=== PATIENT | male | born 1970 | race Caucasian/White ===

== ENCOUNTER 2024-03-09 21:06 | Emergency (ER) | payer MEDICAID, SELFPAY ==
--- NOTE | ~2024-03-09 | US_ITS ---
EXAMINATION: US ABDOMEN LIMITED CLINICAL INFORMATION: Right upper quadrant pain. COMPARISON: None available. TECHNIQUE: Real-time imaging of the right upper quadrant abdominal viscera. FINDINGS: PANCREAS: Normal. LIVER: Normal. The liver is normal in size. The liver contour is normal. Parenchymal echogenicity is normal. No focal hepatic lesion. There is no intrahepatic biliary duct dilatation seen. GALLBLADDER: A single gallstone is noted dependently within the gallbladder lumen measuring 1.5 cm in width in the region of the gallbladder neck with posterior acoustic shadowing. Minimal gallbladder sludge is present elsewhere within the gallbladder lumen. The gallbladder wall measures 3 mm in width, within normal limits of size. No pericholecystic fluid collections noted. No report of obtaining a sonographic Farah sign indicated in the technologist worksheet. COMMON BILE DUCT: Normal in caliber measuring 0.4 cm in diameter. RIGHT KIDNEY: Normal. No hydronephrosis. No renal calculi or focal parenchymal lesions. The kidney measures 12.1 cm in maximum dimension. FREE FLUID: None. US/US abdomen limited IMPRESSION: *Cholelithiasis. Single 1.5 cm gallstone within the gallbladder. No gallbladder wall thickening or pericholecystic fluid collections. No biliary duct dilatation. Electronically signed by: Jose Regan MD 03/10/2024 06:18 AM EDT
[2024-03-09 21:12] VITALS: PULSE 90; O2SAT 99
--- NOTE | 2024-03-09 21:19 | ED_ITS ---
HPI - Abdominal Pain General Chief Complaint: Abdominal Pain Stated Complaint: AB pain-Ab Cancer, not able to sit still,Louise pt Time Seen by Provider: 03/09/24 21:15 Source: patient Mode of arrival: EMS Limitations: no limitations History of Present Illness ED Provider: jose manuel ARRIOLA narrative: Patient has chronic abdominal pain for more than 10 years been to call [facility] multiple times today he went there 3 times comes here for same pain patient is very dramatic and moving all around received 100 mcg of fentanyl and 5 of Versed by EMS Related Data Allergies Allergy/AdvReac Type Severity Reaction Status Date / Time No Known Allergies Allergy Verified 03/09/24 21:27 Review of Systems Review of Systems Yes all other systems are reviewed and are negative [facility] Past Medical History Medical History (Updated 03/10/24 @ 01:57 by Angelo Pinto MD) Chronic abdominal pain Neuroendocrine cancer Social History Social History Smoked in Last 30 Days: Yes Do you have a plan to hurt others: No Plan Physical Exam ED Vital Signs: Vital Signs - 24 hr 03/09/24 21:24 03/09/24 22:22 Pulse Rate 88 54 Respiratory Rate 28 H 18 Blood Pressure 146/96 H 151/90 H Pulse Oximetry 99 99 Oxygen Delivery Method Room Air Room Air BMI result Body Mass Index 33.2 Appearance: Alert. Oriented X3. Shouting in the ER very dramatic Eyes: No pallor or icterus ENT: Pharynx normal. Oral Mucosa moist Neck: Normal inspection. Neck supple. CVS: Normal heart rate and rhythm. Pulses normal. Respiratory: No respiratory distress. Equal air entry bilateral, no wheezing/rales/rhonchi Abdomen: Soft and epigastric tenderness. Bowel sounds are present, no mass palpable, no CVA tenderness Skin: Skin warm and dry. Normal skin color. Normal skin turgor. Extremities: No lower extremity edema. No calf tenderness Neuro: Oriented X 3. No motor deficit. No sensory deficit.No cerebellar signs , cranial nerves II-XII intact Medical Decision Making Medical Decision Making MDM Narrative: Patient's old records from [facility] reviewed had a CT scan of the abdomen in 02/13/2024 which showed partially calcified neuroendocrine mesenteric mass which was stable in size patient received medication for sedation as patient was very agitated on arrival sleeping at this time with stable vitals labs are stable will re-evaluate in the a.m. and plan to discharge once he is sober Lab Data MDM Lab Attestation statement: I reviewed the patient's lab results. 03/10/24 00:29 03/10/24 00:29 Labs: Lab Results 03/10/24 Range/Units 00:29 WBC 15.8 H (4.8-10.8) X10*3/uL RBC 4.98 (4.60-5.80) X10*6/uL Hgb 15.4 (14.0-18.0) g/dl Hct 44.5 (42.0-52.0) % MCV 89.4 (80.0-98.0) fL MCH 30.9 (27.0-33.0) pg MCHC 34.6 (31.0-36.0) g/dl RDW 12.6 (11.0-16.0) % Plt Count 244 (160-400) X10*3/uL MPV 11.2 (9.4-12.4) fL Immature Gran % (Auto) 0.8 H (0.0-0.4) % Neut % (Auto) 83.9 H (45-73) % Lymph % (Auto) 9.7 L (20-40) % [place] % (Auto) 5.1 (2-11) % Eos % (Auto) 0.1 (0-4) % Baso % (Auto) 0.4 (0-2) % Lymph # (Auto) 1.5 (1.2-4.9) X10*3/uL [place] # (Auto) 0.8 (0.1-1.2) X10*3/uL Eos # (Auto) 0.0 (0.0-0.4) X10*3/uL Baso # (Auto) 0.1 (0.0-0.2) X10*3/uL Abs Immat Gran (auto) 0.13 H (0.00-0.03) X10*3/uL Absolute Neuts (auto) 13.2 H (2.0-8.3) x10*3/uL Absolute Nucleated RBC 0.000 (0.0-0.012) X10*3/uL Nucleated RBC % (auto) 0.0 (0.0-0.2) /100WBC Sodium 141 (135-145) mmol/L Potassium 3.4 (3.3-5.1) mmol/L Chloride 104 (96-108) mmol/L Carbon Dioxide 27 (22-29) mmol/L Anion Gap 13 (12-20) BUN 10 (9-16) mg/dL Creatinine 0.95 (0.5-1.4) mg/dL Estim Creat Clear Calc 118.4 Estimated GFR > 60 Random Glucose 155 H (60-115) mg/dL Lactic Acid 1.2 (0.5-2.0) mmol/L Calcium 8.8 (8.4-10.2) mg/dL Magnesium 2.2 (1.6-2.6) mg/dL Total Bilirubin 0.6 (0.0-1.0) mg/dL AST 27 (5-37) U/L ALT 14 (0-40) U/L Alkaline Phosphatase 64 (39-117) U/L Total Protein 7.7 (6.5-8.0) g/dL Albumin 4.6 (3.5-5.0) g/dL Lipase 15 (8-78) U/L Ethyl Alcohol < 10 mg/dL External Record Review External record reviewed: Prior outpatient radiology Medications Administered Discontinued Medications Generic Name Dose Route Start Last Admin Trade Name Freq PRN Reason Stop Dose Admin Diphenhydramine HCl 50 mg 03/09/24 22:00 03/09/24 22:11 Diphenhydramine Hcl 50 Mg/Ml Vial IM 03/09/24 22:01 50 mg ONCE ONE Administration Haloperidol Lactate 5 mg 03/09/24 21:19 03/09/24 21:23 Haloperidol Lactate 5 Mg/Ml Vial IM 03/09/24 21:20 5 mg ONCE ONE Administration Sodium Chloride 1,000 mls @ 999 mls/hr 03/09/24 23:37 03/10/24 00:42 Ns IV 03/10/24 00:37 999 mls/hr .Q1H1M ONE Administration Lorazepam 2 mg 03/09/24 22:00 03/09/24 22:10 Lorazepam 2 Mg/Ml Vial IM 03/09/24 22:01 2 mg STAT STA Administration Olanzapine 10 mg 03/09/24 22:03 10/06/24 22:10 Olanzapine 10 Mg Vial IM 03/09/24 22:04 10 mg ONCE ONE Administration Discharge Plan Discharge Clinical Impression: Abdominal pain, chronic, generalized Patient Disposition: Still a Patient Instructions: Chronic Abdominal Pain (ED) Additional Instructions: Drink plenty of fluid 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
[2024-03-09] MEDS: Haloperidol Lactate 5 MG/ML VIAL IM (21:23)
[2024-03-09 21:24] VITALS: BP 146/96; PULSE 88; RESP 28; O2SAT 99; BMI 33.2
[2024-03-09] MEDS: OLANZapine 10 MG VIAL IM (22:10)
[2024-03-09] MEDS: LORazepam 2 MG/ML VIAL IM (22:10)
[2024-03-09] MEDS: diphenhydrAMINE HCL 50 MG/ML VIAL IM (22:11)
--- NOTE | 2024-03-09 22:12 | PC.NURSE ---
Pt agitated disruptive behavior that his pain is so bad, pacing around his bed and restless. Stating he will willingly take IM medication to relax himself.
--- NOTE | 2024-03-09 22:15 | PC.NURSE ---
Pt found to be sticking his finger in his throat to make himself throw up
[2024-03-09 22:22] VITALS: BP 151/90; PULSE 54; RESP 18; O2SAT 99
--- NOTE | 2024-03-09 22:25 | MHC.EDTECH ---
faxed [facility] for urgent records at [id number]
[2024-03-10] VITALS: BP 148/93; PULSE 66; RESP 20; O2SAT 99
[2024-03-10] MEDS: 0.9 % Sodium Chloride 1,000 ML 999 ML IV (00:42)
[2024-03-10 00:44] LABS: MANUAL DIFF FLAG NO
[2024-03-10 00:45] LABS: Basophils Absolute Auto 0.1 X10*3/uL (0.0-0.2); Basophils Percent Auto 0.4 % (0-2); Eosinophils Percent Auto 0.1 % (0-4); Hematocrit 44.5 % (42.0-52.0); Hemoglobin 15.4 g/dl (14.0-18.0); Imm Gran Abs Auto 0.13 X10*3/uL (0.00-0.03); Imm Gran Pct Auto 0.8 % (0.0-0.4); Lymphocytes Absolute Auto 1.5 X10*3/uL (1.2-4.9); Lymphocytes Percent Auto 9.7 % (20-40); Mean Corpuscular HGB Conc 34.6 g/dl (31.0-36.0); Mean Corpuscular Hemoglobin 30.9 pg (27.0-33.0); Mean Corpuscular Volume 89.4 fL (80.0-98.0); Mean Platelet Volume 11.2 fL (9.4-12.4); Monocytes Absolute Auto 0.8 X10*3/uL (0.1-1.2); Monocytes Percent Auto 5.1 % (2-11); Neutrophils Absolute Auto 13.2 x10*3/uL (2.0-8.3); Neutrophils Percent Auto 83.9 % (45-73); Platelet Count 244 X10*3/uL (160-400); Red Blood Count 4.98 X10*6/uL (4.60-5.80); Red Cell Distribution Width 12.6 % (11.0-16.0); White Blood Count 15.8 X10*3/uL (4.8-10.8)
[2024-03-10 00:57] LABS: Lactic Acid 1.2 mmol/L (0.5-2.0)
[2024-03-10 01:06] LABS: Alanine Aminotransferase 14 U/L (0-40); Albumin Level 4.6 g/dL (3.5-5.0); Alkaline Phosphatase 64 U/L (39-117); Anion Gap 13 (12-20); Aspartate Amino Transferase 27 U/L (5-37); Bilirubin Total 0.6 mg/dL (0.0-1.0); Blood Urea Nitrogen 10 mg/dL (9-16); Calcium 8.8 mg/dL (8.4-10.2); Carbon Dioxide 27 mmol/L (22-29); Chloride 104 mmol/L (96-108); Creatinine Clr Calc Pharmacy 118.4; Estimated Glomerular Filt Rate > 60; Ethanol < 10 mg/dL; Glucose Random 155 mg/dL (60-115); Lipase 15 U/L (8-78); Magnesium 2.2 mg/dL (1.6-2.6); Potassium 3.4 mmol/L (3.3-5.1); Sodium 141 mmol/L (135-145); Total Protein 7.7 g/dL (6.5-8.0)
[2024-03-10 02:00] VITALS: BP 142/88; PULSE 78; RESP 18; TEMP 36.8; O2SAT 100
[2024-03-10 05:42] VITALS: BP 102/65; PULSE 71; RESP 14; TEMP 36.6; O2SAT 96
[2024-03-10 09:34] VITALS: BP 117/80; PULSE 63; RESP 16; TEMP 36.7; O2SAT 97
[2024-03-10 09:35] VITALS: BP 117/80; PULSE 63; RESP 16; TEMP 36.7; O2SAT 97
== END 2024-03-10 09:38 | disposition home or self-care (01) ==
PROVIDERS: Internal Medicine; Emergency Provider Emergency Medicine Emergency Medical Services
DX: K80.20 Calculus of gallbladder without cholecystitis without obstruction (principal); G89.29 Other chronic pain; R10.84 Generalized abdominal pain; R45.1 Restlessness and agitation; R10.13 Epigastric pain; C7A.8 Other malignant neuroendocrine tumors
CPT/HCPCS: 36415; 76705; 80053; 80307; 83605; 83690; 83735; 85025; 96372; 99284; J1200; J1630; J2060; J2359

== ENCOUNTER 2024-03-12 17:08 | Emergency (ER) | payer MEDICAID, SELFPAY ==
--- NOTE | ~2024-03-12 | CT_ITS ---
EXAMINATION: CT ABDOMEN AND PELVIS WITH CONTRAST CLINICAL INFORMATION: Right upper quadrant pain, cholecystitis. COMPARISON: None available. TECHNIQUE: Multidetector volumetric images were obtained from the superior aspect of the liver through the pubic symphysis following administration 85 mL of Omnipaque 350 intravenous contrast. Sagittal and coronal reformatted images were obtained on the technologist's workstation. Oral contrast: No This CT examination was performed using dose optimization techniques as appropriate, variously including the following: *Automated exposure control *Adjustment of mA and/or kV according to patient size (this includes techniques or standardized protocols for targeted exams where dose is matched to indication/reason for exam; i.e. extremities or head) *Use of iterative reconstruction technique DLP: 578 mGy-cm FINDINGS: LUNG BASES: There is a small hiatal hernia. The lung bases are clear. LIVER, GALLBLADDER, AND BILIARY TREE: The liver is normal in size, shape, and attenuation. No focal hepatic lesion or biliary ductal dilatation is present. The gallbladder is unremarkable with no evidence of radiopaque gallstones, gallbladder wall thickening, or obvious pericholecystic inflammatory changes. There is some visualized gallstones not visualized and likely radiolucent or small. PANCREAS: Unremarkable. SPLEEN: Unremarkable. ADRENAL GLANDS: Unremarkable. KIDNEYS AND URETERS: The kidneys are normal in size, shape, and attenuation. No hydronephrosis, hydroureter, or calculi seen. No perinephric stranding. There is a 7 mm upper pole and 2.7 cm lower pole cyst left kidney. BLADDER: The bladder is nondistended with diffuse bladder wall thickening. GASTROINTESTINAL TRACT: Scattered stool and gas is seen throughout the colon without distention. Appendix is visualized and is of normal caliber with small appendicolith within. No inflammatory changes seen in the right lower quadrant. The large cyst mesenteric soft tissue mass measuring 7.8 cm wide, 4 cm in craniocaudad length and 4 cm in AP dimension with a small central calcification. There is mild mesenteric radiating fibers from this mass on coronal image 32/6 suspicious for a carcinoid or matted lymphadenopathy some of the small bowel loops appear matted together inferior to this larger mass. ABDOMINAL WALL: No significant hernia is appreciated. LYMPH NODES: In addition to large mesenteric mass there are several small mesenteric lymph nodes measuring centimeter and less. VASCULAR: Unremarkable. PELVIC VISCERA: There is mild mural thickening of the sigmoid colon but no pericolic fat stranding seen. No free fluid. No abnormal pelvic lymph nodes. The prostate gland is mildly enlarged with central gland calcification. OSSEOUS STRUCTURES: Mild degenerative disc changes with vacuum disc phenomena and spondylosis L4-[address]/CT abdomen pelvis w IV con IMPRESSION: Large mesenteric mass with radiating mesenteric stranding and clumping of small bowel loops inferior to this mass. A solitary calcification as well. Findings are suspicious for carcinoid. Normal appendix with appendicolith within. No inflammatory process in the right lower quadrant. Ultrasound visualized gallstone is not seen by CT. Likely radiolucent or small. Left renal cyst. Nonspecific mild urinary bladder wall thickening Small hiatal hernia. Mild constipation.. Nonspecific mild mural thickening of sigmoid colon likely from underdistention. Fleischner guidelines were followed. Electronically signed by: Tutu Gibbs MD 03/12/2024 08:40 PM EDT
[2024-03-12 17:12] VITALS: BP 156/86; PULSE 130; O2SAT 90
--- NOTE | 2024-03-12 17:29 | ED_ITS ---
HPI - Abdominal Pain General Chief Complaint: Abdominal Pain Stated Complaint: AB pain here on sunday, n/v x3 days Time Seen by Provider: 03/12/24 17:29 Source: patient Limitations: no limitations History of Present Illness ED Provider: Johanna Stephens PA-C HPI narrative: 53-year-old male presents with the abdominal pain x3 days. Pain over right upper quadrant, is severe, patient unable to describe the nature of his discomfort. Associated intractable nausea vomiting. Denies fever. Patient was seen in the ED 2 days ago with same symptoms, he was found to have gallstones. Related Data Allergies Allergy/AdvReac Type Severity Reaction Status Date / Time No Known Allergies Allergy Verified 03/12/24 17:28 Review of Systems Review of Systems Yes all other systems are reviewed and are negative Constitutional: Denies fever(s) Cardiovascular: Denies chest pain and Denies dyspnea Respiratory: Denies cough and Denies dyspnea Gastrointestinal: Reports abdominal pain, Denies diarrhea, Reports nausea and Reports vomiting PMFSH Past Medical History Attestation statement: The following information was validated with the patient. Medical History (Updated 03/12/24 @ 21:39 by JOSÉ MANUEL Coppola) Chronic abdominal pain Neuroendocrine cancer Social History Social History Smoked in Last 30 Days: No Use of substances other than those prescribed or required for medical reasons: No Advance Directives: No Advance Directives Information Provided: No Do you have a plan to hurt others: No Plan Physical Exam ED Vital Signs: Vital Signs - 24 hr 03/12/24 17:33 03/12/24 19:22 03/12/24 19:26 Temperature 99.2 F 98.0 F Pulse Rate 75 89 Respiratory Rate 24 H 14 Blood Pressure 154/85 H 131/82 Pulse Oximetry 100 97 Oxygen Delivery Method Room Air Room Air BMI result Body Mass Index 30.0 Const Other: Alert, appears uncomfortable is tearful and unable to sit still in the bed Orientation/consciousness: patient oriented x3 HENMT Other: Dry oral mucosa, dry cracked lips Resp Effort & Inspection: normal respiratory effort Cardio Other: Normal peripheral perfusion GI Other: Abdomen is soft, nondistended, moderate to severe tenderness right upper quadrant and epigastric region with moderate involuntary guarding Skin Other: Warm dry no rash Neuro General: patient oriented x3, no focal motor deficits and CN's II-XI intact bilaterally Psych Other: Cooperative Course Reevaluation(s) Reevaluation #1: Dr. Briseno, the surgeon on-call, happened to be in the ED at this time, he advises to obtain a CT scan we will discontinue the ultrasound Time: 17:51 Reevaluation #2: CT scan back, I am tiger text me Dr. Briseno he called me, the findings are old, he also has follow up Time: 21:03 Medical Decision Making Medical Decision Making MDM Narrative: 53-year-old male presents with the abdominal pain x3 days. Pain over right upper quadrant, is severe, patient unable to describe the nature of his discomfort. Associated intractable nausea vomiting. Denies fever. Patient was seen in the ED 2 days ago with same symptoms, he was found to have gallstones. Problem: Known gallstones History: Per patient I have considered the following differential diagnoses: Cholecystitis, biliary colic, choledocholithiasis, cholangitis, gastritis, pancreatitis Plan: Patient's exam was concerning, he appears extremely uncomfortable, he is actively vomiting. I am most concerned for cholecystitis. We will be screening basic labs, LFTs, lipase, direct bili, Mag and another ultrasound. We will be given droperidol , morphine and IV fluid. I have independently reviewed the following tests: Labs: CT abdomen and pelvis:Right upper quadrant pain, cholecystitis. COMPARISON: None available. TECHNIQUE: Multidetector volumetric images were obtained from the superior aspect of the liver through the pubic symphysis following administration 85 mL of Omnipaque 350 intravenous contrast. Sagittal and coronal reformatted images were obtained on the technologist's workstation. Oral contrast: No This CT examination was performed using dose optimization techniques as appropriate, variously including the following: *Automated exposure control *Adjustment of mA and/or kV according to patient size (this includes techniques or standardized protocols for targeted exams where dose is matched to indication/reason for exam; i.e. extremities or head) *Use of iterative reconstruction technique DLP: 578 mGy-cm FINDINGS: LUNG BASES: There is a small hiatal hernia. The lung bases are clear. LIVER, GALLBLADDER, AND BILIARY TREE: The liver is normal in size, shape, and attenuation. No focal hepatic lesion or biliary ductal dilatation is present. The gallbladder is unremarkable with no evidence of radiopaque gallstones, gallbladder wall thickening, or obvious pericholecystic inflammatory changes. There is some visualized gallstones not visualized and likely radiolucent or small. PANCREAS: Unremarkable. SPLEEN: Unremarkable. ADRENAL GLANDS: Unremarkable. KIDNEYS AND URETERS: The kidneys are normal in size, shape, and attenuation. No hydronephrosis, hydroureter, or calculi seen. No perinephric stranding. There is a 7 mm upper pole and 2.7 cm lower pole cyst left kidney. BLADDER: The bladder is nondistended with diffuse bladder wall thickening. GASTROINTESTINAL TRACT: Scattered stool and gas is seen throughout the colon without distention. Appendix is visualized and is of normal caliber with small appendicolith within. No inflammatory changes seen in the right lower quadrant. The large cyst mesenteric soft tissue mass measuring 7.8 cm wide, 4 cm in craniocaudad length and 4 cm in AP dimension with a small central calcification. There is mild mesenteric radiating fibers from this mass on coronal image 32/6 suspicious for a carcinoid or matted lymphadenopathy some of the small bowel loops appear matted together inferior to this larger mass. ABDOMINAL WALL: No significant hernia is appreciated. LYMPH NODES: In addition to large mesenteric mass there are several small mesenteric lymph nodes measuring centimeter and less. VASCULAR: Unremarkable. PELVIC VISCERA: There is mild mural thickening of the sigmoid colon but no pericolic fat stranding seen. No free fluid. No abnormal pelvic lymph nodes. The prostate gland is mildly enlarged with central gland calcification. OSSEOUS STRUCTURES: Mild degenerative disc changes with vacuum disc phenomena and spondylosis L4-[address]/CT abdomen pelvis w IV con IMPRESSION: Large mesenteric mass with radiating mesenteric stranding and clumping of small bowel loops inferior to this mass. A solitary calcification as well. Findings are suspicious for carcinoid. Normal appendix with appendicolith within. No inflammatory process in the right lower quadrant. Ultrasound visualized gallstone is not seen by CT. Likely radiolucent or small. Left renal cyst. Nonspecific mild urinary bladder wall thickening Small hiatal hernia. Mild constipation.. Nonspecific mild mural thickening of sigmoid colon likely from underdistention. Fleischner guidelines were followed. Lab Data 03/12/24 18:22 03/12/24 18:22 Labs: Lab Results 03/12/24 03/12/2424 Range/Units 18:12 18:21 18:22 WBC 13.6 H (4.8-10.8) X10*3/uL RBC 4.89 (4.60-5.80) X10*6/uL Hgb 15.1 (14.0-18.0) g/dl Hct 43.7 (42.0-52.0) % MCV 89.4 (80.0-98.0) fL MCH 30.9 (27.0-33.0) pg MCHC 34.6 (31.0-36.0) g/dl RDW 12.6 (11.0-16.0) % Plt Count 273 (160-400) X10*3/uL MPV 11.1 (9.4-12.4) fL Immature Gran % (Auto) 0.8 H (0.0-0.4) % Neut % (Auto) 71.0 (45-73) % Lymph % (Auto) 18.9 L (20-40) % [place] % (Auto) 7.3 (2-11) % Eos % (Auto) 1.3 (0-4) % Baso % (Auto) 0.7 (0-2) % Lymph # (Auto) 2.6 (1.2-4.9) X10*3/uL [place] # (Auto) 1.0 (0.1-1.2) X10*3/uL Eos # (Auto) 0.2 (0.0-0.4) X10*3/uL Baso # (Auto) 0.1 (0.0-0.2) X10*3/uL Abs Immat Gran (auto) 0.11 H (0.00-0.03) X10*3/uL Absolute Neuts (auto) 9.7 H (2.0-8.3) x10*3/uL Absolute Nucleated RBC 0.000 (0.0-0.012) X10*3/uL Nucleated RBC % (auto) 0.0 (0.0-0.2) /100WBC Sodium 143 (135-145) mmol/L Potassium 3.6 (3.3-5.1) mmol/L Chloride 106 (96-108) mmol/L Carbon Dioxide 24 (22-29) mmol/L Anion Gap 17 (12-20) BUN 14 (9-16) mg/dL Creatinine 0.94 (0.5-1.4) mg/dL Estim Creat Clear Calc 113.9 Estimated GFR > 60 Random Glucose 124 H (60-115) mg/dL Lactic Acid 2.8 H* (0.5-2.0) mmol/L Calcium 9.6 D (8.4-10.2) mg/dL Magnesium 2.1 (1.6-2.6) mg/dL Total Bilirubin 0.7 (0.0-1.0) mg/dL Direct Bilirubin 0.3 (0.0-0.5) mg/dL AST 26 (5-37) U/L ALT 17 (0-40) U/L Alkaline Phosphatase 62 (39-117) U/L Total Protein 7.6 (6.5-8.0) g/dL Albumin 4.5 (3.5-5.0) g/dL Lipase 21 (8-78) U/L 03/12/24 Range/Units 19:25 WBC (4.8-10.8) X10*3/uL RBC (4.60-5.80) X10*6/uL Hgb (14.0-18.0) g/dl Hct (42.0-52.0) % MCV (80.0-98.0) fL MCH (27.0-33.0) pg MCHC (31.0-36.0) g/dl RDW (11.0-16.0) % Plt Count (160-400) X10*3/uL MPV (9.4-12.4) fL Immature Gran % (Auto) (0.0-0.4) % Neut % (Auto) (45-73) % Lymph % (Auto) (20-40) % [place] % (Auto) (2-11) % Eos % (Auto) (0-4) % Baso % (Auto) (0-2) % Lymph # (Auto) (1.2-4.9) X10*3/uL [place] # (Auto) (0.1-1.2) X10*3/uL Eos # (Auto) (0.0-0.4) X10*3/uL Baso # (Auto) (0.0-0.2) X10*3/uL Abs Immat Gran (auto) (0.00-0.03) X10*3/uL Absolute Neuts (auto) (2.0-8.3) x10*3/uL Absolute Nucleated RBC (0.0-0.012) X10*3/uL Nucleated RBC % (auto) (0.0-0.2) /100WBC Sodium (135-145) mmol/L Potassium (3.3-5.1) mmol/L Chloride (96-108) mmol/L Carbon Dioxide (22-29) mmol/L Anion Gap (12-20) BUN (9-16) mg/dL Creatinine (0.5-1.4) mg/dL Estim Creat Clear Calc Estimated GFR Random Glucose (60-115) mg/dL Lactic Acid 0.8 (0.5-2.0) mmol/L Calcium (8.4-10.2) mg/dL Magnesium (1.6-2.6) mg/dL Total Bilirubin (0.0-1.0) mg/dL Direct Bilirubin (0.0-0.5) mg/dL AST (5-37) U/L ALT (0-40) U/L Alkaline Phosphatase (39-117) U/L Total Protein (6.5-8.0) g/dL Albumin (3.5-5.0) g/dL Lipase (8-78) U/L Medications Administered Discontinued Medications Generic Name Dose Route Start Last Admin Trade Name Freq PRN Reason Stop Dose Admin Droperidol 1.25 mg 03/12/24 17:35 03/12/24 17:43 Droperidol 5 Mg/2 Ml Vial IVPUSH 03/12/24 17:36 1.25 mg ONCE ONE Administration Sodium Chloride 500 mls @ 500 mls/hr 03/12/24 17:35 03/12/24 19:03 Ns IV 03/12/24 18:34 Infused .Q1H ONE Infusion Iohexol 100 ml 03/12/24 18:42 03/12/24 18:42 Iohexol 350 Mg/Ml 100 Ml Infus..Btl IV 03/12/24 18:43 85 ml ONCE ONE Administration Morphine Sulfate 8 mg 03/12/24 17:35 03/12/24 17:43 Morphine Sulfate 10 Mg/Ml Cartridge IVPUSH 03/12/24 17:36 8 mg ONCE ONE Administration Protocol Discharge Plan Discharge Clinical Impression: Abdominal pain, chronic, generalized Patient Disposition: Home, Self-Care Instructions: Chronic Abdominal Pain (ED) Additional Instructions: There were no acute findings today, all of your labs are normal, as you were told the other day when you were seen, you need to follow up with your hospital cleaning specialist and healthcare providers in regard to the mass that was found on the CT scan, in February of this year, at [facility]. We obtained old records to review. Print Language: Welsh
[2024-03-12 17:33] VITALS: BP 154/85; PULSE 75; RESP 24; TEMP 37.3; O2SAT 100
[2024-03-12] MEDS: 0.9 % Sodium Chloride 500 ML IV (17:42)
[2024-03-12] MEDS: droPERidol 5 MG/2 ML VIAL 1.25 MG IVPUSH (17:43)
[2024-03-12] MEDS: Morphine Sulfate 10 MG/ML CARTRIDGE 8 MG IVPUSH (17:43)
[2024-03-12 18:26] LABS: MANUAL DIFF FLAG NO
[2024-03-12 18:29] LABS: Basophils Absolute Auto 0.1 X10*3/uL (0.0-0.2); Basophils Percent Auto 0.7 % (0-2); Eosinophils Absolute Auto 0.2 X10*3/uL (0.0-0.4); Eosinophils Percent Auto 1.3 % (0-4); Hematocrit 43.7 % (42.0-52.0); Hemoglobin 15.1 g/dl (14.0-18.0); Imm Gran Abs Auto 0.11 X10*3/uL (0.00-0.03); Imm Gran Pct Auto 0.8 % (0.0-0.4); Lymphocytes Absolute Auto 2.6 X10*3/uL (1.2-4.9); Lymphocytes Percent Auto 18.9 % (20-40); Mean Corpuscular HGB Conc 34.6 g/dl (31.0-36.0); Mean Corpuscular Hemoglobin 30.9 pg (27.0-33.0); Mean Corpuscular Volume 89.4 fL (80.0-98.0); Mean Platelet Volume 11.1 fL (9.4-12.4); Monocytes Percent Auto 7.3 % (2-11); Neutrophils Absolute Auto 9.7 x10*3/uL (2.0-8.3); Platelet Count 273 X10*3/uL (160-400); Red Blood Count 4.89 X10*6/uL (4.60-5.80); Red Cell Distribution Width 12.6 % (11.0-16.0); White Blood Count 13.6 X10*3/uL (4.8-10.8)
[2024-03-12] MEDS: iohexoL 350 MG/ML 100 ML INFUS..BTL IV (18:42)
[2024-03-12 18:49] LABS: Alanine Aminotransferase 17 U/L (0-40); Albumin Level 4.5 g/dL (3.5-5.0); Alkaline Phosphatase 62 U/L (39-117); Anion Gap 17 (12-20); Aspartate Amino Transferase 26 U/L (5-37); Bilirubin Total 0.7 mg/dL (0.0-1.0); Blood Urea Nitrogen 14 mg/dL (9-16); Calcium 9.6 mg/dL (8.4-10.2); Carbon Dioxide 24 mmol/L (22-29); Chloride 106 mmol/L (96-108); Creatinine Clr Calc Pharmacy 113.9; Estimated Glomerular Filt Rate > 60; Glucose Random 124 mg/dL (60-115); Lipase 21 U/L (8-78); Magnesium 2.1 mg/dL (1.6-2.6); Potassium 3.6 mmol/L (3.3-5.1); Sodium 143 mmol/L (135-145); Total Protein 7.6 g/dL (6.5-8.0)
[2024-03-12 18:50] LABS: Bilirubin Direct 0.3 mg/dL (0.0-0.5)
[2024-03-12 18:53] LABS: Lactic Acid 2.8 mmol/L (0.5-2.0)
[2024-03-12 19:22] VITALS: BP 131/82; PULSE 89; RESP 14; O2SAT 97
[2024-03-12 19:26] VITALS: TEMP 36.7
[2024-03-12 19:45] LABS: Lactic Acid 0.8 mmol/L (0.5-2.0)
--- NOTE | 2024-03-12 19:59 | PC.NURSE ---
Patient resting comfortably on stretcher, stats pain is 3/10, holding off on additional pain meds, provider yoshi made aware.
[2024-03-12 20:21] LABS: Reflex Lactate? Lactic Acid Added
[2024-03-12 21:57] VITALS: BP 120/74; PULSE 69; RESP 16; TEMP 37.1; O2SAT 100
== END 2024-03-12 22:13 | disposition home or self-care (01) ==
PROVIDERS: Physician Assistant Medical; Emergency Provider Internal Medicine; PCP Physician Assistant
DX: R10.84 Generalized abdominal pain (principal); G89.29 Other chronic pain; C7A.8 Other malignant neuroendocrine tumors
CPT/HCPCS: 36415; 74177; 80053; 82248; 83605; 83690; 83735; 85025; 87040; 96361; 96374; 96375; 99284; J1790; J2270; Q9967

== ENCOUNTER 2024-05-12 03:30 | Emergency (ER) | payer MEDICAID, SELFPAY ==
[2024-05-12 03:30] VITALS: BMI 29.7
[2024-05-12 03:37] VITALS: BP 154/102; PULSE 88; RESP 22
--- NOTE | 2024-05-12 03:50 | ED.ABDPAIN ---
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 been having pain in abdomen off and on comes here for similar pain started 2 hours prior to arrival patient is very anxious associated with nausea no vomiting no diarrhea no abdominal distention Related Data Previous Rx's ?Medication ?Instructions ?Recorded oxycodone 5 mg tablet 5 mg PO Q6H PRN pain #20 tabs 05/12/24 Allergies Allergy/AdvReac Type Severity Reaction Status Date / Time No Known Allergies Allergy Verified 05/12/24 03:35 Review of Systems Review of Systems Yes all other systems are reviewed and are negative [facility] Past Medical History Medical History Chronic abdominal pain Neuroendocrine cancer Social History Social History Alcohol intake: never Smoked in Last 30 Days: Yes Use of substances other than those prescribed or required for medical reasons: Yes Substance Use Type: Marijuana Advance Directives: No Advance Directives Information Provided: Yes Do you have a plan to hurt others: No Plan Physical Exam ED Vital Signs: Vital Signs - 24 hr 05/12/24 03:37 05/12/24 05:08 Temperature 97.6 F Pulse Rate 88 58 Respiratory Rate 22 H 16 Blood Pressure 154/102 H 103/85 Pulse Oximetry 94 Oxygen Delivery Method Room Air BMI result Body Mass Index 29.7 Appearance: Alert. Oriented X3. Anxious in pain Eyes: PERRLA, No Nystagmus ENT: Pharynx normal. Oral Mucosa moist Neck: Normal inspection. Neck supple. CVS: Normal heart rate and rhythm. Pulses normal. Respiratory: No respiratory distress. Equal air entry bilateral, no wheezing/rales/rhonchi Abdomen: Soft and diffuse tenderness with abdomen Bowel sounds are present, no mass palpable, no CVA tenderness Skin: Skin warm and dry. Normal skin color. Normal skin turgor. Extremities: No lower extremity edema. No calf tenderness Neuro: Oriented X 3. No motor deficit. No sensory deficit.No cerebellar signs , cranial nerves II-XII intact Medical Decision Making Medical Decision Making [facility] Narrative: Patient with carcinoid tumor of the mesentery with chronic pain more than 10 years comes here with similar pain and anxiety after lorazepam at more Dilaudid patient has been feeling much better sleeping at this time labs are stable Lab Data [facility] Lab Attestation statement: I reviewed the patient's lab results. 05/12/24 03:50 05/12/24 03:50 Labs: Lab Results 05/12/24 Range/Units 03:50 WBC 13.1 H (4.8-10.8) X10*3/uL RBC 4.55 L (4.60-5.80) X10*6/uL Hgb 13.9 L (14.0-18.0) g/dl Hct 40.2 L (42.0-52.0) % MCV 88.4 (80.0-98.0) fL MCH 30.5 (27.0-33.0) pg MCHC 34.6 (31.0-36.0) g/dl RDW 12.5 (11.0-16.0) % Plt Count 274 (160-400) X10*3/uL MPV 10.5 (9.4-12.4) fL Immature Gran % (Auto) 0.2 (0.0-0.4) % Neut % (Auto) 41.4 L (45-73) % Lymph % (Auto) 41.5 H (20-40) % [place] % (Auto) 14.3 H (2-11) % Eos % (Auto) 2.1 (0-4) % Baso % (Auto) 0.5 (0-2) % Lymph # (Auto) 5.4 H (1.2-4.9) X10*3/uL [place] # (Auto) 1.9 H (0.1-1.2) X10*3/uL Eos # (Auto) 0.3 (0.0-0.4) X10*3/uL Baso # (Auto) 0.1 (0.0-0.2) X10*3/uL Abs Immat Gran (auto) 0.03 (0.00-0.03) X10*3/uL Absolute Neuts (auto) 5.4 (2.0-8.3) x10*3/uL Absolute Nucleated RBC 0.000 (0.0-0.012) X10*3/uL Nucleated RBC % (auto) 0.0 (0.0-0.2) /100WBC Smear Tech's Comments VERIFIED Sodium 141 (135-145) mmol/L Potassium 3.7 (3.3-5.1) mmol/L Chloride 105 (96-108) mmol/L Carbon Dioxide 23 (22-29) mmol/L Anion Gap 17 (12-20) BUN 17 H (9-16) mg/dL Creatinine 0.88 (0.5-1.4) mg/dL Estim Creat Clear Calc 130.3 Estimated GFR > 60 Random Glucose 106 (60-115) mg/dL Calcium 9.8 (8.4-10.2) mg/dL Total Bilirubin 0.5 (0.0-1.0) mg/dL AST 20 (5-37) U/L ALT 16 (0-40) U/L Alkaline Phosphatase 62 (39-117) U/L Troponin I High Sens < 2.7 (<3.5-35.0) ng/L Total Protein 7.4 (6.5-8.0) g/dL Albumin 4.4 (3.5-5.0) g/dL Medications Administered Discontinued Medications Generic Name Dose Route Start Last Admin Trade Name Freq PRN Reason Stop Dose Admin Hydromorphone HCl 2 mg 05/12/24 03:54 05/12/24 04:01 Hydromorphone Hcl 2 Mg/Ml Vial IVPUSH 05/12/24 03:55 2 mg ONCE ONE Administration Protocol Lorazepam 2 mg 05/12/24 03:54 05/12/24 04:01 Lorazepam 2 Mg/Ml Vial IVPUSH 05/12/24 03:55 2 mg ONCE ONE Administration Ondansetron HCl 4 mg 05/12/24 03:54 05/12/24 04:01 Ondansetron Hcl 4 Mg/2 Ml Vial IVPUSH 05/12/24 03:55 4 mg ONCE ONE Administration Discharge Plan Discharge Clinical Impression: Abdominal pain Patient Disposition: Home, Self-Care Instructions: Abdominal Pain (ED) Additional Instructions: Follow up with your PCP for further management pain medication as prescribed Prescriptions: New oxycodone 5 mg tablet 5 mg PO Q6H PRN (Reason: pain) Qty: 20 0RF Rx Instructions: Partial Fill upon patient request. Print Language: German
[2024-05-12 03:56] LABS: Basophils Absolute Auto 0.1 X10*3/uL (0.0-0.2); Basophils Percent Auto 0.5 % (0-2); Eosinophils Absolute Auto 0.3 X10*3/uL (0.0-0.4); Eosinophils Percent Auto 2.1 % (0-4); Hematocrit 40.2 % (42.0-52.0); Hemoglobin 13.9 g/dl (14.0-18.0); Imm Gran Abs Auto 0.03 X10*3/uL (0.00-0.03); Imm Gran Pct Auto 0.2 % (0.0-0.4); Lymphocytes Absolute Auto 5.4 X10*3/uL (1.2-4.9); Lymphocytes Percent Auto 41.5 % (20-40); MANUAL DIFF FLAG SCAN; Mean Corpuscular HGB Conc 34.6 g/dl (31.0-36.0); Mean Corpuscular Hemoglobin 30.5 pg (27.0-33.0); Mean Corpuscular Volume 88.4 fL (80.0-98.0); Mean Platelet Volume 10.5 fL (9.4-12.4); Monocytes Absolute Auto 1.9 X10*3/uL (0.1-1.2); Monocytes Percent Auto 14.3 % (2-11); Neutrophils Absolute Auto 5.4 x10*3/uL (2.0-8.3); Neutrophils Percent Auto 41.4 % (45-73); Platelet Count 274 X10*3/uL (160-400); Red Blood Count 4.55 X10*6/uL (4.60-5.80); Red Cell Distribution Width 12.5 % (11.0-16.0); SCAN SMEAR FLAG 1; White Blood Count 13.1 X10*3/uL (4.8-10.8)
--- NOTE | 2024-05-12 03:59 | MHC.EDTECH ---
EKG unable to be obtained at this time due to not being able to sit still and diaphoretic. EKG will be obtained once PT has calmed down and can sit still
[2024-05-12] MEDS: HYDROmorphone HCl 2 MG/ML VIAL IVPUSH (04:01)
[2024-05-12] MEDS: LORazepam 2 MG/ML VIAL IVPUSH (04:01)
[2024-05-12] MEDS: ondansetron HCL 4 MG/2 ML VIAL IVPUSH (04:01)
[2024-05-12 04:09] LABS: Alanine Aminotransferase 16 U/L (0-40); Albumin Level 4.4 g/dL (3.5-5.0); Alkaline Phosphatase 62 U/L (39-117); Anion Gap 17 (12-20); Aspartate Amino Transferase 20 U/L (5-37); Bilirubin Total 0.5 mg/dL (0.0-1.0); Blood Urea Nitrogen 17 mg/dL (9-16); Calcium 9.8 mg/dL (8.4-10.2); Carbon Dioxide 23 mmol/L (22-29); Chloride 105 mmol/L (96-108); Creatinine Clr Calc Pharmacy 130.3; Estimated Glomerular Filt Rate > 60; Glucose Random 106 mg/dL (60-115); Potassium 3.7 mmol/L (3.3-5.1); Sodium 141 mmol/L (135-145); Total Protein 7.4 g/dL (6.5-8.0)
[2024-05-12 04:18] LABS: SLIDE REVIEW VERIFIED
[2024-05-12 04:20] LABS: Troponin-I High Sensitivity < 2.7 ng/L (<3.5-35.0)
[2024-05-12 05:08] VITALS: BP 103/85; PULSE 58; RESP 16; TEMP 36.4; O2SAT 94
--- NOTE | 2024-05-12 07:35 | PC.NURSE ---
Resumed care of patient at 0700, pt DC was in place. Pt brought DC paperwork and escorted off unit to personal car
[2024-05-12 07:36] VITALS: BP 0/0; PULSE 0; RESP 0; TEMP -17.7; TEMP 0; O2SAT 0
== END 2024-05-12 07:37 | disposition home or self-care (01) ==
PROVIDERS: Emergency Provider Internal Medicine; PCP Physician Assistant
DX: R10.2 Pelvic and perineal pain (principal); F41.9 Anxiety disorder, unspecified; R11.0 Nausea; Z79.899 Other long term (current) drug therapy
CPT/HCPCS: 36415; 80053; 84484; 85025; 96374; 96375; 99284; J1171; J2060; J2405

== ENCOUNTER 2024-05-14 12:40 | Emergency (ER) | payer MEDICAID, SELFPAY | END 2024-05-14 13:30 | disposition left against medical advice (07) | PROVIDERS: Emergency Provider Emergency Medicine; PCP Physician Assistant | DX: R10.9 Unspecified abdominal pain (principal); Z53.21 Procedure and treatment not carried out due to patient leaving prior to being seen by health care provider ==

== ENCOUNTER 2025-03-31 23:08 | Emergency (ER) | payer MEDICAID, SELFPAY ==
--- NOTE | ~2025-03-31 | XR_ITS ---
CLINICAL HISTORY: shortness of breath 1 view chest x-ray Comparison: None provided Findings: Low lung volumes with mild bibasilar atelectasis/pneumonitis, left worse than right. No pneumothorax or pleural effusion in the portable study with mild elevation of the left hemidiaphragm. Cardiac silhouette upper limits of normal for AP technique. Mild tortuosity thoracic aorta accentuated by rightward curvature of the partially imaged spine. Degenerative changes include imaged AC joints. IMPRESSION: Mild bibasilar atelectasis/pneumonitis This document has been electronically signed by: Emile Parr MD on 04/01/2025 01:28:15
[2025-03-31 23:11] VITALS: BP 124/77; PULSE 80; RESP 30; O2SAT 100; BMI 29.7
--- NOTE | 2025-03-31 23:25 | ED.GENADULT ---
HPI - General Adult General Chief complaint: ETOH/Substance Use Stated complaint: Gen Med Time Seen by Provider: 03/31/25 23:16 History of Present Illness ED Provider: Brea ARRIOLA narrative: The patient is a 55-year-old male who has a history of a known neuroendocrine tumor in his abdomen. He presents to the emergency room after developing what seems to be fairly abrupt onset abdominal pain. He was with a friend at the time of the onset of the pain. The friend says ?he was fine an hour ago. ? When I asked the patient how long he has been feeling unwell he responded ?my whole fucking life. When I told him that his repack room worker had just said that he was fine an hour ago he responded ?I drank too much. ? The patient is a poor historian. He arrived hysterical and histrionic complaining of abdominal pain and that he can not breathe. When I spoke to him he perseverated about drinking too much. He was unable to tell me if he has had episodes like this before. He apparently vomited a lot for arriving in the emergency room. His friend also thinks that he took morphine pills before coming to the hospital. A review of the state website indicates that the patient last filled a prescription for morphine sulfate immediate release tablets, 15 mg each on March 03, 28 days ago. The prescription was supposed to be for a 7 day supply. According to his repack room worker the patient lives in [place] with a roommate. 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 Apparently the patient's sees a palliative care doctor for chronic pain attributed to his neuroendocrine tumor. The palliative care doctor's the prescriber of his morphine. Related Data Home Medications ?Medication ?Instructions ?Recorded ?Confirmed amlodipine 10 mg tablet 10 mg PO DAILY 04/01/25 04/01/25 bupropion HCl 300 mg 24 hr tablet, 300 mg PO DAILY 04/01/25 04/01/25 extended release dextroamphetamine-amphetamine 10 1 tab PO BID 04/01/25 04/01/25 mg tablet escitalopram oxalate 5 mg tablet 5 mg PO DAILY 04/01/25 04/01/25 lisinopril 40 mg tablet 40 mg PO DAILY 04/01/25 04/01/25 Allergies Allergy/AdvReac Type Severity Reaction Status Date / Time No Known Allergies Allergy Verified 04/01/25 07:22 Review of Systems Review of Systems: Yes Unobtainable due to mental status [facility] Past Medical History Medical History Chronic abdominal pain Neuroendocrine cancer Social History Social History Alcohol intake: current Alcohol intake frequency: 3 or more drinks per day Smoked in Last 30 Days: Yes Use of substances other than those prescribed or required for medical reasons: Refusing to respond Substance Use Type: Marijuana Advance Directives: No Advance Directives Information Provided: Yes Physical Exam ED Vital Signs: Vital Signs - 24 hr 03/31/25 23:11 Pulse Rate 80 Respiratory Rate 30 H Blood Pressure 124/77 Pulse Oximetry 100 Oxygen Delivery Method Room Air BMI result Body Mass Index 29.7 Const Other: The patient was awake but was holding his eyes closed and was talking in a histrionic manner. HENMT Other: There was no facial asymmetry. Mucous membranes were moist. The airway was clear. 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 Skin Other: Skin was pale and dry Neuro Other: The patient was awake and yelling that he had abdominal pain and that he could not breathe. He seemed excited and hysterical. Who was extremely loud. Pupils were round equal, extraocular movements seemed intact, face seems symmetrical, speech was not frankly slurred, he seemed to have symmetrical tone of his extremities. Overall his demeanor suggested possible intoxication but otherwise he did not seem to have any focal neurological deficit Extrem Other: There is no calf swelling or tenderness. No asymmetry. No peripheral edema. Medications Administered Discontinued Medications Generic Name Dose Route Start Last Admin Trade Name Freq PRN Reason Stop Dose Admin Diazepam 10 mg 03/31/25 23:20 03/31/25 23:41 Diazepam 10 Mg/2 Ml Cartridge IM 03/31/25 23:21 10 mg STAT STA Administration Sodium Chloride 1,000 mls @ 999 mls/hr 03/31/25 23:30 04/01/25 02:33 Ns IV 04/01/25 00:30 Infused .Q1H1M [place] Infusion Medical Decision Making Medical Decision Making [facility] Narrative: The patient is a 55-year-old male who was brought to the hospital by a friend. Apparently the friend had planned at meeting the patient had a use a club. The friend says that when she 1st arrived at the club to meet him he seemed well but that he seemed to have an abrupt change in his demeanor not long after they met. He had told the friend that he had had alcohol and had also taken some of his morphine pills. The friend thought that the patient was hyperventilating as he was complaining that he was having abdominal pain and that he could not breathe. She drove him directly to the emergency room. On arrival here the patient was quite histrionic and hysterical, extremely loud. My overall impression was that this might be some kind of panic attack. The patient has not been to this emergency room before. I reviewed records from [facility]. According to these records of the the patient had a cholecystectomy on 05/16/2024. Additionally the patient was seen in the emergency room on August 19 for abdominal pain. At that time he had a CT of the abdomen and pelvis that showed a mesenteric mass in the left upper abdomen suspicious for a carcinoid tumor. The patient had another emergency room visit for abdominal pain on August 31. He had a CT scan at that time that showed a similar mass without other acute findings. The patient tells me that he has been aware of his neuroendocrine tumor for about 5 years. He has a an oncologist. Currently his oncologist is Dr. Lin Simmons at [facility]. He says that he gets regular injections to help manage this tumor. He says it is nonoperable. The patient arrived extremely agitated and hysterical. He was given 10 mg of IV diazepam. This was very effective in calming him. He was given IV fluids. He has a an unremarkable EKG. Chest x-ray shows what I think is atelectasis rather than a more concerning process. He has a normal white blood count of 10.8. He has no left shift with his neutrophils. Slight lymphocytosis. Metabolic panel is unremarkable. C-reactive protein is normal. His alcohol level was 147. His lipase is normal. A D-dimer is undetectable. The patient has a normal initial troponin. I will send a 2nd troponin. Assuming this 2nd troponin is normal I think he can be discharged to follow up with his PCP. The 2nd troponin was negative and I felt he was safe for discharge. Lab Data 03/31/25 23:35 03/31/25 23:35 Labs: Lab Results 03/31/25 03/31/25 04/01/25 Range/Units 23:35 23:41 00:41 WBC 10.8 (4.8-10.8) X10*3/uL RBC 4.64 (4.60-5.80) X10*6/uL Hgb 14.0 (14.0-18.0) g/dl Hct 40.9 L (42.0-52.0) % MCV 88.1 (80.0-98.0) fL MCH 30.2 (27.0-33.0) pg MCHC 34.2 (31.0-36.0) g/dl RDW 12.8 (11.0-16.0) % Plt Count 283 (160-400) X10*3/uL MPV 10.6 (9.4-12.4) fL Immature Gran % (Auto) 0.7 H (0.0-0.4) % Neut % (Auto) 45.0 (45-73) % Lymph % (Auto) 44.9 H (20-40) % [place] % (Auto) 7.0 (2-11) % Eos % (Auto) 1.5 (0-4) % Baso % (Auto) 0.9 (0-2) % Lymph # (Auto) 4.8 (1.2-4.9) X10*3/uL [place] # (Auto) 0.8 (0.1-1.2) X10*3/uL Eos # (Auto) 0.2 (0.0-0.4) X10*3/uL Baso # (Auto) 0.1 (0.0-0.2) X10*3/uL Abs Immat Gran (auto) 0.08 H (0.00-0.03) X10*3/uL Absolute Neuts (auto) 4.9 (2.0-8.3) x10*3/uL Absolute Nucleated RBC 0.000 (0.0-0.012) X10*3/uL Nucleated RBC % (auto) 0.0 (0.0-0.2) /100WBC PT 10.9 (10.9-12.4) SEC INR 1.0 (0.9-1.1) D-Dimer High Sensitivty < 150 NG/ML VBG pH 7.53 H (7.32-7.43) VBG pCO2 24 mmHg VBG pO2 44 mmHg VBG HCO3 21 L (22-26) mmol/L VBG O2 Saturation 75.0 % VBG Base Excess 0.5 mmol/L Sodium 140 (135-145) mmol/L Potassium 3.7 (3.3-5.1) mmol/L Chloride 107 (96-108) mmol/L Carbon Dioxide 20 L (22-29) mmol/L Anion Gap 17 (12-20) BUN 13 (9-16) mg/dL Creatinine 1.14 (0.5-1.4) mg/dL Estim Creat Clear Calc 91.5 Estimated GFR > 60 Random Glucose 100 (60-115) mg/dL Calcium 9.4 (8.4-10.2) mg/dL Magnesium 2.2 (1.6-2.6) mg/dL Total Bilirubin 0.2 (0.0-1.0) mg/dL Direct Bilirubin < 0.2 (0.0-0.5) mg/dL AST 21 (5-37) U/L ALT 15 (0-40) U/L Alkaline Phosphatase 67 (39-117) U/L Troponin I High Sens < 2.7 (<3.5-35.0) ng/L C-Reactive Protein 0.23 (< or = 0.50) mg/dL Total Protein 7.4 (6.5-8.0) g/dL Albumin 4.7 (3.5-5.0) g/dL Lipase 20 (8-78) U/L Urine Color Yellow Urine Appearance Clear Urine pH 6.5 (5.0-9.0) Ur Specific [place] <= 1.005 (1.005-1.025) Urine Protein Negative (Neg-Trace) mg/dL Urine Glucose (UA) Negative (Negative) mg/dL Urine Ketones Negative (Negative) mg/dL Urine Blood Negative (Negative) Urine Nitrite Negative (Negative) Ur Leukocyte Esterase Negative (Negative) Urine Opiates Screen POSITIVE H (Not Detect) Ur Buprenorphine Scrn Not Detected (Not Detect) ng/mL Ur Oxycodone Screen Not Detected (Not Detect) ng/mL Urine Methadone Screen Not Detected (Not Detect) ng/mL Urine Fentanyl Screen Not Detected (Not Detect) Ur Barbiturates Screen Not Detected (Not Detect) Ur Phencyclidine Scrn Not Detected (Not Detect) Ur Amphetamines Screen Not Detected (Not Detect) U Benzodiazepines Scrn Not Detected (Not Detect) Urine Cocaine Screen Not Detected (Not Detect) U Marijuana (THC) Screen POSITIVE H (Not Detect) Ethyl Alcohol 147 mg/dL 04/01/25 Range/Units 01:45 WBC (4.8-10.8) X10*3/uL RBC (4.60-5.80) X10*6/uL Hgb (14.0-18.0) g/dl Hct (42.0-52.0) % MCV (80.0-98.0) fL MCH (27.0-33.0) pg MCHC (31.0-36.0) g/dl RDW (11.0-16.0) % Plt Count (160-400) X10*3/uL MPV (9.4-12.4) fL Immature Gran % (Auto) (0.0-0.4) % Neut % (Auto) (45-73) % Lymph % (Auto) (20-40) % [place] % (Auto) (2-11) % Eos % (Auto) (0-4) % Baso % (Auto) (0-2) % Lymph # (Auto) (1.2-4.9) X10*3/uL [place] # (Auto) (0.1-1.2) X10*3/uL Eos # (Auto) (0.0-0.4) X10*3/uL Baso # (Auto) (0.0-0.2) X10*3/uL Abs Immat Gran (auto) (0.00-0.03) X10*3/uL Absolute Neuts (auto) (2.0-8.3) x10*3/uL Absolute Nucleated RBC (0.0-0.012) X10*3/uL Nucleated RBC % (auto) (0.0-0.2) /100WBC PT (10.9-12.4) SEC INR (0.9-1.1) D-Dimer High Sensitivty NG/ML VBG pH (7.32-7.43) VBG pCO2 mmHg VBG pO2 mmHg VBG HCO3 (22-26) mmol/L VBG O2 Saturation % VBG Base Excess mmol/L Sodium (135-145) mmol/L Potassium (3.3-5.1) mmol/L Chloride (96-108) mmol/L Carbon Dioxide (22-29) mmol/L Anion Gap (12-20) BUN (9-16) mg/dL Creatinine (0.5-1.4) mg/dL Estim Creat Clear Calc Estimated GFR Random Glucose (60-115) mg/dL Calcium (8.4-10.2) mg/dL Magnesium (1.6-2.6) mg/dL Total Bilirubin (0.0-1.0) mg/dL Direct Bilirubin (0.0-0.5) mg/dL AST (5-37) U/L ALT (0-40) U/L Alkaline Phosphatase (39-117) U/L Troponin I High Sens < 2.7 (<3.5-35.0) ng/L C-Reactive Protein (< or = 0.50) mg/dL Total Protein (6.5-8.0) g/dL Albumin (3.5-5.0) g/dL Lipase (8-78) U/L Urine Color Urine Appearance Urine pH (5.0-9.0) Ur Specific [place] (1.005-1.025) Urine Protein (Neg-Trace) mg/dL Urine Glucose (UA) (Negative) mg/dL Urine Ketones (Negative) mg/dL Urine Blood (Negative) Urine Nitrite (Negative) Ur Leukocyte Esterase (Negative) Urine Opiates Screen (Not Detect) Ur Buprenorphine Scrn (Not Detect) ng/mL Ur Oxycodone Screen (Not Detect) ng/mL Urine Methadone Screen (Not Detect) ng/mL Urine Fentanyl Screen (Not Detect) Ur Barbiturates Screen (Not Detect) Ur Phencyclidine Scrn (Not Detect) Ur Amphetamines Screen (Not Detect) U Benzodiazepines Scrn (Not Detect) Urine Cocaine Screen (Not Detect) U Marijuana (THC) Screen (Not Detect) Ethyl Alcohol mg/dL Independent Interpretation I performed an independent interpretation of an: EKG Interpretation: EKG at 00:30 shows normal sinus rhythm at 67 beats per minute. It is a normal EKG. No old EKGs. Discharge Plan Discharge Clinical Impression: Shortness of breath, Vomiting Patient Disposition: Home, Self-Care Additional Instructions: Your testing in the emergency room today seems very reassuring. It is not entirely clear why you had the episode you had this evening. It may have been related to alcohol. Please continue all of your regular medications. Please follow up soon with your regular doctor to discuss this episode further. Return to the emergency department if significantly worse. Prescriptions: No Action dextroamphetamine-amphetamine 10 mg tablet 1 tab PO BID amlodipine 10 mg tablet 10 mg PO DAILY lisinopril 40 mg tablet 40 mg PO DAILY bupropion HCl 300 mg tablet extended release 24 hr 300 mg PO DAILY escitalopram oxalate 5 mg tablet 5 mg PO DAILY Referrals: [facility] [Provider Group, Family Practice] Interventions: ED Discharge Assessment Last Done: 04/01/25 03:18 Discharge Date/Time: 04/01/25 06:39 Print Language: German
[2025-03-31 23:40] LABS: MANUAL DIFF FLAG NO
[2025-03-31 23:41] LABS: Hematocrit 40.9 % (42.0-52.0); Hemoglobin 14.0 g/dl (14.0-18.0); Imm Gran Abs Auto 0.08 X10*3/uL (0.00-0.03); Imm Gran Pct Auto 0.7 % (0.0-0.4); Lymphocytes Absolute Auto 4.8 X10*3/uL (1.2-4.9); Mean Corpuscular HGB Conc 34.2 g/dl (31.0-36.0); Mean Corpuscular Hemoglobin 30.2 pg (27.0-33.0); Mean Corpuscular Volume 88.1 fL (80.0-98.0); NRBC Abs Auto 0.000 X10*3/uL (0.0-0.012); NRBC Pct Auto 0.0 /100WBC (0.0-0.2); Platelet Count 283 X10*3/uL (160-400); Red Blood Count 4.64 X10*6/uL (4.60-5.80); White Blood Count 10.8 X10*3/uL (4.8-10.8)
[2025-03-31] MEDS: diazePAM 10 MG/2 ML CARTRIDGE IM (23:41)
[2025-03-31 23:45] LABS: Venous Blood Gas Refer to POC result
[2025-03-31 23:46] LABS: VBG HCO3 21 mmol/L (22-26); VBG O2 % Saturation 75.0 %
[2025-03-31 23:47] LABS: INTERNATIONAL NORM RATIO 1.0 (0.9-1.1); Prothrombin Time 10.9 SEC (10.9-12.4)
[2025-04-01 00:10] LABS: Troponin-I High Sensitivity < 2.7 ng/L (<3.5-35.0)
[2025-04-01 00:11] LABS: Alanine Aminotransferase 15 U/L (0-40); Albumin Level 4.7 g/dL (3.5-5.0); Alkaline Phosphatase 67 U/L (39-117); Anion Gap 17 (12-20); Aspartate Amino Transferase 21 U/L (5-37); Blood Urea Nitrogen 13 mg/dL (9-16); Calcium 9.4 mg/dL (8.4-10.2); Carbon Dioxide 20 mmol/L (22-29); Chloride 107 mmol/L (96-108); Creatinine Clr Calc Pharmacy 91.5; Estimated Glomerular Filt Rate > 60; Lipase 20 U/L (8-78); Magnesium 2.2 mg/dL (1.6-2.6); Potassium 3.7 mmol/L (3.3-5.1); Sodium 140 mmol/L (135-145); Total Protein 7.4 g/dL (6.5-8.0)
--- NOTE | 2025-04-01 00:15 | ECG_ITS ---
Test Reason : SOB Blood Pressure : */* mmHG Vent. Rate : 67 BPM Atrial Rate : 67 BPM P-R Int : 166 ms QRS Dur : 100 ms QT Int : 416 ms P-R-T Axes : 69 43 35 degrees QTcB Int : 439 ms Normal sinus rhythm Normal ECG No previous ECGs available Referred By: Ian Guidry Electronically Signed By: SHANEKA HORTON
[2025-04-01 00:47] LABS: Appearance Urine Clear; Glucose Urine UA Negative (Negative); PH 6.5 (5.0-9.0); Specific Gravity - Urine <= 1.005 (1.005-1.025)
[2025-04-01 00:57] LABS: Cannabinoid Screen Urine POSITIVE (Not Detect)
[2025-04-01 01:33] LABS: D Dimer High Sensitivity < 150 NG/ML
--- OUTSIDE RECORDS SUMMARY | 2025-04-01 01:38 | XMS_ITS | Clinical Summary ---
Author Organization [facility] it Address [address] [place] [address] Care Team Providers Care Medical Office Coordinator Name Role Phone Unavailable Primary Care Provider Unavailabl e Medical History Medical History Date Comments Cancer (CMS/HCC V24, CMS/HCC V28) DX:Cancer (HCC) Hypertension DX:Hypertension Social History Tobacco Use Types Packs/Day Years Used Date Smoking Tobacco: Every Day Smokeless Tobacco: Never Alcohol Use Standard Drinks/Week Comments Yes 0 (1 standard drink = 0.6 oz pur e alcohol) Sex and Gender Information Value Date Recorded Sex Assigned at Not on file Legal Sex Male 11:07 PM EST Gender Identity Not on file Sexual Orientation Not on file Obstetrics History Plan of Treatment Health Maintenance Due Date Last Done Comments DTaP,Tdap,and Td Vaccines (1 - Tdap) 1991 Hepatitis B Vaccines (1 of 3 - 19+ 3-dose series) 1991 Pneumococcal Vaccine: 50+ Ye ars (1 of 1 - PCV) 2022 Zoster Vaccines (1 of 2) 2022 Depression Screening 06/04/2024 COVID-19 Vaccine (1 - 2023-2 5 season) 2025 Influenza Vaccine (#1) 2025 RSV Immunization Adult Patie nts (1 - 1-dose 75+ series) 2047 HIB Vaccines Aged Out No longer eligi ble based on patient's age to complete this topic HPV Vaccines Aged Out No longer eligi ble based on patient's age to complete this topic Hepatitis A Vaccines Aged Out No long er eligible based on patient's age to complete this topic IPV Vaccines Aged Out No longer eligi ble based on patient's age to complete this topic MMR Vaccines Aged Out No longer eligi ble based on patient's age to complete this topic Meningococcal ACWY Vaccine Aged Out N o longer eligible based on patient's age to complete this topic Meningococcal B Vaccine Aged Out No l onger eligible based on patient's age to complete this topic RSV Immunization Patients Un robert 20 months Aged Out No longer eligible b ased on patient's age to complete this topic Varicella Vaccines Aged Out No longer eligible based on patient's age to complete this topic
--- OUTSIDE RECORDS SUMMARY | 2025-04-01 01:38 | XMS_ITS ---
Author Organization [facility] Address [address] [place] [id number] Phone Care Team Providers Care Rigger Helper Name Role Phone Lana Simmons MD Unavailable [phone] Stormy Valdovinos Primary Care Provider Active Problems Patient Care Coordination No te Formatting of this note migh t be different from the original. Height 182.3cm no shoes 09/2023 Problem Noted Date Diagnosed Date HTN (hypertension) 11/08/2024 Assessment & Plan (11/08/2024 4:58 PM EDT): - Blood pressure is currently controlled, continue Norvasc and lisinopril Functional diarrhea 04/22/2018 Neuroendocrine carcinoma 03/28/2018 Assessment & Plan (11/08/2024 4:58 PM EDT): - Patient follows with Dr. Simmons at the cancer center and is on monthly octreotide Assessment & Plan (12/25/2019 3:11 PM EDT): Patient continues to tolerate treatment well; he is cleared today for treatment. He will be due for rescanning in Feb 2020. We will see him thereafter. Mesenteric mass 03/19/2018 Assessment & Plan (03/20/2018 6:42 AM EDT): I had a lengthy discussion with the patient regarding his mesenteric mass. We went over his CT images. I explained where the mesentery is and possibilities for the nature of the mass. He will be sent to Interventional Radiology for a CT guided needle biopsy. This has already been discussed with IR. Current Treatment and Therapy Plans OCTREOTIDE (SANDOSTATIN LAR )* Plan Start Date:05/03/2018 Plan Provider:Lana Simmons MD Linked Problems Neuroendocrine carcinoma Treatment Medications No medications scheduled. Past Treatment and Therapy Plans No past plan information found. Resolved Problems Problem Noted Date Diagnosed Date Resolved Date Generalized abdominal pain 11/08/2024 0 11/09/2024 Assessment & Plan (11/08/2024 4:58 PM EDT): -Patient has had recurrent episodes of nausea, vomiting, abdominal pain and has been seen in multiple ED's for this over the years -Labs today show no electrolyte abnormalities but do show leukocytosis of 15.07 -CRP only 3.9 -Follow-up CT abdomen/pelvis -Continue symptomatic care -Clear liquid diet for now -IVF -If symptoms are not improving consider GI consult Periumbilical abdominal pain 04/22/2018 04/04/2021
--- OUTSIDE RECORDS SUMMARY | 2025-04-01 01:38 | XMS_ITS | Encounter Summary ---
Author Organization [facility] Address [address] [facility] [address] [place] [address] Phone Care Team Providers Care Dairy Clerk Name Role Phone Everett Carter Primary Care Provider [phone] Everton Nation MD Unavailable + Sarah Reagan MD Unavailable Royce Gr MD Unavailable Stormy Valdovinos Primary Care Provider [phone] Elver Gomez MD Unavailable [phone] Royce Gr MD Unavailable Lana Simmons MD Unavailable Sarah Reagan MD Unavailable Elver Gomez MD Unavailable [phone] Cordelia Hernandez FINANCIAL ACCOUNTING MANAGER Unavailable Lana Simmons MD Unavailable Royce Gr MD Primary Care Provider [phone] Pamela Gaviria RN Unavailable Stormy Valdovinos Primary Care Provider [phone] Encounter Details Date Type Department Care Team (Late st Contact Info) Description 04/15/2020 Procedure Pass [facility], Ct Scan - [address] [address] Social History Tobacco Use Types Packs/Day Years Used Date Smoking Tobacco: Every Day Cigarettes 0.5 30 Smokeless Tobacco: Never Alcohol Use Standard Drinks/Week Comments Not Currently 6 (1 standard drink = 0.6 oz pur e alcohol) per week Sex and Gender Information Value Date Recorded Sex Assigned at Male 03/23/2018 3:07 PM EDT Legal Sex Male 9:32 PM EDT Gender Identity Male 03/23/2018 3:07 PM EDT Sexual Orientation Straight 09/08/2018 9: 13 AM EDT documented as of this encounter Plan of Treatment Upcoming Encounters Date Type Department Care Team (Late st Contact Info) Description 04/22/2025 2:50 PM EST Appointment [facility] [address] [place] [address] Lana Simmons MD [address] [place] [address] 04/22/2025 4:00 PM EST Infusion [facility] 30 [place] [address] Lana Simmons MD [address] [place] [address] [email or web address] documented as of this encounter Visit Diagnoses Not on filedocumented in this encounter Care Teams Dairy Clerk Relationship Specialty Start Date End Date Everett Carter PA [address] [place] [address] [email or web address] PCP - General Unknown Provider Specialty 04/09/18 11/29/20 Stormy Valdovinos PA [address] [place] [address] PCP - General 11/30/20 05/08/23 Royce Gr MD [address] [place] [address] [email or web address] PCP - General Family Medicine 05/09/23 03/20/24 Stormy Valdovinos PA [address] [place] [address] PCP - General Physician Physical Education Department Chair 03/21/24 Everton Nation MD [address] [place] [address] [email or web address] Insurance Assigned Provider 09/07/18 05/09/20 Sarah Reagan MD [address] [place] [address] [email or web address] Primary Oncologist Hematology and Oncology 03/31/20 06/26/21 Royce Gr MD [address] [place] [address] [email or web address] Insurance Assigned Provider 05/09/20 02/12/21 Elver Gomez MD [address] [place] [address] [email or web address] Insurance Assigned Provider 02/12/21 07/10/21 Royce Gr MD [address] [place] [address] [email or web address] Insurance Assigned Provider 07/10/21 02/11/22 Lana Simmons MD [address] [place] [address] Primary Oncologist Medical Oncology 07/22/21 02/13/22 Sarah Reagan MD [address] [place] [address] [email or web address] Historical LMR Provider Hematology and Oncology 07/22/21 05/14/22 Elver Gomez MD [address] [place] [address] Insurance Assigned Provider 02/11/22 07/08/22 Cordelia Hernandez NP [address] [place] [address] Nurse Practitioner Medical Oncology 02/14/22 08/12/24 Lana Simmons MD 30 [place] [address] Primary Oncologist Medical Oncology 02/14/22 Pamela Gaviria RN [address] [place] [address] PHCM Electrical Logger 06/19/23 06/28/23 documented as of this encounter Additional Source Comments The information contained in this document represents components of the legal health record. It is not the complete legal health record.[facility]
--- OUTSIDE RECORDS SUMMARY | 2025-04-01 01:38 | XMS_ITS | Encounter Summary ---
Author Organization [facility] Address [address] [place] [address] Phone Care Team Providers Care Housing And Residence Life Director Name Role Phone Pcp, Not Required Primary Care Provider Unavaila Everett Pham Primary Care Provider Everton Nation MD Unavailable + Sarah Reagan MD Unavailable Royce Gr MD Unavailable [phone] Stormy Valdovinos Primary Care Provider [phone] Elver Gomez MD Unavailable [phone] Royce Gr MD Unavailable [phone] Lana Simmons MD Unavailable Sarah Reagan MD Unavailable Elver Gomez MD Unavailable [phone] Cordelia Hernandez NP Unavailable [phone] Lana Simmons MD Unavailable Royce Gr MD Primary Care Provider [phone] Pamela Gaviria RN Unavailable Stormy Valdovinos Primary Care Provider [phone] Encounter Details Date Type Department Care Team (Late st Contact Info) Description 04/08/2018 Procedure Pass [facility] Admitting Dept Virtual Department 30 [place] [address] Social History Tobacco Use Types Packs/Day Years Used Date Smoking Tobacco: Every Day Cigarettes 1 30 Smokeless Tobacco: Never Alcohol Use Standard Drinks/Week Comments Yes 6 (1 standard drink = 0.6 oz [...] 04/22/2025 2:50 PM EST Appointment [facility] [address] [place] [address] Lana Simmons MD [address] [place] [address] [email or web address] 04/22/2025 4:00 PM EST Infusion [facility] 30 [place] [address] Lana Simmons MD [address] [place] [address] [email or web address] documented as of this encounter Visit Diagnoses Not on filedocumented in this encounter Care Teams Housing And Residence Life Director Relationship Specialty Start Date End Date Pcp, Not Required [address] [place] [address] PCP - General 03/23/18 04/08/18 Everett Carter PA [address] [place] [address] [email or web address] PCP - General Unknown Provider Specialty 04/09/18 11/29/20 Stormy Valdovinos PA [address] [place] [address] PCP - General 11/30/20 05/08/23 Royce Gr MD [address] [place] [address] [email or web address] PCP - General Family Medicine 05/09/23 03/20/24 Stormy Valdovinos PA [address] [place] [address] PCP - General Physician Civil Lawyer 03/21/24 Everton Nation MD [address] [place] [address] [email or web address] Insurance Assigned Provider 09/07/18 05/09/20 Sarah Reagan MD [address] [place] [address] [email or web address] Primary Oncologist Hematology and Oncology 03/31/20 06/26/21 Royce Gr MD [address] [place] [address] [email or web address] Insurance Assigned Provider 05/09/20 02/12/21 Elver Gomez MD [address] [place] [address] [email or web address] Insurance Assigned Provider 02/12/21 07/10/21 Royce Gr MD [address] [place] [address] [email or web address] Insurance Assigned Provider 07/10/21 02/11/22 Lana Simmons MD 30 [place] [address] Primary Oncologist Medical Oncology 07/22/21 02/13/22 Sarah Reagan MD [address] [place] [address] [email or web address] Historical LMR Provider Hematology and Oncology 07/22/21 05/14/22 Elver Gomez MD [address] [place] [address] Insurance Assigned Provider 02/11/22 07/08/22 Cordelia Hernandez NP [address] [place] [address] Nurse Practitioner Medical Oncology 02/14/22 08/12/24 Lana Simmons MD 30 [place] [address] [email or web address] Primary Oncologist Medical Oncology 02/14/22 Pamela Gaviria, VIJAY 10 [place] [address] PHCM Microchip Specialist 06/19/23 06/28/23 documented as of this encounter Additional Source Comments The information contained in this document represents components of the legal health record. It is not the complete legal health record.[facility]
--- OUTSIDE RECORDS SUMMARY | 2025-04-01 01:38 | XMS_ITS | Encounter Summary ---
Author Organization [facility] Address [address] [facility] [address] [place] [address] Phone Care Team Providers Care Electrical Systems Designer Name Role Phone Cordelia Hernandez WETLANDS TECHNICIAN Unavailable [phone] Lana Simmons MD Unavailable [phone] Royce Gr MD Primary Care Provider [phone] Stormy Valdovinos Primary Care Provider Encounter Details Date Type Department Care Team (Late st Contact Info) Description 08/11/2023 Procedure Pass [facility], Ct Scan - [address] [address] Social History Tobacco Use Types Packs/Day Years Used Date Smoking Tobacco: Every Day Cigarettes 0.5 30 Smokeless Tobacco: Never Alcohol Use Standard Drinks/Week Comments Yes 6 (1 standard drink = 0.6 oz pur e alcohol) Education Answer Date Recorded Are you interested in more education? Not on eliazar e 09/29/2022 Are you concerned about learning? Not on file 09/29/2022 No 09/29/2022 No 09/29/2022 Digital Access Answer Date Recorded No 10/24/2022 No 10/24/2022 Reliable internet access at home? Not on file 10/24/2022 Device with a working camera? Not on file Sex and Gender Information Value Date Recorded Sex Assigned at Male 03/23/2018 3:07 PM EDT Legal Sex Male 9:32 PM EDT Gender Identity Male 03/23/2018 3:07 PM EDT Sexual Orientation Straight 09/08/2018 9: 13 AM EDT documented as of this encounter Functional Status * Calculated C-SSRS Risk Score (Lifetime/Recent) Answer Date of Assessment Author No Risk Indicated 08/11/2023 10:18 AM Jenn Ayala RN * [place] Suicide Severity Rating Scale (Screener/Recent Self-Report) Question Answer Date of Assessment Author 1. Wish to be (Past 1 Month) No 024 10:18 AM Jenn De La Cruz RN 2. Non-Specific Active Suici jazmin Thoughts (Past 1 Month) No 08/11/2023 10:18 AM Abdoulaye De La Cruz RN 6. Suicidal Behavior (Lifetime) No 10:18 AM Jenn De La Cruz RN documented as of this encounter Plan of Treatment Upcoming Encounters Date Type Department Care Team (Late st Contact Info) Description 04/22/2025 2:50 PM EST Appointment [facility] [address] [place] [address] Lana Simmons MD [address] [place] [address] 04/22/2025 4:00 PM EST Infusion [facility] 30 [place] [address] Lana Simmons MD [address] [place] [address] documented as of this encounter Visit Diagnoses Not on filedocumented in this encounter Care Teams Electrical Systems Designer Relationship Specialty Start Date End Date Royce Gr MD [address] [place] [address] PCP - General Family Medicine 05/09/23 03/20/24 Stormy Valdovinos PA [address] [place] [address] PCP - General Physician Financial Quantitative Analyst 03/21/24 Cordelia Hernandez NP [address] [place] [address] [email or web address] Nurse Practitioner Medical Oncology 02/14/22 08/12/24 Lana Simmons MD [address] [place] [address] [email or web address] Primary Oncologist Medical Oncology 02/14/22 documented as of this encounter Additional Source Comments The information contained in this document represents components of the legal health record. It is not the complete legal health record.[facility]
--- OUTSIDE RECORDS SUMMARY | 2025-04-01 01:38 | XMS_ITS | Encounter Summary ---
Author Organization [facility] Address [address] [facility] [address] [place] [address] Phone Care Team Providers Care Bankruptcy Legal Assistant Name Role Phone Cordelia Hernandez WATER FABRICATOR OPERATOR Unavailable [phone] Lana Simmons MD Unavailable [phone] Royce Gr MD Primary Care Provider [phone] Stormy Valdovinos Primary Care Provider Encounter Details Date Type Department Care Team (Late st Contact Info) Description 08/11/2023 Procedure Pass [facility], Ct Scan - [address] [address] Social History Tobacco Use Types Packs/Day Years [...] 08/11/2023 10:18 AM Jenn Ayala RN * [place] Suicide Severity Rating Scale (Screener/Recent Self-Report) Question [...] 04/22/2025 2:50 PM EST Appointment [facility] [address] [place] [address] Lana Simmons MD [address] [place] [address] 04/22/2025 4:00 PM EST Infusion [facility] 30 [place] [address] Lana Simmons MD [address] [place] [address] documented as of this encounter Visit Diagnoses Not on filedocumented in this encounter Care Teams Bankruptcy Legal Assistant Relationship Specialty Start Date End Date Royce Gr MD [address] [place] [address] PCP - General Family Medicine 05/09/23 03/20/24 Stormy Valdovinos PA [address] [place] [address] PCP - General Physician Chemical Project Engineer 03/21/24 Cordelia Hernandez NP [address] [place] [address] [email or web address] Nurse Practitioner Medical Oncology 02/14/22 08/12/24 Lana Simmons MD [address] [place] [address] [email or web address] Primary Oncologist Medical Oncology 02/14/22 documented as of this encounter Additional Source Comments The information contained in this document represents components of the legal health record. It is not the complete legal health record.[facility]
--- OUTSIDE RECORDS SUMMARY | 2025-04-01 01:38 | XMS_ITS | Encounter Summary ---
Author Organization [facility] Address [address] [address] Phone Care Team Providers Care Data Processing Specialist Name Role Phone Sarah Reagan MD Unavailable Stormy Valdovinos Primary Care Provider [phone] Elver Gomez MD Unavailable [phone] Royce Gr MD Unavailable [phone] Lana Simmons MD Unavailable [phone] Sarah Reagan MD Unavailable Elver Gomez MD Unavailable [phone] Cordelia Hernandez NP Unavailable [phone] Lana Simmons MD Unavailable [phone] Royce Gr MD Primary Care Provider [phone] Pamela Gaviria RN Unavailable Stormy Valdovinos Primary Care Provider [phone] Encounter Details Date Type Department Care Team (Late st Contact Info) Description 06/24/2021 Procedure Pass [facility], Ct Scan - [address] [address] Social History Tobacco Use Types Packs/Day Years Used Date Smoking Tobacco: Every Day Cigarettes 0.5 30 Smokeless Tobacco: Never Alcohol Use Standard Drinks/Week Comments Yes 6 (1 standard drink = 0.6 oz pur e alcohol) social Sex and Gender Information Value Date Recorded Sex Assigned at Male 03/23/2018 3:07 PM EDT Legal Sex Male 9:32 PM EDT Gender Identity Male 03/23/2018 3:07 PM EDT Sexual Orientation Straight 09/08/2018 9: 13 AM EDT documented as of this encounter Functional Status * Calculated C-SSRS Risk Score (Lifetime/Recent) Answer Date of Assessment Author No Risk Indicated 06/24/2021 12:40 PM EST Postem Kayley ayala RN * Tiger Suicide Severity Rating Scale (Screener/Recent Self-Report) Question Answer Date of Assessment Author 1. Wish to be (Past 1 Month) No 06/24/2021 12:40 PM EST Kayley Malik RN 2. Non-Specific Active Suicidal Thoughts (Past 1 Month) No 06/24/2021 12:40 PM EST Kayley Malik RN 6. Suicidal Behavior (Lifetime) No 06/24/2021 12:40 PM EST Kayley Malik RN documented as of this encounter Plan of Treatment Upcoming Encounters Date Type Department Care Team (Late st Contact Info) Description 04/22/2025 2:50 PM EST Appointment [facility] [address] [place] [address] Lana Simmons MD [address] [place] [address] 04/22/2025 4:00 PM EST Infusion [facility] 30 [place] [address] Lana Simmons MD [address] [place] [address] documented as of this encounter Visit Diagnoses Not on filedocumented in this encounter Care Teams Data Processing Specialist Relationship Specialty Start Date End Date Stormy Valdovinos PA [address] [place] [address] PCP - General 11/30/20 05/08/23 Royce Gr MD [address] [place] [address] [email or web address] PCP - General Family Medicine 05/09/23 03/20/24 Stormy Valdovinos PA [address] [place] [address] PCP - General Physician Perpetual Inventory Clerk 03/21/24 Sarah Reagan MD [address] [place] [address] [email or web address] Primary Oncologist Hematology and Oncology 03/31/20 06/26/21 Elver Gomez MD [address] [place] [address] [email or web address] Insurance Assigned Provider 02/12/21 07/10/21 Royce Gr MD [address] [place] [address] [email or web address] Insurance Assigned Provider 07/10/21 02/11/22 Lana Simmons MD [address] [place] [address] [email or web address] Primary Oncologist Medical Oncology 07/22/21 02/13/22 Sarah Reagan MD [address] [place] [address] [email or web address] Historical LMR Provider Hematology and Oncology 07/22/21 05/14/22 Elver Gomez MD [address] [place] [address] [email or web address] Insurance Assigned Provider 02/11/22 07/08/22 Cordelia Hernandez NP [address] [place] [address] [email or web address] Nurse Practitioner Medical Oncology 02/14/22 08/12/24 Lana Simmons MD 30 [place] [address] [email or web address] Primary Oncologist Medical Oncology 02/14/22 Pamela Gaviria, VIJAY 10 [place] [address] PHCM [place] 06/19/23 06/28/23 documented as of this encounter Additional Source Comments The information contained in this document represents components of the legal health record. It is not the complete legal health record.[facility]
--- OUTSIDE RECORDS SUMMARY | 2025-04-01 01:38 | XMS_ITS | Encounter Summary ---
Author Organization [facility] Address [address] [place] [address] [place] [address] Phone Care Team Providers Care Aircraft Communicator Name Role Phone Everett Carter Primary Care Provider [phone] Everton Nation MD Unavailable + Sarah Reagan MD Unavailable Royce Gr MD Unavailable [phone] Stormy Valdovinos Primary Care Provider [phone] Elver Gomez MD Unavailable [phone] Royce Gr MD Unavailable [phone] Lana Simmons MD Unavailable [phone] Sarah Reagan MD Unavailable Elver Gomez MD Unavailable [phone] Cordelia Hernandez ELECTRICAL ENGINEERING TEACHER Unavailable [phone] Lana Simmons MD Unavailable [phone] Royce Gr MD Primary Care Provider [phone] Pamela Gaviria RN Unavailable Stormy Valdovinos Primary Care Provider [phone] Encounter Details Date Type Department Care Team (Latest Contact Info) Description 11/01/2018 Transcribe Orders [facility] Laboratory [address] [place] [address] Ange Naqvi DO 30 [place] [address] [email or web address] Screening for unspecified condition (Primary Dx) Social History Tobacco Use Types Packs/Day Years Used Date Smoking Tobacco: Former Cigarettes 1 30 Smokeless Tobacco: Never Comments:Started Patches Alcohol Use Standard Drinks/Week Comments Yes 6 [...] 04/22/2025 2:50 PM EST Appointment [facility] [address] [place] [address] Lana Simmons MD [address] [place] [address] [email or web address] 04/22/2025 4:00 PM EST Infusion [facility] at [address] [address] Lana Simmons MD [address] [place] [address] [email or web address] documented as of this encounter Visit Diagnoses Diagnosis Screening for unspecified condition- Primary documented in this encounter Care Teams Aircraft Communicator Relationship Specialty Start Date End Date Everett Carter PA [address] [place] [address] [email or web address] PCP - General Unknown Provider Specialty 04/09/18 11/29/20 Stormy Valdovinos PA [address] [place] [address] PCP - General 11/30/20 05/08/23 Royce Gr MD [address] [place] [address] [email or web address] PCP - General Family Medicine 05/09/23 03/20/24 Stormy Valdovinos PA [address] [place] [address] PCP - General Physician Hygiene Teacher 03/21/24 Everton Nation MD [address] [place] [address] [email or web address] Insurance Assigned Provider 09/07/18 05/09/20 Sarah Reagan MD [address] [place] [address] [email or web address] Primary Oncologist Hematology and Oncology 03/31/20 06/26/21 Royce Gr MD [address] [place] [address] [email or web address] Insurance Assigned Provider 05/09/20 02/12/21 Elver Gomez MD [address] [place] [address] [email or web address] Insurance Assigned Provider 02/12/21 07/10/21 Royce Gr MD [address] [place] [address] Insurance Assigned Provider 07/10/21 02/11/22 Lana Simmons MD 30 [place] [address] Primary Oncologist Medical Oncology 07/22/21 02/13/22 Sarah Reagan MD [address] [place] [address] [email or web address] Historical LMR Provider Hematology and Oncology 07/22/21 05/14/22 Elver Gomez MD [address] [place] [address] Insurance Assigned Provider 02/11/22 07/08/22 Cordelia Hernandez NP [address] [place] [address] Nurse Practitioner Medical Oncology 02/14/22 08/12/24 Lana Simmons MD 30 [place] [address] Primary Oncologist Medical Oncology 02/14/22 Pamela Gaviria, VIJAY [address] [place] [address] PHCM Bottle Tester 06/19/23 06/28/23 documented as of this encounter Additional Source Comments The information contained in this document represents components of the legal health record. It is not the complete legal health record.[facility]
--- OUTSIDE RECORDS SUMMARY | 2025-04-01 01:38 | XMS_ITS | Encounter Summary ---
Author Organization [facility] Address [address] [address] Phone Care Team Providers Care Inspector Aide Name Role Phone Unknown, Unknown Primary Care Provider Cheli wheeler Pcp, Not Required Primary Care Provider Unavaila Everett Pham Primary Care Provider [phone] Everton Nation MD Unavailable + Sarah Reagan MD Unavailable Royce Gr MD Unavailable [phone] Stormy Valdovinos Primary Care Provider +- Elver Gomez MD Unavailable [phone] Royce Gr MD Unavailable [phone] Lana Simmons MD Unavailable [phone] Sarah Reagan MD Unavailable Elver Gomez MD Unavailable [phone] Cordelia Hernandez NP Unavailable [phone] Lana Simmons MD Unavailable [phone] Royce Gr MD Primary Care Provider [phone] Pamela Gaviria RN Unavailable Stormy Valdovinos Primary Care Provider [phone] Encounter Details Date Type Department Care Team (Late st Contact Info) Description 03/15/2018 Procedure Pass [facility], Ct Scan - [address] [address] Social History Tobacco Use Types Packs/Day Years Used Date Smoking Tobacco: Every Day Alcohol Use Standard Drinks/Week Comments Yes 0 [...] 04/22/2025 2:50 PM EST Appointment [facility] [address] [place] [address] Lana Simmons MD [address] [place] [address] [email or web address] 04/22/2025 4:00 PM EST Infusion [facility] at [address] [address] Lana Simmons MD [address] [place] [address] [email or web address] documented as of this encounter Visit Diagnoses Not on filedocumented in this encounter Care Teams Inspector Aide Relationship Specialty Start Date End Date Unknown, Unknown, PCP - General 03/15/18 03/22/18 Pcp, Not Required [address] [place] [phone] PCP - General 03/23/18 04/08/18 Everett Carter PA [address] [place] [phone] [email or web address] PCP - General Unknown Provider Specialty 04/09/18 11/29/20 Stormy Valdovinos PA [address] [place] [address] PCP - General 11/30/20 05/08/23 Royce Gr MD [address] [place] [address] [email or web address] PCP - General Family Medicine 05/09/23 03/20/24 Stormy Valdovinos PA [address] [place] [phone] PCP - General Physician Machine Design Engineer 03/21/24 Everton Nation MD [address] [place] [address] [email or web address] Insurance Assigned Provider 09/07/18 05/09/20 Sarah Reagan MD [address] [place] [address] [email or web address] Primary Oncologist Hematology and Oncology 03/31/20 06/26/21 Royce Gr MD [address] [place] [address] [email or web address] Insurance Assigned Provider 05/09/20 02/12/21 Elver Gomez MD [address] [place] [address] [email or web address] Insurance Assigned Provider 02/12/21 07/10/21 Royce Gr MD [address] [place] [phone] Insurance Assigned Provider 07/10/21 02/11/22 Lana Simmons MD [address] [place] [address] Primary Oncologist Medical Oncology 07/22/21 02/13/22 Sarah Reagan MD [address] [place] [address] [email or web address] Historical LMR Provider Hematology and Oncology 07/22/21 05/14/22 Elver Gomez MD [address] [place] [phone] Insurance Assigned Provider 02/11/22 07/08/22 Cordelia Hernandez NP [address] [place] [address] Nurse Practitioner Medical Oncology 02/14/22 08/12/24 Lana Simmons MD [address] [place] [address] Primary Oncologist Medical Oncology 02/14/22 Pamela Gaviria, RN [address] [place] [address] PHCM Housing Case Manager 06/19/23 06/28/23 documented as of this encounter Additional Source Comments The information contained in this document represents components of the legal health record. It is not the complete legal health record.[facility]
--- OUTSIDE RECORDS SUMMARY | 2025-04-01 01:38 | XMS_ITS | Clinical Summary ---
Author Organization [facility] Address [address] [facility] [address] [place] [address] Phone Care Team Providers Care Time Lock Expert Name Role Phone Lana Simmons MD Unavailable [phone] Stormy Valdovinos Primary Care Provider [phone] Allergies Active Allergy Reactions Criticality Noted Date Comments Ketamine Other (See Comments),Hallucinations High 11/08/2024 disorientation Medications octreotide (SANDOSTATIN) 200 mcg/mL Soln every 30 (thirty) days. Active amLODIPine (NORVASC) 10 MG tablet Take 10 mg by mouth daily. 1 Active buPROPion (WELLBUTRIN XL) 300 MG ER 24 hr tablet Take 300 mg by mouth daily. 2 Active escitalopram oxalate (LEXAPRO) 5 MG tablet Take 5 mg by mouth daily. 2 Active lisinopril (PRINIVIL,ZESTRIL) 40 MG tablet Take 40 mg by mouth daily. 2 Active dextroamphetamine-a mphetamine (ADDERALL) 10 mg Tab tablet Take 1 tablet by mouth 2 (two) times a day. 3 Active ondansetron (ZOFRAN-ODT) 8 MG disintegrating tablet Take 1 tablet (8 mg total) by mouth every 8 (eight) hours as needed for nausea. 21 tablet 1 5 Active morphine (MSIR) 15 MG tablet Take 1 tab po q 4-6 hours prn pain flare-up, nte 3 tabs/day. PalliativeC are-partial fill ok 21 tablet 5 Active Active Problems Patient Care Coordination No te [...] This has already been discussed with IR. Resolved Problems Problem Noted Date Diagnosed Date [...] GI consult Periumbilical abdominal pain 04/22/2018 04/04/2021 Encounters Date Type Department Care Team Description 03/25/2025 3:20 PM EDT Infusion [facility] at [address] [address] Lana Simmons MD Brumbaugh, Benjamin, RN Neuroendocrine carcinoma (Primary Dx) 03/25/2025 2:30 PM EDT Office Visit [facility] at [address] [address] Lana Simmons MD Neuroendocrine carcinoma (Primary Dx); Mesenteric mass 03/25/2025 1:20 PM EDT - 03/25/2025 11:59 PM EDT Hospital Encounter [facility] [address] [place] [place] [address] Lana Simmons MD Discharge Disposition: Home or Self Care 03/02/2025 [facility] GENERATED External System Generated Encounter [address] [place] [address] Unknown, Unknown, MD 02/26/2025 3:20 PM EDT Infusion [facility] at [address] [address] Lana Simmons MD Romero Losada, Martha Katherine, VIJAY Neuroendocrine carcinoma (Primary Dx) 02/25/2025 Refill [facility] [place] at [address] [address] Susi Christy, licensed investment sales assistant Refill 02/25/2025 Telephone [facility] at [address] [address] Lana Simmons MD Appt R/s 02/09/2025 2:30 PM EDT Office Visit [facility] [address] [place] [place] [address] Aguilar Hu MD Palliative care encounter (Primary Dx); Cancer related pain; Use of opiates for therapeutic purposes; Neuroendocrine carcinoma 01/29/2025 Orders Only [facility] [address] [place] [place] [address] Aguilar Hu MD 01/29/2025 Telephone [facility] [place] at [address] [address] Susi Crhisty, licensed investment sales assistant Refill 01/28/2025 2:40 PM EDT Infusion [facility] at [facility] [address] [place] [address] Lana Simmons MD Robertson, Carolyn Ann, VIJAY Neuroendocrine carcinoma (Primary Dx) 01/28/2025 1:28 PM EDT - 01/28/2025 11:59 PM EDT Hospital Encounter [facility] [address] [place] [address] Lana Simmons MD Discharge Disposition: Home or Self Care 12/31/2024 3:20 PM EDT Infusion [facility] at [facility] [address] [place] [address] Lana Simmons MD Gleason, Aileen Marie, VIJAY Neuroendocrine carcinoma (Primary Dx) from Last 3 Months Immunizations Immunization Administration Dates Next Due COVID-19 (Pre-03/26) Pfizer Vaccine, mRNA, PF ,08/21/2020 Tdap 10/01/2023 Social History Tobacco Use Types Packs/Day Years Used Date Smoking Tobacco: Former Cigarettes 0.5 30 Smokeless Tobacco: Never Tobacco Cessation:Counseling Given: Not Answered Alcohol Use Standard Drinks/Week Comments Not Currently 6 (1 standard drink = 0.6 oz pur e alcohol) Education Answer Date Recorded Are you interested in more education? Not on eliazar e 09/29/2022 Are you concerned about learning? Not on file 09/29/2022 No 09/29/2022 No 09/29/2022 Food Answer Date Recorded Within the past 6 months we worried whether our food would run out before we got money to buy more. Never True 11/08/2024 Within the past 6 months the food we bought just didn't last and we didn't have enough money to get more. Never True Residential Stability Answer Date Recor ded What is your housing situation today? I have lyudmila sing 11/08/2024 How many times have you move d in the past 12 months? Zero (I did not move) 11/08/2024 Paying for Meds Answer Date Recorded Do you have trouble paying for medicines? No 11/08/2024 Paying Utility Bills Answer Date Record ed Do you have trouble paying your heating or elect ricity bill? No 11/08/2024 Transportation Answer Date Recorded Has the lack of transportati on kept you from medical appointments or from getting medications? No 11/08/2024 Digital Access Answer Date Recorded No 11/08/2024 Yes 11/08/2024 Do you have reliable internet access at home? Ye s 11/08/2024 Do you have a device (e.g., phone, tablet, computer) with a working camera? Yes 11/08/2024 Intimate Partner Violence Answer Date R ecorded Are you denied basic needs s uch as food, clothing, or medical care? No 11/08/2024 In the past 12 months have y ou been in a relationship with a person who hurts, threatens, or tries to control you? No 11/08/2024 Are you denied basic needs s uch as food, clothing, or medical care? No 11/08/2024 In the past 12 months have y ou been in a relationship with a person who hurts, threatens, or tries to control you? No 11/08/2024 Sex and Gender Information Value Date Recorded Sex Assigned at Male 03/23/2018 3:07 PM EDT Legal Sex Male 9:32 PM EDT Gender Identity Male 03/23/2018 3:07 PM EDT Sexual Orientation Straight 09/08/2018 9: 13 AM EDT Last Filed Vital Signs Vital Sign Reading Time Taken Comments Blood Pressure 121/80 03/25/2025 1:24 PM EDT Pulse 64 03/25/2025 1:24 PM EDT Temperature 36.5 C (97.7 F) 03/25/2025 1:24 PM EDT Respiratory Rate 18 11/09/2024 3:32 PM EDT Oxygen Saturation 99% 03/25/2025 1:24 PM EDT Inhaled Oxygen Concentration - - Weight 104.4 kg (230 lb 3.2 oz) 03/25/2025 1:24 PM EDT Height 182.9 cm (6' 0.01 ) 03/25/2025 1:24 PM ED T Body Mass Index 31.21 03/25/2025 1:24 PM EDT Plan of Treatment Upcoming Encounters Date Type Department Care Team (Late st Contact Info) Description 04/22/2025 2:50 PM EST Appointment [facility] [address] [place] [address] Lana Simmons MD [address] [place] [address] [email or web address] 04/22/2025 4:00 PM EST Infusion [facility] at [facility] [address] [place] [address] Lana Simmons MD [address] [place] [address] Health Maintenance Due Date Last Done Comments DEPRESSION SCREENING 1984 SMOKING Hx and SMOKELESS TOBACCO SCREENING 1985 HIV ONE-TIME SCREENING (18-65 YEARS) 1990 PNEUMOCOCCAL VACCINES (50+ years) (1 of 2 - PCV) 1991 ZOSTER VACCINES (1 of 2) 1991 COLOGUARD 2017 FIT TEST 2017 FOBT 2017 SIGMOIDOSCOPY 2017 VIRTUAL COLONOSCOPY 2017 INFLUENZA VACCINE (#1) 2025 COVID-19 VACCINE (3 - 2024- season) 2025 09/15/2020, 08/21/2020 BLOOD PRESSURE 09/23/2025 03/25/2025 CREATININE LEVEL 03/25/2026 03/25/2025, , 11/09/2024, Additional history exists POTASSIUM LEVEL 03/25/2026 03/25/2025, 0812/2024, 11/09/2024, Additional history exists SCREENING FOR DIABETES 11/10/2027 11/09/2024 LIPID PANEL 10/07/2029 10/07/2024, 01/13/2022 COLONOSCOPY 04/27/2030 04/27/2020, 04/08/2018 COLORECTAL CANCER SCREENING 04/27/2030 Adult Td,Tdap Booster 09/30/2033 10/01/2023 RSV VACCINE (1 - 1-dose 75+ series) 2047 HEPATITIS C SCREENING Completed 01/13/2022 HEPATITIS A VACCINES Aged Out No long er eligible based on patient's age to complete this topic HIB VACCINES Aged Out No longer eligi ble based on patient's age to complete this topic MENINGOCOCCAL VACCINES (ACWY) Aged Out No longer eligible based on patient's age to complete this topic MENINGOCOCCAL VACCINES (B) Aged Out N o longer eligible based on patient's age to complete this topic Medical Devices Not on file Procedures Procedure Name Priority Date/Time Associated Diagnosis Comments CHROMOGRANIN A Routine 03/25/2025 1:20 PM EDT Neuroendocrine carcinoma COMPREHENSIVE METABOLIC PANEL STAT 03/25/2025 1:20 PM EDT Neuroendocrine carcinoma CBC AND DIFFERENTIAL STAT 03/25/2025 1:20 PM EDT Neuroendocrine carcinoma CHROMOGRANIN A Routine 01/28/2025 1:28 PM EDT Neuroendocrine carcinoma COMPREHENSIVE METABOLIC PANEL STAT 01/28/2025 1:28 PM EDT Neuroendocrine carcinoma CBC AND DIFFERENTIAL STAT 01/28/2025 1:28 PM EDT Neuroendocrine carcinoma ENDOSCOPY, COLON 04/27/2020 9:30 AM EST from Last 3 Months or Most Recently Relevant to Health Maintenance Results * (ABNORMAL) Comprehensive metabolic panel (03/25/2025 1:20 PM EDT) Only the most recent of2 resultswithin the time period is included. SODIUM 141 133 - 146 mmol/L [facility] POTASSIUM 4.9 3.3 - 5.1 mmol/L [facility] CHLORIDE 104 96 - 108 mmol/L [facility] CO2 28 21 - 35 mmol/L [facility] BUN 15 6 - 19 mg/dL [facility] CREATININE 0.90 0.5 - 1.5 mg/dL [facility] GLUCOSE 126(H) 70 - 99 mg/dL [facility] ALBUMIN 4.3 3.9 - 4.8 g/dL [facility] TOTAL PROTEIN 7.4 6.5 - 8.0 g/dL [facility] CALCIUM 9.5 8.4 - 10.3 mg/dL [facility] ALKALINE PHOSPHATASE 72 39 - 117 U/L [facility] TOTAL BILIRUBIN <0.2 0.0 - 1.2 mg/dL [facility] AST 12 0 - 37 U/L [facility] ALT 11 0 - 40 U/L [facility] GLOBULIN 3.1 1 - 4.8 g/dL [facility] EGFR 102 >59 mL/min/1.7 3m2 [facility] Comment:Estimated glomerular filtration rate calculated using the CKD-EPI refit equation. ANION GAP 14 10 - 20 mmol/L [facility] Blood 03/25/2025 1:20 PM EDT 03/25/2025 1:49 PM EDT us Lana Simmons MD LAB BLOOD ORDERABLES Final Re sult [address] [address] * Chromogranin A (03/25/2025 1:20 PM EDT) Only the most recent of2 resultswithin the time period is included. CHROMOGRANIN A 47 <93 ng/mL [facility] Comment: (NOTE) ADDITIONAL INFORMATION The testing method is a homogeneous time-resolved immunofluorescent assay manufactured by [employer] and performed on the eBrevia Kryptor Compact Plus. Values obtained with different assay methods or kits may be different and cannot be used interchangeably. Test results cannot be interpreted as absolute evidence for the presence or absence of malignant disease. In some immunoassays, the presence of unusually high concentrations of analyte may result in a high-dose hook effect. This may result in a lower or even normal measured analyte concentration. If the reported result is inconsistent with the clinical presentation, the laboratory should be alerted for troubleshooting. For diagnostic purposes, these immunoassay results should always be assessed in conjunction with the patients medical history, clinical examination and other findings. Blood 03/25/2025 1:20 PM EDT 03/25/2025 1:44 PM EDT us Lana Simmons MD LAB BLOOD ORDERABLES Final Re sult [facility] [address] [place] [address] * (ABNORMAL) CBC and differential (03/25/2025 1:20 PM EDT) Only the most recent of2 resultswithin the time period is included. WBC 9.78 4.00 - 11.00 K/uL [facility] RBC 4.65 4.50 - 5.90 M/uL [facility] HGB 14.1 13.5 - 17.5 g/dL [facility] HCT 43.1 41.0 - 53.0 % [facility] PLT 256 150 - 450 K/uL [facility] MCV 92.7 80.0 - 100.0 fL [facility] MCH 30.3 27.0 - 31.0 pg [facility] MCHC 32.7 32.0 - 36.0 g/dL [facility] RDW 13.0 11.5 - 14.5 % [facility] MPV 10.5 8.4 - 12.0 fL [facility] NRBC 0.00 0.00 /100 WBCs [facility] ABSOLUTE NRBC 0.00 0.00 K/uL [facility] DIFF METHOD Auto [facility] NEUTS 50.1 48.0 - 76.0 % [facility] LYMPHS 37.2 18.0 - 41.0 % [facility] MONOS 7.3 4.0 - 11.0 % [facility] EOS 3.5 0.0 - 5.0 % [facility] BASOS 0.9 0.0 - 1.5 % [facility] Granulocytes, immature (%) 1.0(H) 0.0 - 0.9 % [facility] ABSOLUTE NEUTS 4.90 1.92 - 7.60 K/uL [facility] ABSOLUTE LYMPHS 3.64 0.72 - 4.10 K/uL [facility] ABSOLUTE MONOS 0.71 0.16 - 1.10 K/uL [facility] ABSOLUTE EOS 0.34 0.00 - 0.50 K/uL [facility] ABSOLUTE BASOS 0.09 0.00 - 0.15 K/uL [facility] Granulocytes, immature 0.10(H) 0.00 - 0.09 K/uL [facility] Blood 03/25/2025 1:20 PM EDT 03/25/2025 1:49 PM EDT us Lana Simmons MD LAB BLOOD ORDERABLES Final Re sult [facility] [address] [place] [address] * ENDOSCOPY, COLON (04/27/2020 9:30 AM EST) Narrative Transcriptions Shalonda Cook MD - 04/27/2020 9:30 AM EST Patient Name: Michele Shen Attending MD:: SHALONDA COOK MD Procedure Date: 04/27/2020 9:30 AM Date of : 1970 Age: 50 Admit Type: Outpatient Gender: Male Room: [facility] 04 Referring MD: Sarah Ramsey Exam Type: Colonoscopy Indications: Last colonoscopy: April 2018, Personal history of malignant neoplasm, carcinoid. Elevated CEA Medications: Propofol per Anesthesia Procedure: Informed consent was obtained from the patient after discussion of the indications, limitations, alternatives, benefits, and risks of the procedure. Risks specifically discussed include but are not limited to medication reactions, missed lesions, bleeding, perforation, or the need for emergentsurgery. Throughout the procedure, the patient's bloodpressure, pulse, end-tidal CO2, and oxygen saturations were monitored continuously. The Olympus adult variable colonoscope [id number] #3was introduced through the anus and advanced to 15 cminto the ileum. The terminal ileum, ileocecal valve, appendiceal orifice, and rectum were photographed.The colonoscopy was performed without difficulty. The patient tolerated the procedure well. The quality of the bowel preparation was good. The bowelpreparation used was GoLYTELY via split dose instruction. Complications: No immediate complications. Estimated blood loss:None. Findings: The digital rectal exam was normal. Pertinentnegatives include normal prostate (size, shape, andconsistency). External hemorrhoids were found during perianalexam. The hemorrhoids were small. The retroflexed view of the distal rectum and anal verge was normal and showed no anal or rectal abnormalities. A few small-mouthed diverticula were found in the sigmoid colon. The exam was otherwise without abnormality. The terminal ileum appeared normal. Scope easily advanced about 15cm. Retroflexion in the right colon was performed. Impression: - External hemorrhoids. - The distal rectum and anal verge are normal on retroflexion view. - Diverticulosis in the sigmoid colon. - The examination was otherwise normal. - The examined portion of the ileum was normal. - No specimens collected. Recommendation: - Repeat colonoscopy in 10 years for screeningpurposes. SHALONDA COOK MD 04/27/2020 10:04:39 AM This report has been signed electronically. Number of Addenda: 0 Note Initiated On: 04/27/2020 9:30 AM Procedure Code(s): --- Professional --- 36040, Colonoscopy, flexible; diagnostic, including collection of specimen(s) by brushing or washing, when performed (separateprocedure) --- Technical --- 94466, Colonoscopy, flexible; diagnostic, including collection of specimen(s) by brushing or washing, when performed (separateprocedure) Diagnosis Code(s): --- Professional --- K64.4, Residual hemorrhoidal skin tags Z85.9, Personal history of malignant neoplasm, unspecified K57.30, Diverticulosis of large intestine without perforation or abscess without bleeding --- Technical --- K64.4, Residual hemorrhoidal skin tags Z85.9, Personal history of malignant neoplasm, unspecified K57.30, Diverticulosis of large intestine without perforation or abscess without bleeding CPT copyright 2018 [employer]. All rights reserved. The codes documented in this report are preliminary and upon central supply technician supervisor reviewmay be revised to meet current compliance requirements. Procedure Date: 04/27/2020 9:30:[address] [place] [id number] [facility] PROCEDURE ORDERABLES Final Result from Last 3 Months or Most Recently Relevant to Health Maintenance Insurance [facility] [place] [place] [address] [facility] [place] [address] [facility] Advance Directives For more information, please contact: [phone] (9AM - 5PM [facility], Sunday-Sunday) Documents on File Type Date Recorded Patient Automatic I Threading Machine Feeder Expl anation Healthcare Proxy 03/25/2018 2:34 PM * Full Code (Latest Code Status on File) Date Activated Date Inactivated Comments 11/08/2024 4:37 PM Question Answer Comments Code Status Confirmed With: Patient Care Teams Time Lock Expert Relationship Specialty Start Date End Date Stormy Valdovinos PA [address] [place] [address] PCP - General Physician District Leader 03/21/24 Lana Simmons MD [address] [place] [address] [email or web address] Primary Oncologist Medical Oncology 02/14/22 Additional Source Comments The information contained in this document represents components of the legal health record. It is not the complete legal health record.[facility]
--- OUTSIDE RECORDS SUMMARY | 2025-04-01 01:38 | XMS_ITS | Encounter Summary ---
Author Organization [facility] Address [address] [place] [address] [place] [address] Phone Care Team Providers Care Maintenance Shop Manager Name Role Phone Everett Carter Primary Care Provider [phone] Everton Nation MD Unavailable + Sarah Reagan MD Unavailable Royce Gr MD Unavailable [phone] Stormy Valdovinos Primary Care Provider [phone] Elver Gomez MD Unavailable [phone] Royce Gr MD Unavailable [phone] Lana Simmons MD Unavailable [phone] Sarah Reagan MD Unavailable Elver Gomez MD Unavailable [phone] Cordelia Hernandez PULLMAN CAR REPAIRER Unavailable [phone] Lana Simmons MD Unavailable [phone] Royce Gr MD Primary Care Provider [phone] Pamela Gaviria RN Unavailable Stormy Valdovinos Primary Care Provider [phone] Encounter Details Date Type Department Care Team (Latest Contact Info) Description 09/26/2018 Transcribe Orders [facility] Laboratory [address] [place] [address] Ange Naqvi DO [address] [place] [address] [email or web address] Screening for unspecified condition (Primary Dx) Social [...] 04/22/2025 2:50 PM EST Appointment [facility] [address] [place] [address] Lana Simmons MD [address] [place] [address] 04/22/2025 4:00 PM EST Infusion [facility] at [address] [address] Lana Simmons MD [address] [place] [address] [email or web address] documented as of this encounter Results * Chemistry Hold (09/27/2018 12:04 PM EDT) Blood 09/27/2018 12:0 4 PM EDT 09/27/2018 12:15 PM EDT us Ange Naqvi DO LAB BLOOD ORDERABLES Final Result [address] [address] documented in this encounter Visit Diagnoses Diagnosis Screening for unspecified condition- Primary documented in this encounter Care Teams Maintenance Shop Manager Relationship Specialty Start Date End Date Everett Carter PA [address] Gina [address] [address] [email or web address] PCP - General Unknown Provider Specialty 04/09/18 11/29/20 Stormy Valdovinos PA [address] [place] [address] PCP - General 11/30/20 05/08/23 Royce Gr MD [address] [place] [address] PCP - General Family Medicine 05/09/23 03/20/24 Stormy Valdovinos PA [address] [place] [address] PCP - General Physician Stamp Analyst 03/21/24 Everton Nation MD 238 [place] [address] [email or web address] Insurance Assigned Provider 09/07/18 05/09/20 Sarah Reagan MD [address] [place] [address] [email or web address] Primary Oncologist Hematology and Oncology 03/31/20 06/26/21 Royce Gr MD [address] [place] [address] [email or web address] Insurance Assigned Provider 05/09/20 02/12/21 Elver Gomez MD [address] [place] [address] [email or web address] Insurance Assigned Provider 02/12/21 07/10/21 Royce Gr MD [address] [place] [address] [email or web address] Insurance Assigned Provider 07/10/21 02/11/22 Lana Simmons MD [address] [place] [address] [email or web address] Primary Oncologist Medical Oncology 07/22/21 02/13/22 Sarah Reagan MD [address] [place] [address] [email or web address] Historical LMR Provider Hematology and Oncology 07/22/21 05/14/22 Elver Gomez MD [address] [place] [address] [email or web address] Insurance Assigned Provider 02/11/22 07/08/22 Cordelia Hernandez PULLMAN CAR REPAIRER [address] [place] [address] [email or web address] Nurse Practitioner Medical Oncology 02/14/22 08/12/24 Lana Simmons MD 30 [place] [address] [email or web address] Primary Oncologist Medical Oncology 02/14/22 Pamela Gaviria VIJAY [address] [place] [address] [email or web address] PHC Track Manager 06/19/23 06/28/23 documented as of this encounter Additional Source Comments The information contained in this document represents components of the legal health record. It is not the complete legal health record.[facility]
--- OUTSIDE RECORDS SUMMARY | 2025-04-01 01:38 | XMS_ITS | Encounter Summary ---
Author Organization [facility] Address [address] [facility] [address] [place] [address] Phone Care Team Providers Care High Reach Operator Name Role Phone Everett Carter Primary Care Provider [phone] Everton Nation MD Unavailable + Sarah Reagan MD Unavailable Royce Gr MD Unavailable [phone] Stormy Valdovinos Primary Care Provider [phone] Elver Gomez MD Unavailable [phone] Royce Gr MD Unavailable Lana Simmons MD Unavailable Sarah Reagan MD Unavailable Elver Gomez MD Unavailable [phone] Cordelia Hernandez MACHINE OPERATOR GENERAL Unavailable [phone] Lana Simmons MD Unavailable Royce Gr MD Primary Care Provider [phone] Pamela Gaviria RN Unavailable Stormy Valdovinos Primary Care Provider [phone] Encounter Details Date Type Department Care Team (Late st Contact Info) Description 04/15/2020 Procedure Pass [facility], Ct Scan - [address] [address] Social History Tobacco Use Types Packs/Day Years [...] 04/22/2025 2:50 PM EST Appointment [facility] Laboratory [address] [place] [address] Lana Simmons MD [address] [place] [address] 04/22/2025 4:00 PM EST Infusion [facility] at [facility] 30 [place] [address] Lana Simmons MD [address] [place] [address] [email or web address] documented as of this encounter Visit Diagnoses Not on filedocumented in this encounter Care Teams High Reach Operator Relationship Specialty Start Date End Date Everett Carter PA [address] [place] [address] [email or web address] PCP - General Unknown Provider Specialty 04/09/18 11/29/20 Stormy Valdovinos PA 238 [place] [address] PCP - General 11/30/20 05/08/23 Royce Gr MD [address] [place] [address] [email or web address] PCP - General Family Medicine 05/09/23 03/20/24 Stormy Valdovinos PA [address] [place] [address] PCP - General Physician Oil Developer 03/21/24 Everton Nation MD [address] [place] [address] [email or web address] Insurance Assigned Provider 09/07/18 05/09/20 Sarah Reagan MD [address] [place] [address] [email or web address] Primary Oncologist Hematology and Oncology 03/31/20 06/26/21 Royce Gr MD [address] [place] [address] [email or web address] Insurance Assigned Provider 05/09/20 02/12/21 Elver Gomez MD [address] [place] [address] [email or web address] Insurance Assigned Provider 02/12/21 07/10/21 Royce Gr MD [address] [place] [address] [email or web address] Insurance Assigned Provider 07/10/21 02/11/22 Lana Simmons MD [address] [place] [address] Primary Oncologist Medical Oncology 07/22/21 02/13/22 Sarah Reagan MD [address] [place] [address] [email or web address] Historical LMR Provider Hematology and Oncology 07/22/21 05/14/22 Elver Gomez MD 238 [place] [address] Insurance Assigned Provider 02/11/22 07/08/22 Cordelia Hernandez NP [address] [place] [address] Nurse Practitioner Medical Oncology 02/14/22 08/12/24 Lana Simmons MD 30 [place] [address] Primary Oncologist Medical Oncology 02/14/22 Pamela Gaviria RN 10 [place] [address] PHCM Keypunch Operators Supervisor 06/19/23 06/28/23 documented as of this encounter Additional Source Comments The information contained in this document represents components of the legal health record. It is not the complete legal health record.[facility]
--- OUTSIDE RECORDS SUMMARY | 2025-04-01 01:38 | XMS_ITS | Encounter Summary ---
Author Organization [facility] Address [address] [facility] [address] [place] [address] Phone Care Team Providers Care Medical Equipment Repairer Name Role Phone Cordelia Hernandez NURSING ADMIN Unavailable [phone] Lana Simmons MD Unavailable Royce Gr MD Primary Care Provider Pamela Gaviria RN Unavailable Stormy Valdovinos Primary Care Provider Encounter Details Date Type Department Care Team (Late st Contact Info) Description 05/22/2023 Procedure Pass [facility], Ct Scan - [address] [address] Social History Tobacco Use Types Packs/Day Years [...] 2:50 PM EST Appointment [facility] Laboratory 30 [place] [address] Lana Simmons MD 30 [place] [address] 04/22/2025 4:00 PM EST Infusion [facility] [place] 30 [place] [address] Lana Simmons MD 30 [place] [address] documented as of this encounter Visit Diagnoses Not on filedocumented in this encounter Care Teams Medical Equipment Repairer Relationship Specialty Start Date End Date Royce Gr MD [address] [place] [address] PCP - General Family Medicine 05/09/23 03/20/24 Stormy Valdovinos PA [address] [place] [address] PCP - General Physician Windows Architect 03/21/24 Cordelia Hernandez NP [address] [place] [address] Nurse Practitioner Medical Oncology 02/14/22 08/12/24 Lana Simmons MD [address] [place] [address] Primary Oncologist Medical Oncology 02/14/22 Pamela Gaviria, RN 10 [place] [address] [email or web address] [facility] Card Tender 06/19/23 06/28/23 documented as of this encounter Additional Source Comments The information contained in this document represents components of the legal health record. It is not the complete legal health record.[facility]
--- OUTSIDE RECORDS SUMMARY | 2025-04-01 01:38 | XMS_ITS | Encounter Summary ---
Author Organization [facility] Address [address] [place] [address] Phone Care Team Providers Care Sample Display Preparer Name Role Phone Everett Carter Primary Care Provider [phone] Everton Nation MD Unavailable + Sarah Reagan MD Unavailable Royce Gr MD Unavailable [phone] Stormy Valdovinos Primary Care Provider [phone] Elver Gomez MD Unavailable [phone] Royce Gr MD Unavailable Lana Simmons MD Unavailable Sarah Reaagn MD Unavailable Elver Gomez MD Unavailable [phone] Cordelia Hernandez MOLD DESIGN ENGINEER Unavailable [phone] Lana Simmons MD Unavailable Royce Gr MD Primary Care Provider [phone] Pamela Gaviria RN Unavailable Stormy Valdovinos Primary Care Provider [phone] Encounter Details Date Type Department Care Team (Late st Contact Info) Description 04/27/2020 Procedure Pass [facility] Endoscopy Admitting Dept Virtual Department 30 [place], [place] [id number] Social History Tobacco Use Types Packs/Day Years [...] 04/22/2025 2:50 PM EST Appointment [facility] Laboratory [address] [place] [address] Lnaa Simmons MD [address] [place] [address] 04/22/2025 4:00 PM EST Infusion [facility] 30 [place] [address] Lana Simmons MD [address] [place] [address] documented as of this encounter Visit Diagnoses Not on filedocumented in this encounter Care Teams Sample Display Preparer Relationship Specialty Start Date End Date Everett Carter PA [address] [place] [address] [email or web address] PCP - General Unknown Provider Specialty 04/09/18 11/29/20 Stormy Valdovinos PA 238 [place] [address] PCP - General 11/30/20 05/08/23 Royce Gr MD [address] [place] [address] [email or web address] PCP - General Family Medicine 05/09/23 03/20/24 Stormy Valdovinos PA [address] [place] [address] PCP - General Physician Email Marketing Manager 03/21/24 Everton Nation MD [address] [place] [address] [email or web address] Insurance Assigned Provider 09/07/18 05/09/20 Sarah Reagan MD [address] [place] [address] [email or web address] Primary Oncologist Hematology and Oncology 03/31/20 06/26/21 Royce Gr MD [address] [place] [address] [email or web address] Insurance Assigned Provider 05/09/20 02/12/21 Elver Gomez MD [address] [place] [address] [email or web address] Insurance Assigned Provider 02/12/21 07/10/21 Royce Gr MD [address] [place] [address] [email or web address] Insurance Assigned Provider 07/10/21 02/11/22 Lana Simmons MD [address] [place] [address] Primary Oncologist Medical Oncology 07/22/21 02/13/22 Sarah Reagan MD [address] [place] [address] [email or web address] Historical LMR Provider Hematology and Oncology 07/22/21 05/14/22 Elver Gomez MD 238 [place] [address] Insurance Assigned Provider 02/11/22 07/08/22 Cordelia Hernandez NP [address] [place] [address] Nurse Practitioner Medical Oncology 02/14/22 08/12/24 Lana Simmons MD 30 [place] [address] [email or web address] Primary Oncologist Medical Oncology 02/14/22 Pamela Gaviria, VIJAY 10 [place] [address] PHCM Tipping Machine Operator 06/19/23 06/28/23 documented as of this encounter Additional Source Comments The information contained in this document represents components of the legal health record. It is not the complete legal health record.[facility]
--- OUTSIDE RECORDS SUMMARY | 2025-04-01 01:38 | XMS_ITS | Encounter Summary ---
Author Organization [facility] Address [address] [facility] [address] [place] [address] Phone Care Team Providers Care Information Services Consultant Name Role Phone Cordelia Hernandez TETRYL DISSOLVER OPERATOR Unavailable Lana Simmons MD Unavailable [phone] Royce Gr MD Primary Care Provider Stormy Valdovinos Primary Care Provider Encounter Details Date Type Department Care Team (Late st Contact Info) Description 12/26/2023 Procedure Pass [facility], Ct Scan - [address] [address] Social History Tobacco Use Types Packs/Day Years [...] 2:50 PM EST Appointment [facility] Laboratory 30 [place] [address] Lana Simmons MD 30 [place] [address] 04/22/2025 4:00 PM EST Infusion [facility] 30 [place] [address] Lana Simmons MD 30 [place] [address] documented as of this encounter Visit Diagnoses Not on filedocumented in this encounter Care Teams Information Services Consultant Relationship Specialty Start Date End Date Royce Gr MD [address] [place] [address] [email or web address] PCP - General Family Medicine 05/09/23 03/20/24 Stormy Valdovinos PA 238 [place] [address] PCP - General Physician Rough Rounder 03/21/24 Cordelia Hernandez NP [address] [place] [address] Nurse Practitioner Medical Oncology 02/14/22 08/12/24 Lana Simmons MD [address] [place] [address] Primary Oncologist Medical Oncology 9/13/22 documented as of this encounter Additional Source Comments The information contained in this document represents components of the legal health record. It is not the complete legal health record.[facility]
--- OUTSIDE RECORDS SUMMARY | 2025-04-01 01:38 | XMS_ITS | Encounter Summary ---
Author Organization [facility] Address [address] [place] [address] Phone Care Team Providers Care Donor Relations Associate Name Role Phone Pcp, Not Required Primary Care Provider Unavaila Everett Pham Primary Care Provider Everton Nation MD Unavailable + Sarah Reagan MD Unavailable Royce Gr MD Unavailable [phone] Stormy Valdovinos Primary Care Provider [phone] Elver Gomez MD Unavailable [phone] Royce Gr MD Unavailable Lana Simmons MD Unavailable Sarah Reagan MD Unavailable Elver Gomez MD Unavailable [phone] Cordelia Hernandez NP Unavailable [phone] Lana Simmons MD Unavailable Royce Gr MD Primary Care Provider [phone] Pamela Gaviria RN Unavailable Stormy Valdovinos Primary Care Provider [phone] Encounter Details Date Type Department Care Team (Late st Contact Info) Description 03/26/2018 Procedure Pass [facility] 30 [place] [address] Social History Tobacco Use Types Packs/Day Years [...] 04/22/2025 2:50 PM EST Appointment [facility] Laboratory [address] [place] [address] Lana Simmons MD [address] [place] [address] 04/22/2025 4:00 PM EST Infusion [facility] at [facility] 30 [place] [address] Lana Simmons MD [address] [place] [address] [email or web address] documented as of this encounter Visit Diagnoses Not on filedocumented in this encounter Care Teams Donor Relations Associate Relationship Specialty Start Date End Date Pcp, Not Required [address] [place] [address] PCP - General 03/23/18 04/08/18 Everett Carter PA [address] [place] [address] [email or web address] PCP - General Unknown Provider Specialty 04/09/18 11/29/20 Stormy Valdovinos PA 238 [place] [address] PCP - General 11/30/20 05/08/23 Royce Gr MD [address] [place] [address] [email or web address] PCP - General Family Medicine 05/09/23 03/20/24 Stormy Valdovinos PA [address] [place] [address] PCP - General Physician Watch Repair Technician 03/21/24 Everton Nation MD [address] [place] [address] [email or web address] Insurance Assigned Provider 09/07/18 05/09/20 Sarah Reagan MD [address] [place] [address] [email or web address] Primary Oncologist Hematology and Oncology 03/31/20 06/26/21 Royce Gr MD [address] [place] [address] [email or web address] Insurance Assigned Provider 05/09/20 02/12/21 Elver Gomez MD [address] [place] [address] [email or web address] Insurance Assigned Provider 02/12/21 07/10/21 Royce Gr MD [address] [place] [address] [email or web address] Insurance Assigned Provider 07/10/21 02/11/22 Lana Simmons MD 30 [place] [address] Primary Oncologist Medical Oncology 07/22/21 02/13/22 Sarah Reagan MD [address] [place] [address] [email or web address] Historical LMR Provider Hematology and Oncology 07/22/21 05/14/22 Elver Gomez MD 238 [place] [address] Insurance Assigned Provider 02/11/22 07/08/22 Cordelia Hernandez NP [address] [place] [address] Nurse Practitioner Medical Oncology 02/14/22 08/12/24 Lana Simmons MD 30 [place] [address] [email or web address] Primary Oncologist Medical Oncology 02/14/22 Pamela Gaviria, VIJAY 10 [place] [address] PHCM Marketing Clerk 06/19/23 06/28/23 documented as of this encounter Additional Source Comments The information contained in this document represents components of the legal health record. It is not the complete legal health record.[facility]
--- OUTSIDE RECORDS SUMMARY | 2025-04-01 01:38 | XMS_ITS | Data Portability ---
Author Organization [place] - [facility], Allergy Address [address] [address] Care Team Providers Care Cardio Tech Name Role Phone EDNA QUIELS Primary Care Provider ROME HAWKINS Primary Care Provider Assessment Encounter Date Assessment Date Assessment LastModified by Organization Details LastModified Time 02/06/2024 02/06/2024 On examination today the right t-tube has extruded and was removed from the right ear canal. There is a right middle ear effusion. Audiogram demonstrates a mild conductive hearing loss in the right ear. The patient would benefit from tube replacement. We will schedule this next available with . sherman Not available 02/06/2024 11:22:22 Plan of Treatment Reminders Order Date Submit Date Provider Last Modified By Organization Details Last Modified Time Details Appointments None recorded. Lab None recorded. Referral None recorded. Procedures None recorded. Surgeries None recorded. Imaging None recorded. Medication Orders ofloxacin 0.3 % ear drops 2023 024 [facility]/Pharmacy #[id number], [address] [place], [address], 11:20:04 Patient TargetsNo targets recorded. Patient InstructionsNo instructions recorded. Reason for Referral None Reported. Results Created Date Observation Date Name Description Value Unit Range Abnormal Flag Note LastModifiedBy Organization Detail LastModifiedTime 01/23/20 24 03/10/2020 imagi ng/di agnos tic resul t No observ ation record ed. [email or web address] Not Available 21:56:46 01/23/20 24 03/10/2020 audio gram No observ ation record ed. [email or web address] Not Available 21:56:55 02/07/20 24 02/06/2024 audio gram No observ ation record ed. [email or web address] Not Available 2023 08:45:37 Result Notes None recorded. Problems Name Problem SNOMED Code Status Onset Date Resolution Date Notes Provider Name and Address Organization Details Recorded Time Mixed conductiv e and sensorine ural hearing loss of right ear 92469775479 105 Active 2019 Mixed conductiv e and sensorine ural hearing loss, unilatera l, right ear, with unrestric meron hearing on the contralat eral side; Note: Date Diagnosed : 03/10/2020 12:04 PM (H90.71) Not Available [facility] 4 03:20:59 Chronic serous otitis media of right ear 993367084 Active 2019 Chronic serous otitis media, right ear; Note: Date Diagnosed : 03/10/2020 12:47 PM (H65.21) Not Available [facility] 4 03:20:58 Tinnitus of right ear 64764394386 08 Active 2019 Tinnitus, right ear; Note: Date Diagnosed : 03/10/2020 12:04 PM (H93.11) Not Available [facility] 4 03:20:59 Disorder of right Eustachia n tube 29813523809 63534 Active 2021 Other specified disorders of Eustachia n tube, right ear; Note: Date Diagnosed : 09/21/2021 3:10 PM (H69.81) Not Available [facility] 4 03:20:59 Pain of right temporoma ndibular joint 88043025695 477812 Active 2021 Arthralgi a of right temporoma ndibular joint; Note: Date Diagnosed : 09/21/2021 3:11 PM (M26.621) Not Available [facility] 4 03:20:59 Conductiv e hearing loss 79328566 Active 2023 LUIS F HERRERA, [place] [address], [place], [id number] , [place] - [facility] 4 10:50:09 Dysfuncti on of right eustachia n tube 29988625179 45849 Active 2023 KIM VELEZ MD 100 [facility],[place] [address], [place], [id number] , [place] - [facility] 4 10:23:35 Dysfuncti on of eustachia n tube 06716792 Active 2023 KIM VELEZ MD 100 [facility],[place] [address], [facility] [place] [id number] , [place] - [facility] 4 11:19:49 Impacted cerumen in right ear 12192450824 Active 2024 KIM VELEZ MD [address] [place] [address],[place] [address], [place], [address] , [place] - [facility] 5 13:22:59 Problem Notes None recorded. Procedures Surgical History Date Name Laterality Status Provider Name and Address Organization Details Recorded Time 5 Cerumen removal with microscope right completed KIM VELEZ MD [address] [place] [address],[address], [address], [facility] - [facility] 08/06/2024 13:23:20 4 Myringotomy w/Placement of Tube right completed KIM VELEZ MD 100 [facility],[address], [address], [facility] - [facility] 02/14/2024 10:24:04 4 Comp Audio with Tymps - 39634 & 49077 completed AURY HAMMONDS 100 [facility],[place] [address], [place], [address], [facility] - [facility] 02/06/2024 10:49:45 Imaging Results None recorded. Procedure Notes None recorded. Medical Equipment None Reported. Allergies No known drug allergies Medications Name Sig Start Date Stop Date Status Note LastModified by Organization Details LastModified Time methylphe nidate 10 mg tablet TAKE 1 TABLET BY MOUTH TWICE A DAY 02/05 completed Not Available Not Available Not Available methylphe nidate 20 mg tablet TAKE 1 TABLET BY MOUTH TWICE A DAY 02/05 completed Not Available Not Available Not Available lisinopri l 20 mg tablet 02/05 completed Medicati on ID: [id number] Giselle rand Name: lisinopr il Send Method: E-Prescr ibed Sub s Allowed: subs OK Speci al Instruct ion: TAKE 1 TABLET BY MOUTH EVERY DAY Medi cationGe nericNam e: lisinopr il Not Available Not Available Not Available dextroamp hetamine- amphetami ne 10 mg tablet TAKE 1 TABLET BY MOUTH TWICE A DAY FOR 28 DAYS active Not Available Not Available No t Available alprazola m 0.5 mg tablet TAKE 1 TABLET EVERY DAY BY ORAL ROUTE NEEDED. active Not Available Not Available No t Available ofloxacin 0.3 % ear drops INSTILL 5 DROPS IN AFFECTED EAR TWICE A DAY FOR 5 DAYS. active Not Available Not Available No t Available amlodipin e 10 mg tablet TAKE 1 TABLET BY MOUTH EVERY DAY active Not Available Not Available No t Available doxycycli ne monohydra te 100 mg capsule TAKE 1 CAPSULE (100 MG TOTAL) BY MOUTH 2 (TWO) TIMES A DAY FOR 10 DAYS. TAKE WITH PROBIOTI C 02/05 completed Not Available Not Available Not Available nicotine 21 mg/24 hr daily transderm al patch APPLY 1 PATCH EVERY DAY 02/05 completed Not Available Not Available Not Available mupirocin 2 % topical ointment APPLY TO AFFECTED AREA 3 TIMES A DAY 02/05 completed Not Available Not Available Not Available lisinopri l 40 mg tablet TAKE 1 TABLET BY MOUTH EVERY DAY active Not Available Not Available No t Available oxycodone 5 mg tablet TAKE 1 TABLET BY MOUTH EVERY 6 HOURS NEEDED FOR PAIN active Not Available Not Available No t Available escitalop chary 10 mg tablet TAKE 1/2 TABLET DAILY BY MOUTH 02/05 completed Not Available Not Available Not Available bupropion HCl XL 300 mg 24 hr tablet, extended release TAKE 1 TABLET BY MOUTH EVERY DAY active Not Available Not Available No t Available bupropion HCl XL 150 mg 24 hr tablet, extended release TAKE 1 TABLET BY MOUTH EVERY DAY 02/05 completed Not Available Not Available Not Available escitalop chary 5 mg tablet TAKE 1 TABLET BY MOUTH EVERY DAY active Not Available Not Available No t Available Vitals Date Recorded Body height Body mass index (BMI) Body weight Provider Name and Address Organization Details Last Updated DateTime 08/06/2024 182.88 cm 30.5 kg/m2 673832.28 g Volodymyr Acosta [place] - [facility] 08/06/2024 12:56:14 Date Recorded Body height Body mass index (BMI) Body weight Provider Name and Address Organization Details Last Updated DateTime 02/06/2024 182.88 cm 30.5 kg/m2 785261.28 g Azalia Munoz ID - [facility] 02/06/2024 10:31:17 Date Recorded Body height Body mass index (BMI) Body weight Provider Name and Address Organization Details Last Updated DateTime 02/14/2024 182.88 cm 30.5 kg/m2 699219.28 g Volodymyr Acosta [facility] 02/14/2024 10:03:15 Social History None recorded. Functional Status None recorded. Mental Status None recorded. Family History Nothing Reported. Medical History No medical history recorded. Past Encounters Encounter ID Performer Location Encounter Start Date Encounter Closed Date Diagnosis/Indication Diagnosis SNOMED-CT Code Diagnosis ICD10 Code Diagnosis IMO Codes Diagnosis Note [id number] MARIA DEL ROSARIO OAKLEY PA-C [facility] on [address] [place] [address] 02/06/2024 10:25:27 02/06/2024 11:41:43 Conductive hearing loss 35538123 H90.11 Audiologic al evaluation results: 02/06/2024 Right ear: Mild flat conductive hearing loss with excellent word recognitio n. Left ear: Normal hearing with excellent word recognitio n. Tympanomet ry: Right Ear:Type B Left Ear:Type A Chronic se joelle otitis media of right ear 511611864 H65.21 [id number] KIM VELEZ MD [facility] on [address] [place] [address] 02/14/2024 09:58:30 02/14/2024 10:37:19 Chronic serous otitis media of right ear 263793296 H65.21 tube placed without difficulty . noted improved hearing. f/u 6months for tube check Dysfunctio n of right eustachian tube 1871921809 849547 H69.91 see above [id number] KIM VELEZ MD [facility] on [address] [place] [address] 08/06/2024 12:54:12 08/06/2024 13:21:27 Chronic serous otitis media of right ear 059275455 H65.21 resolved. i removed an extruded tube and cerumen. I congratula meron him on stopping smoking. He may f/u as needed. Dysfunctio n of right eustachian tube 7669495632 759728 H69.91 see above Impacted c erumen in right ear 2649488049 034088 H61.21 Recurrent Cerumen Impactions : Ears were meticulous ly cleaned bilaterall y today with a curette and suction. The patient tolerated this well and will follow up for repeat debridemen t per routine. Health Concerns Section Related Observation LastModified by Organization Detai ls LastModified Time None Recorded Concern Status LastModified by Organization Details LastModified Time None Recorded Advance Directives Directive None Recorded Payers Insurance Date Sequence Insurance Name Policy Number Policy Mckeon Covered Member ID Mckeon Member ID Guarantor Name 02/06/2024 1 MEDICAID-ID: [facility] Michele Steffanyfettone [id number] Michele Maffettone 08/06/2024 1 [facility] HP - DOS ON OR AFTER 2022 - [facility] (MEDICAID REPLACEMENT - HMO) Michele Maffettone [id number] Michele Maffettone Notes Date Note Type Note Provider Name and Address Organization Details Recorded Time 02/06/2024 text/html ROS as noted in the HPI 53 year old male with a history of ETD s/p right t-tube placement in March 2020 with . Last seen in 2021. Reports he was doing well, but several weeks ago he had a few days of sharp pain the right ear. His right ear has been feeling blocked for about a month now. No otorrhea. KIM VELEZ MD [address] [place] [address], [place], [address], [place] - [facility] 02/06/2024 11:33:16 02/14/2024 text/html ROS as noted in the HPI Hx of ETD and CSOM AD. Hx ot t-tube in the past. Audio last week showed CHL with a flat tymp AD. Interested in tube placement again. Prior nasal endo normal. KIM VELEZ MD [address] [place] [address], [address], [place] - [facility] 02/14/2024 13:47:37 08/06/2024 text/html ROS as noted in the HPI Hx of ETD and CSOM AD. Hx ot t-tube AD. Quit smoking since the last visit. He is still hearing well as far as he can tell. Prior nasal endo normal. KIM VELEZ MD [address] [place] [address],[place] [address], [place], [address], [place] [facility] 08/06/2024 13:23:52
--- OUTSIDE RECORDS SUMMARY | 2025-04-01 01:38 | XMS_ITS | Encounter Summary ---
Author Organization [facility] Address [address] [facility] [address] [place] [address] Phone Care Team Providers Care Marble Supervisor Name Role Phone Cordelia Hernandez REGISTER OF WILLS Unavailable [phone] Lana Simmons MD Unavailable [phone] Stormy Valdovinos Primary Care Provider [phone] Encounter Details Date Type Department Care Team (Late st Contact Info) Description 05/14/2024 Procedure Pass [facility], Ct Scan - [facility] [address] [place] [address] Social History Tobacco Use Types Packs/Day Years [...] with a working camera? Not on file Intimate Partner Violence Answer Date R ecorded Are you denied basic needs s uch as food, clothing, or medical care? No 05/14/2024 In the past 12 months have y ou been in a relationship with a person who hurts, threatens, or tries to control you? No 05/14/2024 Are you denied basic needs s uch as food, clothing, or medical care? No 05/14/2024 In the past 12 months have y ou been in a relationship with a person who hurts, threatens, or tries to control you? No 05/14/2024 Sex and Gender Information Value Date Recorded Sex Assigned at Male 03/23/2018 3:07 PM EDT Legal Sex Male 9:32 PM EDT Gender Identity Male 03/23/2018 3:07 PM EDT Sexual Orientation Straight 09/08/2018 9: 13 AM EDT documented as of this encounter Functional Status * Calculated C-SSRS Risk Score (Lifetime/Recent) Answer Date of Assessment Author No Risk Indicated 05/14/2024 5:26 PM EST Ashwini Rowley RN * [place] Suicide Severity Rating Scale (Screener/Recent Self-Report) Question Answer Date of Assessment Author 1. Wish to be (Past 1 Month) No 05/14/2024 5:26 PM EST Ashwini Rowley, VIJAY 2. Non-Specific Active Suici jazmin Thoughts (Past 1 Month) No 05/14/2024 5:26 PM EST Ashwini Rowley, VIJAY 6. Suicidal Behavior (Lifetime) No 5:26 PM EST Ashwini Rowley, VIJAY documented as of this encounter Plan of Treatment Upcoming Encounters Date Type Department Care Team (Late st Contact Info) Description 04/22/2025 2:50 PM EST Appointment [facility] [address] [place] [address] Lana Simmons MD [address] [place] [address] 04/22/2025 4:00 PM EST Infusion [facility] [address] [place] [address] Lana Simmons MD [address] [place] [address] documented as of this encounter Visit Diagnoses Not on filedocumented in this encounter Care Teams Marble Supervisor Relationship Specialty Start Date End Date Stormy Valdovinos PA [address] [place] [address] PCP - General Physician Oil Spot Washer 03/21/24 Cordelia Hernandez NP [address] [place] [address] [email or web address] Nurse Practitioner Medical Oncology 02/14/22 08/12/24 Lana Simmons MD [address] [place] [address] [email or web address] Primary Oncologist Medical Oncology 02/14/22 documented as of this encounter Additional Source Comments The information contained in this document represents components of the legal health record. It is not the complete legal health record.[facility]
--- OUTSIDE RECORDS SUMMARY | 2025-04-01 01:38 | XMS_ITS | Encounter Summary ---
Author Organization [facility] Address [address] [place] [address] [place] [address] Phone Care Team Providers Care Field Crop Farm Worker Name Role Phone Everett Carter Primary Care Provider [phone] Everton Nation MD Unavailable + Sarah Reagan MD Unavailable Royce Gr MD Unavailable [phone] Stormy Vadlovinos Primary Care Provider [phone] Elver Gomez MD Unavailable [phone] Royce Gr MD Unavailable [phone] Lana Simmons MD Unavailable [phone] Sarah Reagan MD Unavailable Elver Gomez MD Unavailable [phone] Cordelia Hernandez SUPERVISOR ROD PLACING Unavailable [phone] Lana Simmons MD Unavailable Royce Gr MD Primary Care Provider [phone] Pamela Gaviria RN Unavailable Stormy Valdovinos Primary Care Provider [phone] Encounter Details Date Type Department Care Team (Latest Contact Info) Description 08/28/2018 Transcribe Orders [facility] Laboratory [address] [place] [address] Ange Naqvi DO [address] [place] [address] [email or web address] Screening for unspecified condition (Primary Dx) Social [...] 04/22/2025 2:50 PM EST Appointment [facility] [address] [place] [address] Lana Simmons MD [address] [place] [address] 04/22/2025 4:00 PM EST Infusion [facility] at [address] [address] Lana Simmons MD [address] [place] [address] [email or web address] documented as of this encounter Results * Chemistry Hold (08/29/2018 12:47 PM EDT) Blood 08/29/2018 12:4 7 PM EDT 08/29/2018 1:09 PM EDT us Ange Naqvi DO LAB BLOOD ORDERABLES Final Result [address] [address] documented in this encounter Visit Diagnoses Diagnosis Screening for unspecified condition- Primary documented in this encounter Care Teams Field Crop Farm Worker Relationship Specialty Start Date End Date Everett Carter PA [address] Gina [address] [address] [email or web address] PCP - General Unknown Provider Specialty 04/09/18 11/29/20 Stormy Valdovinos PA [address] [place] [address] PCP - General 11/30/20 05/08/23 Royce Gr MD [address] [place] [address] PCP - General Family Medicine 05/09/23 03/20/24 Stormy Valdovinos PA [address] [place] [address] PCP - General Physician Bulk Picker 03/21/24 Everton Nation MD [address] [place] [address] [email or web address] Insurance Assigned Provider 09/07/18 05/09/20 Sarah Reagan MD [address] [place] [address] [email or web address] Primary Oncologist Hematology and Oncology 03/31/20 06/26/21 Royce Gr MD [address] [place] [address] [email or web address] Insurance Assigned Provider 05/09/20 02/12/21 Elver Gomez MD [address] [place] [address] [email or web address] Insurance Assigned Provider 02/12/21 07/10/21 Royce Gr MD [address] [place] [address] [email or web address] Insurance Assigned Provider 07/10/21 02/11/22 Lana Simmons MD [address] [place] [address] [email or web address] Primary Oncologist Medical Oncology 07/22/21 02/13/22 Sarah Reagan MD [address] [place] [address] [email or web address] LMR Provider Hematology and Oncology 07/22/21 05/14/22 Elver Gomez MD [address] [place] [address] [email or web address] Insurance Assigned Provider 02/11/22 07/08/22 Cordelia Hernandez SUPERVISOR ROD PLACING [address] [place] [address] [email or web address] Nurse Practitioner Medical Oncology 02/14/22 08/12/24 Lana Simmons MD [address] [place] [address] [email or web address] Primary Oncologist Medical Oncology 02/14/22 Pamela Gaviria VIJAY [address] [place] [address] [email or web address] PHC Photographic Intelligence Officer 06/19/23 06/28/23 documented as of this encounter Additional Source Comments The information contained in this document represents components of the legal health record. It is not the complete legal health record.[facility]
--- OUTSIDE RECORDS SUMMARY | 2025-04-01 01:38 | XMS_ITS | Encounter Summary ---
Author Organization [facility] Address [address] [facility] [address] [place] [address] Phone Care Team Providers Care Wax Bleacher Name Role Phone Lana Simmons MD Unavailable [phone] Stormy Valdovinos Primary Care Provider [phone] Encounter Details Date Type Department Care Team (Late st Contact Info) Description 11/08/2024 Procedure Pass [facility], Ct Scan - [facility] [address] [place] [address] Social History Tobacco Use Types Packs/Day Years Used Date Smoking Tobacco: Former Cigarettes 0.5 30 Smokeless Tobacco: Never Alcohol [...] Date of Assessment Author No Risk Indicated 11/08/2024 5:00 PM EDT Gen Metzger RN * [place] Suicide Severity Rating Scale (Screener/Recent Self-Report) Question Answer Date of Assessment Author 1. Wish to be (Past 1 Month) No 11/08/2024 5:00 PM EDT Gen Metzger RN 2. Non-Specific Active Suicidal Thoughts (Past 1 Month) No 11/08/2024 5:00 PM EDT Gen Metzger RN 6. Suicidal Behavior (Lifetime) No 11/08/2024 5:00 PM EDT Gen Metzger RN documented as of this encounter Plan of Treatment Upcoming Encounters Date Type Department Care Team (Late st Contact Info) Description 04/22/2025 2:50 PM EST Appointment [facility] [address] [place] [address] Lana Simmons MD [address] [place] [address] 04/22/2025 4:00 PM EST Infusion [facility] [address] [place] [address] Lana Simmons MD [address] [place] [address] [email or web address] documented as of this encounter Visit Diagnoses Not on filedocumented in this encounter Care Teams Wax Bleacher Relationship Specialty Start Date End Date Stormy Valdovinos PA [address] [place] [address] PCP - General Physician Sand Caster 03/21/24 Lana Simmons MD [address] [place] [address] [email or web address] Primary Oncologist Medical Oncology 02/14/22 documented as of this encounter Additional Source Comments The information contained in this document represents components of the legal health record. It is not the complete legal health record.[facility]
--- OUTSIDE RECORDS SUMMARY | 2025-04-01 01:38 | XMS_ITS | Encounter Summary ---
Author Organization Formerly [facility] Address [address] [facility] [address] [place] [address] Phone Care Team Providers Care Guillotine Trimmer Name Role Phone Cordelia Hernandez COMPONENT ENGINEER Unavailable [phone] Lana Simmons MD Unavailable Royce Gr MD Primary Care Provider [phone] Stormy Valdovinos Primary Care Provider Encounter Details Date Type Department Care Team (Late st Contact Info) Description 03/19/2024 Transcribe Orders [facility] [address] [place] [address] Vaughn Farah MD [address] [place] [phone] [email or web address] Social History Tobacco Use Types Packs/Day Years [...] as food, clothing, or medical care? No 03/09/2024 In the past 12 months have y ou been in a relationship with a person who hurts, threatens, or tries to control you? No 03/09/2024 Are you denied basic needs s uch as food, clothing, or medical care? No 03/09/2024 In the past 12 months have y ou been in a relationship with a person who hurts, threatens, or tries to control you? No 03/09/2024 Sex and Gender Information Value Date Recorded Sex Assigned at Male 03/23/2018 3:07 PM EDT Legal Sex Male 9:32 PM EDT Gender Identity Male 03/23/2018 3:07 PM EDT Sexual Orientation Straight 09/08/2018 9: 13 AM EDT documented as of this encounter Plan of Treatment Upcoming Encounters Date Type Department Care Team (Late st Contact Info) Description 04/22/2025 2:50 PM EST Appointment [facility] [address] [place] [address] Lana Simmons MD [address] [place] [address] 04/22/2025 4:00 PM EST Infusion [facility] Center at [address] [address] Lana Simmons MD [address] [place] [address] documented as of this encounter Visit Diagnoses Not on filedocumented in this encounter Care Teams Guillotine Trimmer Relationship Specialty Start Date End Date Royce Gr MD [address] [place] [address] [phone] PCP - General Family Medicine 05/09/23 03/20/24 Stormy Valdovinos PA [address] [place] [address] PCP - General Physician Cribber 03/21/24 Cordelia Hernandez NP [address] [place] [address] [email or web address] Nurse Practitioner Medical Oncology 02/14/22 08/12/24 Lana Simmons MD [address] [place] [address] [email or web address] Primary Oncologist Medical Oncology 02/14/22 documented as of this encounter Additional Source Comments The information contained in this document represents components of the legal health record. It is not the complete legal health record.[facility]
--- OUTSIDE RECORDS SUMMARY | 2025-04-01 01:38 | XMS_ITS | Encounter Summary ---
Author Organization [facility] Address [address] [facility] [address] [place] [address] Phone Care Team Providers Care Melter Clerk Name Role Phone Cordelia Hernandez SURVEYOR'S ASSISTANT Unavailable [phone] Lana Simmons MD Unavailable Royce Gr MD Primary Care Provider Pamela Gaviria RN Unavailable Stormy Valdovinos Primary Care Provider Encounter Details Date Type Department Care Team (Late st Contact Info) Description 05/22/2023 Procedure Pass [facility], Ct Scan - [address] [address] Social History Tobacco Use Types Packs/Day Years [...] 2:50 PM EST Appointment [facility] [address] [place] [address] Lana Simmons MD [address] [place] [address] 04/22/2025 4:00 PM EST Infusion [facility] at [facility] [address] [place] [address] Lana Simmons MD [address] [place] [address] documented as of this encounter Visit Diagnoses Not on filedocumented in this encounter Care Teams Melter Clerk Relationship Specialty Start Date End Date Royce Gr MD [address] [place] [phone] PCP - General Family Medicine 05/09/23 03/20/24 Stormy Valdovinos PA [address] [place] [address] PCP - General Physician Recreation Supervisor 03/21/24 Cordelia Hernandez NP [address] [place] [address] Nurse Practitioner Medical Oncology 02/14/22 08/12/24 Lana Simmons MD [address] [place] [address] Primary Oncologist Medical Oncology 02/14/22 Pamela Gaviria, RN [address] [place] [address] [email or web address] [facility] [place] 06/19/23 06/28/23 documented as of this encounter Additional Source Comments The information contained in this document represents components of the legal health record. It is not the complete legal health record.[facility]
--- OUTSIDE RECORDS SUMMARY | 2025-04-01 01:38 | XMS_ITS | Encounter Summary ---
Author Organization [facility] Address [address] [facility] [address] [place] [address] Phone Care Team Providers Care Supervisor Remelt Name Role Phone Cordelia Hernandez DEHYDRATION UNIT OPERATOR Unavailable [phone] Lana Simmons MD Unavailable [phone] Royce Gr MD Primary Care Provider Stormy Valdovinos Primary Care Provider Encounter Details Date Type Department Care Team (Late st Contact Info) Description 12/26/2023 Procedure Pass [facility], Ct Scan - [address] [address] Social History Tobacco Use Types Packs/Day Years [...] 2:50 PM EST Appointment [facility] [address] [place] [address] Lana Simmons MD [address] [place] [address] 04/22/2025 4:00 PM EST Infusion [facility] at [facility] [address] [place] [address] Lana Simmons MD [address] [place] [address] documented as of this encounter Visit Diagnoses Not on filedocumented in this encounter Care Teams Supervisor Remelt Relationship Specialty Start Date End Date Royce Gr MD [address] [place] [phone] [email or web address] PCP - General Family Medicine 05/09/23 03/20/24 Stormy Valdovinos PA [address] [place] [address] PCP - General Physician Injection Wax Molder 03/21/24 Cordelia Hernandez NP [address] [place] [address] Nurse Practitioner Medical Oncology 02/14/22 08/12/24 Lana Simmons MD [address] [place] [address] Primary Oncologist Medical Oncology 9/13/22 documented as of this encounter Additional Source Comments The information contained in this document represents components of the legal health record. It is not the complete legal health record.[facility]
--- OUTSIDE RECORDS SUMMARY | 2025-04-01 01:39 | XMS_ITS | Clinical Summary ---
Author Organization [facility] Address [address] [place] [address] Care Team Providers Care Apparel Fashion Designer Name Role Phone Unavailable Primary Care Provider Unavailabl e Allergies No known active allergies Medications Medication Sig Dispensed Refills Start Date End Date Status escitalopram (LEXAPRO) 5 MG tablet Take 5 mg by mouth daily. 0 10/22/2019 Active lisinopril (PRINIVIL,ZESTRIL) tablet 20 mg Take 20 mg by mouth daily. 0 10/14/2019 Active nicotine (NICODERM CQ) 14 MG/24HR APPLY 1 PATCH TO THE SKIN ONCE A DAY 0 10/22/2019 Active oxyCODONE-acetaminoph en (PERCOCET) 5-325 MG per tablet Take 1 tablet by mouth every 6 (six) hours as needed. 12 tablet 0 11/04/2019 Active Social History Tobacco Use Types Packs/Day Years Used Date Smoking Tobacco: Every Day Smokeless Tobacco: Never Alcohol Use Standard Drinks/Week Comments Yes 0 (1 standard drink = 0.6 oz pur e alcohol) socially Sex and Gender Information Value Date Recorded Sex Assigned at Male 11/03/2019 11:31 PM EDT Gender Identity Not on file Sexual Orientation Not on file Last Filed Vital Signs Vital Sign Reading Time Taken Comments Blood Pressure 167/92 11/03/2019 11:40 PM EDT Pulse 64 11/03/2019 11:40 PM EDT Temperature 36.7 C (98.1 F) 11/03/2019 11:40 PM EDT Respiratory Rate 18 11/03/2019 11:40 PM EDT Oxygen Saturation 99% 11/03/2019 11:40 PM EDT Inhaled Oxygen Concentration - - Weight 121.6 kg (268 lb) 11/03/2019 11:40 PM EDT Height 182.9 cm (6') 11/03/2019 11:40 PM EDT Body Mass Index 36.35 11/03/2019 11:40 PM EDT Plan of Treatment Not on file
[2025-04-01 01:47] VITALS: BP 114/78; PULSE 75; RESP 16; TEMP 36.6; O2SAT 97
[2025-04-01 02:12] LABS: Troponin-I High Sensitivity < 2.7 ng/L (<3.5-35.0)
[2025-04-01 03:18] VITALS: BP 114/78; PULSE 75; RESP 16; TEMP 36.6; O2SAT 97
== END 2025-04-01 06:39 | disposition home or self-care (01) ==
PROVIDERS: Emergency Provider Emergency Medicine
DX: R06.02 Shortness of breath (principal); R11.10 Vomiting, unspecified; D3A.8 Other benign neuroendocrine tumors; Z79.899 Other long term (current) drug therapy
CPT/HCPCS: 36415; 71045; 80048; 80076; 80307; 81003; 82803; 83690; 83735; 84484; 85025; 85379; 85610; 86140; 93005; 96360; 96361; 96372; 99284; J3360

== ENCOUNTER → 2025-04-01 00:11 | Outpatient (BNV) | payer MEDICAID, SELFPAY | PROVIDERS: Emergency Provider Emergency Medicine; Visit Provider Radiology Neuroradiology | DX: R06.02 Shortness of breath (principal) | CPT/HCPCS: 71045 ==

== ENCOUNTER → 2025-04-01 00:15 | Outpatient (BNV) | payer MEDICAID, SELFPAY | PROVIDERS: Emergency Provider Emergency Medicine; Visit Provider Internal Medicine | DX: R06.02 Shortness of breath (principal) | CPT/HCPCS: 93010 ==

== ENCOUNTER 2025-04-01 07:18 | Emergency (ER) | payer MEDICAID, SELFPAY ==
[2025-04-01 07:19] VITALS: BP 129/75; PULSE 79; RESP 20; TEMP 36.8; O2SAT 100; BMI 29.8
--- NOTE | 2025-04-01 07:31 | ED.PSYCH ---
HPI - Psych General Chief Complaint: Psychiatric Symptoms Stated Complaint: anxiety Time Seen by Provider: 04/01/25 07:30 Source: patient Mode of arrival: ambulatory Limitations: no limitations History of Present Illness HPI Narrative: THIS IS A 54 YEARS OLD THE PATIENT WITH A HISTORY OF SUBSTANCE ABUSE INCLUDING ALCOHOL PRESENTED TO THE EMERGENCY DEPARTMENT COMPLAINING OF DEPRESSION AND SI. HE WAS SEEN YESTERDAY HE WAS DISCHARGED HOME RETURN NOW COMPLAINING OF SEVERE ANXIETY AND SI MD complaint: suicidal ideation Onset (ago): day(s) (1) Duration: constant History of same: Yes Relieving factors: none Exacerbating factors: none Context: recent alcohol abuse (YESTERDAY) Associated psychiatric symptoms: depression and suicidal ideation Associated symptoms: denies other symptoms Treatments prior to arrival: none Related Data Home Medications ?Medication ?Instructions ?Recorded ?Confirmed amlodipine 10 mg tablet 10 mg PO DAILY 04/01/25 04/01/25 bupropion HCl 300 mg 24 hr tablet, 300 mg PO DAILY 04/01/25 04/01/25 extended release dextroamphetamine-amphetamine 10 1 tab PO BID 04/01/25 04/01/25 mg tablet escitalopram oxalate 5 mg tablet 5 mg PO DAILY 04/01/25 04/01/25 lisinopril 40 mg tablet 40 mg PO DAILY 04/01/25 04/01/25 Allergies Allergy/AdvReac Type Severity Reaction Status Date / Time No Known Allergies Allergy Verified 04/01/25 07:22 Review of Systems Constitutional: Constitutional: Reports no additional constitutional complaints ENT: Reports system reviewed and no additional complaints, except as documented Psychiatric: Psychiatric: Reports as per HPI [facility] Past Medical History Medical History Chronic abdominal pain Neuroendocrine cancer Social History Social History Alcohol intake: current Alcohol intake frequency: 3 or more drinks per day Smoked in Last 30 Days: Yes Use of substances other than those prescribed or required for medical reasons: Refusing to respond Substance Use Type: Marijuana Advance Directives: No Advance Directives Information Provided: Yes Physical Exam Exam: Exam: MILD DISTRESS CRYING Vital Signs: Vital Signs: Last Vital Signs Temp 98.2 F 04/01/25 07:19 Pulse 79 04/01/25 07:19 Resp 20 04/01/25 07:19 BP 129/75 10/29/25 07:19 Pulse Ox 100 04/01/25 07:19 O2 Del Method Room Air 04/01/25 07:19 BMI result Body Mass Index 29.8 HIS VITAL SIGNS ARE STABLE HIS BLOOD PRESSURE IS 129/75, HEART RATE IS 79 RESPIRATIONS 20 Const: General: cooperative Nutritional Appearance: well nourished Orientation/consciousness: patient oriented x3 Limitations: no limitations HEENT: Head: Yes normal to inspection Ears: hearing grossly normal bilaterally General nose exam: Normal external nose present Face and sinus: Yes normal facial exam Mouth: Normal oral and palatal mucosa present Throat: Yes posterior oropharynx normal Neck: Neck: Yes normal visual inspection Resp: Effort & Inspection: normal respiratory effort Auscultation: clear to auscultation bilaterally Cardio: Jugular venous distension: no JVD Rate: regular rate Rhythm: regular rhythm GI: Inspection: Yes normal to inspection Palpation (GI): Soft to palpation, not firm and nontender Auscultation: normal bowel sounds Skin: General skin exam: no rashes or lesions noted and elasticity normal Neuro: General: patient oriented x3 Psych: Speech and movement: Clear speech present Affect: Labile affect present and Anxious affect present Attitude: cooperative and not belligerent Thought content: Suicidality present Course Reevaluation(s) Reevaluation #1: The patient was evaluated by crisis team he was cleared for discharge Time: 09:51 Medications Administered Discontinued Medications Generic Name Dose Route Start Last Admin Trade Name Freq PRN Reason Stop Dose Admin Lorazepam 1 mg 04/01/25 07:30 04/01/25 07:35 Lorazepam 1 Mg Tablet PO 04/01/25 07:31 1 mg ONCE ONE Administration Ondansetron HCl 4 mg 04/01/25 08:37 04/01/25 08:42 Ondansetron Odt 4 Mg Tab.Rapdis TRANSLINGU 04/01/25 08:38 4 mg ONCE ONE Administration Medical Decision Making Medical Decision Making MDM Narrative: PATIENT IS HERE WITH DEPRESSION ANXIETY WE WILL GO AHEAD AND OBTAIN PSYCH EVALUATION WE WILL CHECK BASELINE BLOOD WORK AND DRUG SCREEN Differential Diagnosis Differential Diagnoses: The differential diagnosis associated with the presentation includes ANXIETY DISORDER/MAJOR DEPRESSION DISORDER/SUBSTANCE ABUSE Admission/Observation Consideration of admission/observation: Escalation of care including admission/observation considered Lab Data 04/01/25 08:40 04/01/25 08:40 Labs: Lab Results 04/01/25 04/01/25 Range/Units 08:40 08:53 WBC 14.2 H (4.8-10.8) X10*3/uL RBC 4.56 L (4.60-5.80) X10*6/uL Hgb 13.7 L (14.0-18.0) g/dl Hct 40.0 L (42.0-52.0) % MCV 87.7 (80.0-98.0) fL MCH 30.0 (27.0-33.0) pg MCHC 34.3 (31.0-36.0) g/dl RDW 12.9 (11.0-16.0) % Plt Count 272 (160-400) X10*3/uL MPV 10.6 (9.4-12.4) fL Immature Gran % (Auto) 0.6 H (0.0-0.4) % Neut % (Auto) 72.1 (45-73) % Lymph % (Auto) 19.8 L (20-40) % [place] % (Auto) 6.1 (2-11) % Eos % (Auto) 0.9 (0-4) % Baso % (Auto) 0.5 (0-2) % Lymph # (Auto) 2.8 (1.2-4.9) X10*3/uL [place] # (Auto) 0.9 (0.1-1.2) X10*3/uL Eos # (Auto) 0.1 (0.0-0.4) X10*3/uL Baso # (Auto) 0.1 (0.0-0.2) X10*3/uL Abs Immat Gran (auto) 0.08 H (0.00-0.03) X10*3/uL Absolute Neuts (auto) 10.2 H (2.0-8.3) x10*3/uL Absolute Nucleated RBC 0.000 (0.0-0.012) X10*3/uL Nucleated RBC % (auto) 0.0 (0.0-0.2) /100WBC Sodium 142 (135-145) mmol/L Potassium 3.5 (3.3-5.1) mmol/L Chloride 109 H (96-108) mmol/L Carbon Dioxide 24 (22-29) mmol/L Anion Gap 13 (12-20) BUN 11 (9-16) mg/dL Creatinine 0.83 (0.5-1.4) mg/dL Estim Creat Clear Calc 125.8 Estimated GFR > 60 Random Glucose 123 H (60-115) mg/dL Calcium 8.9 (8.4-10.2) mg/dL Total Bilirubin 0.6 (0.0-1.0) mg/dL AST 22 (5-37) U/L ALT 13 (0-40) U/L Alkaline Phosphatase 65 (39-117) U/L Total Protein 7.0 (6.5-8.0) g/dL Albumin 4.3 (3.5-5.0) g/dL Urine Color Yellow Urine Appearance Clear Urine pH >= 9.0 (5.0-9.0) Ur Specific [place] 1.015 (1.005-1.025) Urine Protein Negative (Neg-Trace) mg/dL Urine Glucose (UA) Negative (Negative) mg/dL Urine Ketones Negative (Negative) mg/dL Urine Blood Negative (Negative) Urine Nitrite Negative (Negative) Ur Leukocyte Esterase Negative (Negative) Salicylates < 5.0 L (15-30) mg/dL Urine Opiates Screen POSITIVE H (Not Detect) Ur Buprenorphine Scrn Not Detected (Not Detect) ng/mL Ur Oxycodone Screen Not Detected (Not Detect) ng/mL Urine Methadone Screen Not Detected (Not Detect) ng/mL Urine Fentanyl Screen Not Detected (Not Detect) Acetaminophen < 3 (<30) mcg/mL Ur Barbiturates Screen Not Detected (Not Detect) Ur Phencyclidine Scrn Not Detected (Not Detect) Ur Amphetamines Screen Not Detected (Not Detect) U Benzodiazepines Scrn Not Detected (Not Detect) Urine Cocaine Screen Not Detected (Not Detect) U Marijuana (THC) Screen POSITIVE H (Not Detect) Ethyl Alcohol < 10 mg/dL Discharge Plan Discharge Clinical Impression: Depression, Anxiety Patient Disposition: Home, Self-Care Instructions: Depression (ED), Anxiety (ED) Additional Instructions: Follow-up with your primary care physician return if worse Prescriptions: No Action dextroamphetamine-amphetamine 10 mg tablet 1 tab PO BID amlodipine 10 mg tablet 10 mg PO DAILY lisinopril 40 mg tablet 40 mg PO DAILY bupropion HCl 300 mg tablet extended release 24 hr 300 mg PO DAILY escitalopram oxalate 5 mg tablet 5 mg PO DAILY Referrals: Physician,Rivera J [Primary Care Provider, Medical] Interventions: Collin-Suicide Risk Severity Scale Last Done: 04/01/25 07:43 Print Language: Japanese
--- NOTE | 2025-04-01 08:23 | MHC.EDTECH ---
Phlebotomy draw delayed due to patient with care team, and then unable to hold still for venipuncture due to nausea. RN aware.
--- NOTE | 2025-04-01 08:24 | PC.NURSE ---
Pt reporting nausea, intermittently heaving, MD Meyers made aware via tigertext at [id number]
[2025-04-01 08:46] LABS: MANUAL DIFF FLAG NO
[2025-04-01 08:49] LABS: Hematocrit 40.0 % (42.0-52.0); Hemoglobin 13.7 g/dl (14.0-18.0); Imm Gran Abs Auto 0.08 X10*3/uL (0.00-0.03); Imm Gran Pct Auto 0.6 % (0.0-0.4); Lymphocytes Absolute Auto 2.8 X10*3/uL (1.2-4.9); Mean Corpuscular HGB Conc 34.3 g/dl (31.0-36.0); Mean Corpuscular Hemoglobin 30.0 pg (27.0-33.0); Mean Corpuscular Volume 87.7 fL (80.0-98.0); NRBC Abs Auto 0.000 X10*3/uL (0.0-0.012); NRBC Pct Auto 0.0 /100WBC (0.0-0.2); Platelet Count 272 X10*3/uL (160-400); Red Blood Count 4.56 X10*6/uL (4.60-5.80); White Blood Count 14.2 X10*3/uL (4.8-10.8)
[2025-04-01 09:02] LABS: Appearance Urine Clear; Glucose Urine UA Negative (Negative); PH >= 9.0 (5.0-9.0); Specific Gravity - Urine 1.015 (1.005-1.025)
[2025-04-01 09:04] LABS: Acetaminophen LAB < 3 mcg/mL (<30); Alanine Aminotransferase 13 U/L (0-40); Albumin Level 4.3 g/dL (3.5-5.0); Alkaline Phosphatase 65 U/L (39-117); Anion Gap 13 (12-20); Aspartate Amino Transferase 22 U/L (5-37); Blood Urea Nitrogen 11 mg/dL (9-16); Calcium 8.9 mg/dL (8.4-10.2); Carbon Dioxide 24 mmol/L (22-29); Chloride 109 mmol/L (96-108); Creatinine Clr Calc Pharmacy 125.8; Estimated Glomerular Filt Rate > 60; Potassium 3.5 mmol/L (3.3-5.1); Salicylate < 5.0 mg/dL (15-30); Sodium 142 mmol/L (135-145); Total Protein 7.0 g/dL (6.5-8.0)
[2025-04-01 09:11] LABS: Cannabinoid Screen Urine POSITIVE (Not Detect)
[2025-04-01 10:19] VITALS: BP 129/75; PULSE 79; RESP 20; TEMP 36.8; O2SAT 100
--- NOTE | 2025-04-01 11:04 | MHC.CARE ---
Pt has been referred to [facility] for a 7 day alert and follow up
== END 2025-04-01 10:19 | disposition home or self-care (01) ==
PROVIDERS: Emergency Provider Emergency Medicine
DX: F32.A Depression, unspecified (principal); F41.9 Anxiety disorder, unspecified; R45.851 Suicidal ideations
CPT/HCPCS: 36415; 80053; 80143; 80179; 80307; 81003; 85025; 99284; S9485

== ENCOUNTER 2025-04-21 17:48 | Emergency (ER) | payer MEDICAID, SELFPAY ==
[2025-04-21 18:04] VITALS: BP 113/78; PULSE 99; RESP 18; TEMP 36.6; O2SAT 99; BMI 30.5
--- NOTE | 2025-04-21 18:06 | ECG_ITS ---
Test Reason : CP Blood Pressure : */* mmHG Vent. Rate : 87 BPM Atrial Rate : 87 BPM P-R Int : 134 ms QRS Dur : 86 ms QT Int : 388 ms P-R-T Axes : 65 63 52 degrees QTcB Int : 466 ms Normal sinus rhythm Normal ECG When compared with ECG of 01-Apr-2025 00:30, No significant change was found Referred By: Cinthya Li Electronically Signed By: SHANEKA HORTON
[2025-04-21 18:30] VITALS: PULSE 94; RESP 18; TEMP 36.2; O2SAT 99
[2025-04-21 18:39] LABS: MANUAL DIFF FLAG NO
[2025-04-21 18:44] LABS: Hematocrit 41.2 % (42.0-52.0); Hemoglobin 14.3 g/dl (14.0-18.0); Imm Gran Abs Auto 0.09 X10*3/uL (0.00-0.03); Imm Gran Pct Auto 0.6 % (0.0-0.4); Lymphocytes Absolute Auto 3.7 X10*3/uL (1.2-4.9); Mean Corpuscular HGB Conc 34.7 g/dl (31.0-36.0); Mean Corpuscular Hemoglobin 30.1 pg (27.0-33.0); Mean Corpuscular Volume 86.7 fL (80.0-98.0); NRBC Abs Auto 0.000 X10*3/uL (0.0-0.012); NRBC Pct Auto 0.0 /100WBC (0.0-0.2); Platelet Count 291 X10*3/uL (160-400); Red Blood Count 4.75 X10*6/uL (4.60-5.80); White Blood Count 15.2 X10*3/uL (4.8-10.8)
[2025-04-21 19:00] LABS: Alanine Aminotransferase 7 U/L (0-40); Albumin Level 4.8 g/dL (3.5-5.0); Alkaline Phosphatase 75 U/L (39-117); Anion Gap 19 (12-20); Aspartate Amino Transferase 22 U/L (5-37); Blood Urea Nitrogen 12 mg/dL (9-16); Calcium 9.6 mg/dL (8.4-10.2); Carbon Dioxide 19 mmol/L (22-29); Chloride 107 mmol/L (96-108); Creatinine Clr Calc Pharmacy 116.0; Estimated Glomerular Filt Rate > 60; Lipase 16 U/L (8-78); Magnesium 1.9 mg/dL (1.6-2.6); Potassium 3.5 mmol/L (3.3-5.1); Sodium 141 mmol/L (135-145); Total Protein 7.6 g/dL (6.5-8.0)
[2025-04-21 19:08] LABS: Troponin-I High Sensitivity < 2.7 ng/L (<3.5-35.0)
--- NOTE | 2025-04-21 19:08 | ED.ABDPAIN ---
HPI - Abdominal Pain General Chief Complaint: Abdominal Pain Stated Complaint: Stomach Pain Time Seen by Provider: 04/21/25 19:02 Source: patient Mode of arrival: ambulatory Limitations: no limitations History of Present Illness ED Provider: Dr. 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 He states the pain came on suddenly at 03:00 hours in his located in his upper abdomen. He describes as a constant, pressure pain which is greater than 10/10. Patient states that he gets similar pain frequently and gets this pain every 2-3 months. He complained of nausea with several episodes of vomiting. He denied diarrhea. He denied fever, chills, chest pain, shortness of breath, frequency, urgency or dysuria. Related Data Home Medications ?Medication ?Instructions ?Recorded ?Confirmed amlodipine 10 mg tablet 10 mg PO DAILY 04/01/25 04/01/25 bupropion HCl 300 mg 24 hr tablet, 300 mg PO DAILY 04/01/25 04/01/25 extended release dextroamphetamine-amphetamine 10 1 tab PO BID 04/01/25 04/01/25 mg tablet escitalopram oxalate 5 mg tablet 5 mg PO DAILY 04/01/25 04/01/25 lisinopril 40 mg tablet 40 mg PO DAILY 04/01/25 04/01/25 Allergies Allergy/AdvReac Type Severity Reaction Status Date / Time ketamine Allergy Unknown Verified 04/21/25 18:05 Review of Systems Review of Systems Yes all other systems are reviewed and are negative PMFSH Past Medical History Medical History Chronic abdominal pain Neuroendocrine cancer Social History Social History Unable to assess alcohol history related to: Unknown Alcohol intake: current Alcohol intake frequency: 3 or more drinks per day Use of substances other than those prescribed or required for medical reasons: No Substance Use Type: Marijuana Advance Directives: No Advance Directives Information Provided: No Do you have a plan to hurt others: No Plan Physical Exam ED Vital Signs: Vital Signs - 24 hr 04/21/25 18:04 04/21/25 18:30 Temperature 98 F 97.1 F Pulse Rate 99 94 Respiratory Rate 18 18 Blood Pressure 113/78 Pulse Oximetry 99 99 Oxygen Delivery Method Room Air Room Air BMI result Body Mass Index 30.5 Vital signs were normal. Exam: General: Awake, alert , patient appears to be in significant distress secondary to his abdominal pain, patient is rolling around on the stretcher secondary to his pain Head: Normocephalic, atraumatic EENT: PERRL, sclera and conjunctiva are normal, mouth with no erythema or exudates Neck: Supple, no adenopathy Lung: breath sounds symmetric, no wheezing, no rales and no rhonchi Chest: symmetric movement, nontender Heart: regular rate and rhythm, normal S1, S2 no murmurs or rubs Abdomen: soft, moderate to severe diffuse tenderness with no rebound, normoactive bowel sounds Back: no vertebral tenderness, no CVAT Extremities: no deformities, moves all extremities symmetrically, no edema Neuro: Awake, alert, oriented, normal speech Medical Decision Making Medical Decision Making MDM Narrative: 55-year-old male with a 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 He states the pain came on suddenly at 03:00 hours in his located in his upper abdomen. He describes as a constant, pressure pain which is greater than 10/10. Patient states that he gets similar pain frequently and gets this pain every 2-3 months. He complained of nausea with several episodes of vomiting. He denied diarrhea. He denied fever, chills, chest pain, shortness of breath, frequency, urgency or dysuria. vital signs were normal exam revealed moderate to severe diffuse abdominal tenderness with no rebound. Differential diagnosis: Includes but is not limited to Diverticulitis, pancreatitis, gastritis, chronic abdominal pain, anemia, electrolyte abnormalities Course: 20:38 my interpretation patient's laboratory evaluation is as follows: WBC elevated 15,200. bicarb low 19,000. LFTs were normal except for an elevated bilirubin of 1.2. Troponin was less than 2.7. Lipase was normal at 16. The patient was treated with Dilaudid 1 mg IV with Benadryl 50 mg IV with only minimal improvement of his pain. He required a 2nd dose of Dilaudid 2 mg IV to control his pain. that has also given normal saline IV x1 L. patient states that he is feeling back to normal and has no abdominal pain at this time I do not have a clear etiology for his pain but the patient has had similar pain in the past therefore do not think that he needs a CT scan at this time or any further testing. He was given printed and verbal instructions and discharged home. Differential Diagnosis Differential Diagnoses: The differential diagnosis associated with the presentation includes ( See above) Admission/Observation Consideration of admission/observation: Escalation of care including admission/observation considered ( yes) Lab Data MDM Lab Attestation statement: I reviewed the patient's lab results. 04/21/25 18:34 04/21/25 18:34 Labs: Lab Results 04/21/25 Range/Units 18:34 WBC 15.2 H (4.8-10.8) X10*3/uL RBC 4.75 (4.60-5.80) X10*6/uL Hgb 14.3 (14.0-18.0) g/dl Hct 41.2 L (42.0-52.0) % MCV 86.7 (80.0-98.0) fL MCH 30.1 (27.0-33.0) pg MCHC 34.7 (31.0-36.0) g/dl RDW 12.6 (11.0-16.0) % Plt Count 291 (160-400) X10*3/uL MPV 10.9 (9.4-12.4) fL Immature Gran % (Auto) 0.6 H (0.0-0.4) % Neut % (Auto) 65.1 (45-73) % Lymph % (Auto) 24.5 (20-40) % [place] % (Auto) 8.3 (2-11) % Eos % (Auto) 1.0 (0-4) % Baso % (Auto) 0.5 (0-2) % Lymph # (Auto) 3.7 (1.2-4.9) X10*3/uL [place] # (Auto) 1.3 H (0.1-1.2) X10*3/uL Eos # (Auto) 0.2 (0.0-0.4) X10*3/uL Baso # (Auto) 0.1 (0.0-0.2) X10*3/uL Abs Immat Gran (auto) 0.09 H (0.00-0.03) X10*3/uL Absolute Neuts (auto) 9.9 H (2.0-8.3) x10*3/uL Absolute Nucleated RBC 0.000 (0.0-0.012) X10*3/uL Nucleated RBC % (auto) 0.0 (0.0-0.2) /100WBC Sodium 141 (135-145) mmol/L Potassium 3.5 (3.3-5.1) mmol/L Chloride 107 (96-108) mmol/L Carbon Dioxide 19 L (22-29) mmol/L Anion Gap 19 (12-20) BUN 12 (9-16) mg/dL Creatinine 0.91 (0.5-1.4) mg/dL Estim Creat Clear Calc 116.0 Estimated GFR > 60 Random Glucose 106 (60-115) mg/dL Calcium 9.6 D (8.4-10.2) mg/dL Magnesium 1.9 (1.6-2.6) mg/dL Total Bilirubin 1.2 H (0.0-1.0) mg/dL Direct Bilirubin 0.3 (0.0-0.5) mg/dL AST 22 (5-37) U/L ALT 7 (0-40) U/L Alkaline Phosphatase 75 (39-117) U/L Troponin I High Sens < 2.7 (<3.5-35.0) ng/L Total Protein 7.6 (6.5-8.0) g/dL Albumin 4.8 (3.5-5.0) g/dL Lipase 16 (8-78) U/L Ethyl Alcohol < 10 mg/dL Chronic Conditions Patient?s care impacted by: Other ( carcinoid tumor) Medications Administered Discontinued Medications Generic Name Dose Route Start Last Admin Trade Name Freq PRN Reason Stop Dose Admin Diphenhydramine HCl 50 mg 04/21/25 19:07 04/21/25 19:15 Diphenhydramine Hcl 50 Mg/Ml Vial IVPUSH 04/21/25 19:08 50 mg ONCE STA Administration Hydromorphone HCl 1 mg 04/21/25 19:07 04/21/25 19:15 Hydromorphone Hcl 1 Mg/Ml Syringe IVPUSH 04/21/25 19:08 1 mg ONCE STA Administration Protocol Hydromorphone HCl 2 mg 04/21/25 20:02 04/21/25 20:13 Hydromorphone Hcl 2 Mg/Ml Vial IVPUSH 04/21/25 20:03 2 mg ONCE ONE Administration Protocol Sodium Chloride 1,000 mls @ 999 mls/hr 04/21/25 19:07 04/21/25 19:15 Ns IV 04/21/25 20:07 999 mls/hr .Q1H1M STA Administration Discharge Plan Discharge Clinical Impression: Abdominal pain Qualifiers: Abdominal location: generalized Qualified Code(s): R10.84 - Generalized abdominal pain Patient Disposition: Home, Self-Care Additional Instructions: Your blood work was normal. You were treated with Dilaudid 1 mg IV, Dilaudid 2 mg IV, and Benadryl 50 mg IV. At this time I do not have a clear cause for your pain. Continue taking medications as prescribed by your providers. Follow-up with your doctor in 2 days. Please return to the emergency department if your symptoms get worse or if you develop any symptoms that are concerning to you. Prescriptions: No Action dextroamphetamine-amphetamine 10 mg tablet 1 tab PO BID amlodipine 10 mg tablet 10 mg PO DAILY lisinopril 40 mg tablet 40 mg PO DAILY bupropion HCl 300 mg tablet extended release 24 hr 300 mg PO DAILY escitalopram oxalate 5 mg tablet 5 mg PO DAILY Print Language: Danish
--- NOTE | 2025-04-21 19:25 | PC.NURSE ---
assumed care of pt, pain 10/ abdominal, pt yelling out in pain, provider at bedside. Pt medicated per AUG.
--- NOTE | 2025-04-21 19:47 | PC.NURSE ---
pt reports pain 8/10, provider advised, awaiting new orders.
--- NOTE | 2025-04-21 20:19 | PC.NURSE ---
pt medicated per MAR for pain.
[2025-04-21 20:50] VITALS: BP 136/80; PULSE 95; RESP 20; TEMP 36.8; O2SAT 98
[2025-04-21 20:59] VITALS: BP 136/80; PULSE 95; RESP 20; TEMP 36.8; O2SAT 98
[2025-04-21 21:11] LABS: Appearance Urine Clear; Glucose Urine UA Negative (Negative); PH 7.5 (5.0-9.0); Specific Gravity - Urine 1.015 (1.005-1.025)
[2025-04-21 21:22] LABS: Cannabinoid Screen Urine POSITIVE (Not Detect)
--- OUTSIDE RECORDS SUMMARY | 2025-04-22 13:57 | XMS_ITS | Encounter Summary ---
Author Organization [facility] Address [address] [facility] [address] [place] [address] Phone Care Team Providers Care Hvac Installer Name Role Phone Everett Carter Primary Care Provider [phone] Everton Nation MD Unavailable + Sarah Reagan MD Unavailable Royce Gr MD Unavailable [phone] Stormy Valdovinos Primary Care Provider [phone] Elver Gomez MD Unavailable [phone] Royce Gr MD Unavailable [phone] Lana Simmons MD Unavailable [phone] Sarah Reagan MD Unavailable Elver Gomez MD Unavailable [phone] Cordelia Hernandez EDUCATION RN Unavailable [phone] Lana Simmons MD Unavailable [phone] Royce Gr MD Primary Care Provider [phone] Pamela Gaviria RN Unavailable Stormy Valdovinos Primary Care Provider [phone] Royce Gr MD Unavailable [phone] Encounter Details Date Type Department Care Team (Latest Contact Info) Description 09/26/2018 Transcribe Orders [facility] [address] [address] Ange Naqvi DO [address] [place] [address] [email or web address] Screening for unspecified condition (Primary Dx) [...] Care Team (Late st Contact Info) Description 03/25/2025 Procedure Pass [facility], Ct Scan - [address] [address] 04/24/2025 2:20 PM EST Blood Draw [facility] [address] [address] 04/24/2025 3:20 PM EST Infusion [facility] at [address] [address] Lana Simmons MD [address] [place] [address] Yisel Kincaid RN [address] [place] [address] 05/22/2025 2:10 PM EST Blood Draw [facility] [address] [address] 05/22/2025 3:20 PM EST Infusion [facility] at [address] [address] Yisel Kincaid RN [address] [place] [address] 05/25/2025 1:30 PM EST Appointment [facility], Ct Scan - [address] [address] Lana Simmons MD [address] [place] [address] [email or web address] 06/19/2025 8:20 AM EST Blood Draw [facility] [address] [place] [address] 06/19/2025 9:30 AM EST Office Visit [facility] at [address] [address] Lana Simmons MD [address] [place] [address] [email or web address] 06/19/2025 10:20 AM EST Infusion [facility] at [address] [address] documented as of this encounter Results * Chemistry Hold (09/27/2018 12:04 PM EDT) Blood 09/27/2018 12:0 4 PM EDT 09/27/2018 12:15 PM EDT [facility] LAB BLOOD ORDERABLES Final Result Performing Organization Address City/State/[facility] Co de Phone Number [address] [address] documented in this encounter Visit Diagnoses Diagnosis Screening for unspecified condition- Primary documented in this encounter Care Teams Hvac Installer Relationship Specialty Start Date End Date Everett Carter PA [facility] [address] [address] [email or web address] PCP - General Unknown Provider Specialty 04/09/18 11/29/20 Stormy Valdovinos PA [address] [place] [address] PCP - General 11/30/20 05/08/23 Royce Gr MD [address] [place] [address] [email or web address] PCP - General Family Medicine 05/09/23 03/20/24 Stormy Valdovinos PA [address] [place] [address] PCP - General Physician Metal Tank Builder 03/21/24 Everton Nation MD [address] [place] [address] [email or web address] Insurance Assigned Provider 09/07/18 05/09/20 Sarah Reagan MD [address] [place] [address] [email or web address] Primary Oncologist Hematology and Oncology 03/31/20 06/26/21 Ryoce Gr MD [address] [place] [address] [email or web address] Insurance Assigned Provider 05/09/20 02/12/21 Elver Gomez MD [address] [place] [address] [email or web address] Insurance Assigned Provider 02/12/21 07/10/21 Royce Gr MD [address] [place] [address] [email or web address] Insurance Assigned Provider 07/10/21 02/11/22 Lana Simmons MD [address] [place] [address] [email or web address] Primary Oncologist Medical Oncology 07/22/21 02/13/22 Sarah Reagan MD [address] [place] [address] [email or web address] LMR Provider Hematology and Oncology 07/22/21 05/14/22 Elver Gomez MD [address] [place] [address] Insurance Assigned Provider 02/11/22 07/08/22 Cordelia Hernandez NP [address] [place] [address] Nurse Practitioner Medical Oncology 02/14/22 08/12/24 Lana Simmons MD [address] [place] [address] Primary Oncologist Medical Oncology 02/14/22 Pamela Gaviria, RN [address] [place] [address] [facility] Usps Letter Carrier 06/19/23 06/28/23 Royce Gr MD [address] [place] [address] [email or web address] Insurance Assigned Provider 04/18/25 documented as of this encounter Additional Source Comments The information contained in this document represents components of the legal health record. It is not the complete legal health record.[facility]
--- OUTSIDE RECORDS SUMMARY | 2025-04-22 13:57 | XMS_ITS | Encounter Summary ---
Author Organization [facility] Address [address] [facility] [address] [place] [address] Phone Care Team Providers Care Bricklayer Apprentice Name Role Phone Cordelia Hernandez MARINE SURVEYOR Unavailable [phone] Lana Simmons MD Unavailable [phone] Royce Gr MD Primary Care Provider Stormy Valdovinos Primary Care Provider [phone] Royce Gr MD Unavailable [phone] Encounter Details Date Type Department Care Team (Late st Contact Info) Description 12/26/2023 Procedure Pass [facility], Ct Scan - [address] [address] Social History Tobacco Use Types Packs/Day Years [...] 3:07 PM EDT Sexual Orientation Straight 09/08/2018 9 :13 AM EDT documented as of this encounter Plan of Treatment Upcoming Encounters Date Type Department Care Team (Late st Contact Info) Description 03/25/2025 Procedure Pass [facility], [place] Scan [address] [address] 04/24/2025 2:20 PM EST Blood Draw [facility] [address] [address] 04/24/2025 3:20 PM EST Infusion [facility] at [address] [address] Lana Simmons MD [address] [place] [address] Yisel Kincaid RN [address] [place] [address] 05/22/2025 2:10 PM EST Blood Draw [facility] [address] [address] 05/22/2025 3:20 PM EST Infusion [facility] at [address] [address] Yisel Kincaid RN [address] [place] [address] 05/25/2025 1:30 PM EST Appointment [facility], Ct Scan [address] [address] Lana Simmons MD [address] [place] [address] 06/19/2025 8:20 AM EST Blood Draw [facility] [address] [address] 06/19/2025 9:30 AM EST Office Visit [facility] at [address] [address] Lana Simmons MD 30 [place] [address] [email or web address] 06/19/2025 10:20 AM EST Infusion [facility] at [facility] [address] [place] [address] documented as of this encounter Visit Diagnoses Not on filedocumented in this encounter Care Teams Bricklayer Apprentice Relationship Specialty Start Date End Date Royce Gr MD [address] [place] [address] [email or web address] PCP - General Family Medicine 05/09/23 03/20/24 Stormy Valdovinos PA [address] [place] [address] PCP - General Physician Inspector Rag Sorting 03/21/24 Cordelia Hernandez NP [address] [place] [address] [email or web address] Nurse Practitioner Medical Oncology 02/14/22 08/12/24 Lana Simmons MD [address] [place] [email or web address] Primary Oncologist Medical Oncology 02/14/22 Royce Gr MD [address] [place] [address] [email or web address] Insurance Assigned Provider 04/18/25 documented as of this encounter Additional Source Comments The information contained in this document represents components of the legal health record. It is not the complete legal health record.[facility]
--- OUTSIDE RECORDS SUMMARY | 2025-04-22 13:57 | XMS_ITS | Encounter Summary ---
Author Organization [facility] Address [address] [facility] [address] [place] [address] Phone Care Team Providers Care Director Museum [employer] Name Role Phone Cordelia Hernandez AIRPORT UTILITY WORKER Unavailable [phone] Lana Simmons MD Unavailable [phone] Royce Gr MD Primary Care Provider Stormy Valdovinos Primary Care Provider [phone] Royce Gr MD Unavailable [phone] Encounter Details Date Type Department Care Team (Late st Contact Info) Description 12/26/2023 Procedure Pass [facility], Ct Scan - [address] [address] Social History Tobacco Use Types Packs/Day Years [...] st Contact Info) Description 03/25/2025 Procedure Pass [facility], [place] Scan [address] [address] 04/24/2025 2:20 PM EST Blood Draw [facility] [address] [address] 04/24/2025 3:20 PM EST Infusion [facility] at [address] [address] Lana Simmons MD [address] [place] [address] Yisel Kincaid RN [address] [place] [address] 05/22/2025 2:10 PM EST Blood Draw [facility] [address] [address] 05/22/2025 3:20 PM EST Infusion [facility] at [address] [address] Yisel Kincaid RN [address] [place] [address] 05/25/2025 1:30 PM EST Appointment [facility], Ct Scan [address] [address] Lana Simmons MD [address] [place] [address] 06/19/2025 8:20 AM EST Blood Draw [facility] [address] [address] 06/19/2025 9:30 AM EST Office Visit [facility] at [address] [address] Lana Simmons MD 30 [place] [address] 06/19/2025 10:20 AM EST Infusion [facility] at [facility] [place] [address] [place] [address] documented as of this encounter Visit Diagnoses Not on filedocumented in this encounter Care Teams Director Museum [employer] Zoo Relationship Specialty Start Date End Date Royce Gr MD [address] [place] [address] [email or web address] PCP - General Family Medicine 05/09/23 03/20/24 Stormy Valdovinos PA [address] [place] [address] PCP - General Physician Sr. Manager 03/21/24 Cordelia Hernandez NP [address] [place] [address] [email or web address] Nurse Practitioner Medical Oncology 02/14/22 08/12/24 Lana Simmons MD [address] [place] [address] Primary Oncologist Medical Oncology 02/14/22 Royce Gr MD [address] [place] [address] [email or web address] Insurance Assigned Provider 04/18/25 documented as of this encounter Additional Source Comments The information contained in this document represents components of the legal health record. It is not the complete legal health record.[facility]
--- OUTSIDE RECORDS SUMMARY | 2025-04-22 13:58 | XMS_ITS | Encounter Summary ---
Author Organization [facility] Address [address] [facility] [address] [place] [address] Phone Care Team Providers Care Associate Faculty Name Role Phone Cordelia Hernandez RECEIVING ROOM CLERK Unavailable [phone] Lana Simmons MD Unavailable Royce Gr MD Primary Care Provider Stormy Valdovinos Primary Care Provider [phone] Royce Gr MD Unavailable Encounter Details Date Type Department Care Team (Late st Contact Info) Description 03/19/2024 Transcribe Orders [facility] [address] [place] [address] Vaughn Farah MD [address] [place] [address] [email or web address] Social History Tobacco Use Types Packs/Day Years [...] st Contact Info) Description 03/25/2025 Procedure Pass [facility], Ct Scan - [address] [address] 04/24/2025 2:20 PM EST Blood Draw [facility] [address] [address] 04/24/2025 3:20 PM EST Infusion [facility] at [address] [address] Lana Simmons MD [address] [place] [phone] [email or web address] Yisel Kincaid RN [address] [place] [address] 05/22/2025 2:10 PM EST Blood Draw [facility] [address] [address] 05/22/2025 3:20 PM EST Infusion [facility] at [address] [address] Yisel Kincaid RN [address] [place] [address] [email or web address] 05/25/2025 1:30 PM EST Appointment [facility], Ct Scan - [address] [address] Lana Simmons MD [address] [place] [address] [email or web address] 06/19/2025 8:20 AM EST Blood Draw [facility] [address] [place] [address] 06/19/2025 9:30 AM EST Office Visit [facility] at [address] [address] Lana Simmons MD [address] [place] [address] [email or web address] 06/19/2025 10:20 AM EST Infusion [facility] at [address] [address] documented as of this encounter Visit Diagnoses Not on filedocumented in this encounter Care Teams Associate Faculty Relationship Specialty Start Date End Date Royce Gr MD [address] [place] [address] [email or web address] PCP - General Family Medicine 05/09/23 03/20/24 Stormy Valdovinos PA [address] [place] [address] PCP - General Physician Neck Band Operator 03/21/24 Cordelia Hernandez NP [address] [place] [address] [email or web address] Nurse Practitioner Medical Oncology 02/14/22 08/12/24 Lana Simmons MD [address] [place] [address] [email or web address] Primary Oncologist Medical Oncology 02/14/22 Royce Gr MD [address] [place] [address] [email or web address] Insurance Assigned Provider 04/18/25 documented as of this encounter Additional Source Comments The information contained in this document represents components of the legal health record. It is not the complete legal health record.[facility]
--- OUTSIDE RECORDS SUMMARY | 2025-04-22 13:58 | XMS_ITS | Encounter Summary ---
Author Organization [facility] Address [address] [place] [address] [place] [address] Phone Care Team Providers Care Specifications Checker Name Role Phone Pcp, Not Required Primary Care Provider Unavaila Everett Pham Primary Care Provider Everton Nation MD Unavailable + Sarah Reagan MD Unavailable Royce Gr MD Unavailable [phone] Stormy Valdovinos Primary Care Provider [phone] Elver Gomez MD Unavailable [phone] Royce Gr MD Unavailable [phone] Lana Simmons MD Unavailable [phone] Sarah Reagan MD Unavailable Elver Gomez MD Unavailable [phone] Cordelia Hernandez NP Unavailable [phone] Lana Simmons MD Unavailable [phone] Royce Gr MD Primary Care Provider [phone] Pamela Gaviria RN Unavailable Stormy Valdovinos Primary Care Provider [phone] Royce Gr MD Unavailable Encounter Details Date Type Department Care Team (Late st Contact Info) Description 04/08/2018 Procedure Pass [facility] Endoscopy Admitting Dept Virtual Department [address] [place] [address] Social History Tobacco Use Types Packs/Day Years [...] st Contact Info) Description 03/25/2025 Procedure Pass [address] [address] 04/24/2025 2:20 PM EST Blood Draw [facility] Phleb [address] [address] 04/24/2025 3:20 PM EST Infusion [facility] at [address] [address] Lana Simmons MD [address] [place] [address] Yisel Kincaid RN [address] [place] [address] 05/22/2025 2:10 PM EST Blood Draw [facility] Phleb [address] [address] 05/22/2025 3:20 PM EST Infusion [facility] at [address] [address] Yisel Kincaid RN [address] [place] [address] 05/25/2025 1:30 PM EST Appointment [address] [address] Lana Simmons MD [address] [place] [address] 06/19/2025 8:20 AM EST Blood Draw [facility] [address] [place] [address] 06/19/2025 9:30 AM EST Office Visit [facility] at [address] [address] Lana Simmons MD [address] [place] [address] 06/19/2025 10:20 AM EST Infusion [facility] at [address] [address] documented as of this encounter Visit Diagnoses Not on filedocumented in this encounter Care Teams Specifications Checker Relationship Specialty Start Date End Date Pcp, Not Required [address] [place] [address] PCP - General 03/23/18 04/08/18 Everett Carter PA [address] [place] [phone] [email or web address] PCP - General Unknown Provider Specialty 04/09/18 11/29/20 Stormy Valdovinos PA [address] [place] [address] PCP - General 11/30/20 05/08/23 Royce Gr MD [address] [place] [address] [email or web address] PCP - General Family Medicine 05/09/23 03/20/24 Stormy Valdovinos PA [address] [place] [address] PCP - General Physician Retail Mortgage Banker 03/21/24 Everton Nation MD [address] [place] [address] [email or web address] Insurance Assigned Provider 09/07/18 05/09/20 Sarah Reagan MD [address] [place] [address] [email or web address] Primary Oncologist Hematology and Oncology 03/31/20 06/26/21 Royce Gr MD [address] [place] [address] [email or web address] Insurance Assigned Provider 05/09/20 02/12/21 Elver Gomez MD [address] [place] [address] [email or web address] Insurance Assigned Provider 02/12/21 07/10/21 Royce Gr MD [address] [place] [address] [email or web address] Insurance Assigned Provider 07/10/21 02/11/22 Lana Simmons MD [address] [place] [address] [email or web address] Primary Oncologist Medical Oncology 07/22/21 02/13/22 Sarah Reagan MD [address] [place] [address] [email or web address] Historical LMR Provider Hematology and Oncology 07/22/21 05/14/22 Elver Gomez MD [address] [place] [address] Insurance Assigned Provider 02/11/22 07/08/22 Cordelia Hernandez NP [address] [place] [address] Nurse Practitioner Medical Oncology 02/14/22 08/12/24 Lana Simmons MD [address] [place] [address] Primary Oncologist Medical Oncology 02/14/22 Pamela Gaviria, RN [address] [place] [address] PHCM Delivery Engineer 06/19/23 06/28/23 Royce Gr MD [address] [place] [address] Insurance Assigned Provider 04/18/25 documented as of this encounter Additional Source Comments The information contained in this document represents components of the legal health record. It is not the complete legal health record.[facility]
--- OUTSIDE RECORDS SUMMARY | 2025-04-22 13:58 | XMS_ITS | Encounter Summary ---
Author Organization [facility] Address [address] [facility] [address] [place] [address] Phone Care Team Providers Care Control Systems Specialist Name Role Phone Eevrett Carter Primary Care Provider [phone] Everton Nation MD Unavailable + Sarah Reagan MD Unavailable Royce Gr MD Unavailable [phone] Stormy Valdovinos Primary Care Provider [phone] Elver Gomez MD Unavailable [phone] Royce Gr MD Unavailable [phone] Lana Simmons MD Unavailable Sarah Reagan MD Unavailable Elver Gomez MD Unavailable [phone] Cordelia Hernandez TOOL AND DIE REPAIR Unavailable [phone] Lana Simmons MD Unavailable Royce Gr MD Primary Care Provider [phone] Pamela Gaviria RN Unavailable Stormy Valdovinos Primary Care Provider [phone] Royce Gr MD Unavailable [phone] Encounter Details Date Type Department Care Team (Late st Contact Info) Description 04/15/2020 Procedure Pass [address] [address] Social History Tobacco Use Types Packs/Day Years [...] st Contact Info) Description 03/25/2025 Procedure Pass [address] [address] 04/24/2025 2:20 PM EST Blood Draw [facility]leb [address] [address] 04/24/2025 3:20 PM EST Infusion [facility] at [address] [address] Lana Simmons MD [address] [place] [address] [email or web address] Yisel Kincaid RN [address] [place] [address] 05/22/2025 2:10 PM EST Blood Draw [facility]leb [address] [address] 05/22/2025 3:20 PM EST Infusion [facility] at [address] [address] Yisel Kincaid RN [address] [place] [address] 05/25/2025 1:30 PM EST Appointment [address] [address] Lana Simmons MD [address] [place] [address] 06/19/2025 8:20 AM EST Blood Draw [facility] Phleb [address] [address] 06/19/2025 9:30 AM EST Office Visit [facility] at [address] [address] Lana Smimons MD [address] [place] [address] [email or web address] 06/19/2025 10:20 AM EST Infusion [facility] at [address] [address] documented as of this encounter Visit Diagnoses Not on filedocumented in this encounter Care Teams Control Systems Specialist Relationship Specialty Start Date End Date Everett Carter PA [address] [place] [address] [email or web address] PCP - General Unknown Provider Specialty 04/09/18 11/29/20 Stormy Valdovinos PA [address] [place] [address] PCP - General 11/30/20 05/08/23 Royce Gr MD [address] [place] [address] [email or web address] PCP - General Family Medicine 05/09/23 03/20/24 Stormy Valdovinos PA [address] [place] [address] PCP - General Physician Shield Cleaner 03/21/24 Everton Nation MD [address] [place] [address] [email or web address] Insurance Assigned Provider 09/07/18 05/09/20 Sarah Reagan MD [address] [place] [phone] [email or web address] Primary Oncologist Hematology and Oncology 03/31/20 06/26/21 Royce Gr MD [address] [place] [address] [email or web address] Insurance Assigned Provider 05/09/20 02/12/21 Elver Gomez MD [address] [place] [address] [email or web address] Insurance Assigned Provider 02/12/21 07/10/21 Royce Gr MD [address] [place] [address] [email or web address] Insurance Assigned Provider 07/10/21 02/11/22 Lana Simmons MD [address] [place] [address] [email or web address] Primary Oncologist Medical Oncology 07/22/21 02/13/22 Sarah Reagan MD [address] [place] [address] [email or web address] Historical [email or web address] Provider Hematology and Oncology 07/22/21 05/14/22 Elver Gomez MD [address] [place] [address] [email or web address] Insurance Assigned Provider 02/11/22 07/08/22 Cordelia Hernandez NP [address], [place] [address] [email or web address] Nurse Practitioner Medical Oncology 02/14/22 08/12/24 Lana Simmons MD [address] [place] [address] [email or web address] Primary Oncologist Medical Oncology 02/14/22 Pamela Gaviria, VIJAY [address] [place] [address] [email or web address] PHC Carcass Washer 06/19/23 06/28/23 Royce Gr MD [address] [place] [address] [email or web address] Insurance Assigned Provider 04/18/25 documented as of this encounter Additional Source Comments The information contained in this document represents components of the legal health record. It is not the complete legal health record.[facility]
--- OUTSIDE RECORDS SUMMARY | 2025-04-22 13:58 | XMS_ITS | Encounter Summary ---
Author Organization [facility] Address [address] [facility] [address] [place] [address] Phone Care Team Providers Care Professional Programmer Analyst Name Role Phone Everett Carter Primary Care Provider [phone] Everton Nation MD Unavailable + Sarah Reagan MD Unavailable Royce Gr MD Unavailable [phone] Stormy Valdovinos Primary Care Provider [phone] Elver Gomez MD Unavailable [phone] Royce Gr MD Unavailable [phone] Lana Simmons MD Unavailable Sarah Reagan MD Unavailable Elver Gomez MD Unavailable [phone] Cordelia Hernandez FULL DECATOR OPERATOR Unavailable [phone] Lana Simmons MD Unavailable [phone] Royce Gr MD Primary Care Provider [phone] Pamela Gaviria RN Unavailable Stormy Valdovinos Primary Care Provider [phone] Royce Gr MD Unavailable [phone] Encounter Details Date Type Department Care Team (Late st Contact Info) Description 04/15/2020 Procedure Pass [address] [address] Social History Tobacco Use Types Packs/Day Years [...] st Contact Info) Description 03/25/2025 Procedure Pass [address] [address] 04/24/2025 2:20 PM EST Blood Draw [facility]leb [address] [address] 04/24/2025 3:20 PM EST Infusion [facility] at [address] [address] Lana Simmons MD [address] [place] [address] Yisel Kincaid RN [address] [place] [address] 05/22/2025 2:10 PM EST Blood Draw [facility]leb [address] [address] 05/22/2025 3:20 PM EST Infusion [facility] at [address] [address] Yisel Kincaid RN [address] [place] [address] 05/25/2025 1:30 PM EST Appointment [address] [address] Lana Simmons MD [address] [place] [address] 06/19/2025 8:20 AM EST Blood Draw [facility] Phleb [address] [address] 06/19/2025 9:30 AM EST Office Visit [facility] at [address] [address] Lana Simmons MD [address] [place] [address] 06/19/2025 10:20 AM EST Infusion [facility] at [address] [address] documented as of this encounter Visit Diagnoses Not on filedocumented in this encounter Care Teams Professional Programmer Analyst Relationship Specialty Start Date End Date Everett Carter PA [address] [place] [address] [email or web address] PCP - General Unknown Provider Specialty 04/09/18 11/29/20 Stormy Valdovinos PA [address] [place] [address] PCP - General 11/30/20 05/08/23 Royce Gr MD [address] [place] [address] [email or web address] PCP - General Family Medicine 05/09/23 03/20/24 Stormy Valdovinos PA [address] [place] [address] PCP - General Physician Unified Communications Architect 03/21/24 Everton Nation MD [address] [place] [address] [email or web address] Insurance Assigned Provider 09/07/18 05/09/20 Sarah Reagan MD [address] [place] [address] [email or web address] Primary Oncologist Hematology and Oncology 03/31/20 06/26/21 Royce Gr MD [address] [place] [address] [email or web address] Insurance Assigned Provider 05/09/20 02/12/21 Elver Gomez MD [address] [place] [address] [email or web address] Insurance Assigned Provider 02/12/21 07/10/21 Royce Gr MD [address] [place] [address] [email or web address] Insurance Assigned Provider 07/10/21 02/11/22 Lana Simmons MD [address] [place] [address] [email or web address] Primary Oncologist Medical Oncology 07/22/21 02/13/22 Sarah Reagan MD [address] [place] [address] [email or web address] Historical LMR Provider Hematology and Oncology 07/22/21 05/14/22 Elver Gomez MD [address] [place] [address] [email or web address] Insurance Assigned Provider 02/11/22 07/08/22 Cordelia Hernandez NP [address], [place] [address] [email or web address] Nurse Practitioner Medical Oncology 02/14/22 08/12/24 Lana Simmons MD [address] [place] [address] [email or web address] Primary Oncologist Medical Oncology 02/14/22 Pamela Gaviria, VIJAY [address] [place] [address] [email or web address] PHC Pulverizing And Sifting Operator 06/19/23 06/28/23 Royce Gr MD [address] [place] [address] [email or web address] Insurance Assigned Provider 04/18/25 documented as of this encounter Additional Source Comments The information contained in this document represents components of the legal health record. It is not the complete legal health record.[facility]
--- OUTSIDE RECORDS SUMMARY | 2025-04-22 13:58 | XMS_ITS | Encounter Summary ---
Author Organization [facility] Address [address] [facility] [address] [place] [address] Phone Care Team Providers Care Bird Keeper Name Role Phone Everett Carter Primary Care Provider [phone] Everton Nation MD Unavailable + Sarah Reagan MD Unavailable Royce Gr MD Unavailable [phone] Stormy Valdovinos Primary Care Provider [phone] Elver Gomez MD Unavailable [phone] Royce Gr MD Unavailable [phone] Lana Simmons MD Unavailable [phone] Sarah Reagan MD Unavailable Elver Gomez MD Unavailable [phone] Cordelia Hernandez HOUSEKEEPING DEPARTMENT WORKER Unavailable [phone] Lana Simmons MD Unavailable [phone] Royce Gr MD Primary Care Provider [phone] Pamela Gaviria RN Unavailable Stormy Valdovinos Primary Care Provider [phone] Royce Gr MD Unavailable [phone] Encounter Details Date Type Department Care Team (Latest Contact Info) Description 11/01/2018 Transcribe Orders [facility] Phleb [address] [address] Ange Naqvi DO [address] [place] [address] [email or web address] Screening for unspecified condition (Primary Dx) [...] Procedure Pass [facility], Ct Scan - [address] [address] 04/24/2025 2:20 PM EST Blood Draw [facility] Phleb [address] [address] 04/24/2025 3:20 PM EST Infusion [facility] at [address] [address] Lana Simmons MD [address] [place] [address] Yisel Kincaid RN [address] [place] [address] 05/22/2025 2:10 PM EST Blood Draw [facility] Phleb [address] [address] 05/22/2025 3:20 PM EST Infusion [facility] at [address] [address] Yisel Kincaid RN [address] [place] [address] 05/25/2025 1:30 PM EST Appointment [facility], Ct Scan - [address] [address] Lana Simmons MD [address] [place] [address] [email or web address] 06/19/2025 8:20 AM EST Blood Draw [facility] [address] [place] [address] 06/19/2025 9:30 AM EST Office Visit [facility] at [address] [address] Lana Simmons MD [address] [place] [address] [email or web address] 06/19/2025 10:20 AM EST Infusion [facility] at [address] [address] documented as of this encounter Visit Diagnoses Diagnosis Screening for unspecified condition- Primary documented in this encounter Care Teams Bird Keeper Relationship Specialty Start Date End Date Everett Carter PA [address] [place] [address] [email or web address] PCP - General Unknown Provider Specialty 04/09/18 11/29/20 Stormy Valdovinos PA [address] [place] [address] PCP - General 11/30/20 05/08/23 Royce Gr MD [address] [place] [address] [email or web address] PCP - General Family Medicine 05/09/23 03/20/24 Stormy Valdovinos PA [address] [place] [address] PCP - General Physician Remedy Developer 03/21/24 Everton Nation MD [address] [place] [address] [email or web address] Insurance Assigned Provider 09/07/18 05/09/20 Sarah Reagan MD [address] [place] [address] [email or web address] Primary Oncologist Hematology and Oncology 03/31/20 06/26/21 Royce Gr MD [address] [place] [address] [email or web address] Insurance Assigned Provider 05/09/20 02/12/21 Elver Gomez MD [address] [place] [address] [email or web address] Insurance Assigned Provider 02/12/21 07/10/21 Royce Gr MD [address] [place] [address] [email or web address] Insurance Assigned Provider 07/10/21 02/11/22 Lana Simmons MD [address] [place] [phone] [email or web address] Primary Oncologist Medical Oncology 07/22/21 02/13/22 Sarah Reagan MD [address] [place] [address] [email or web address] Historical LMR Provider Hematology and Oncology 07/22/21 05/14/22 Elver Gomez MD [address] [place] [address] Insurance Assigned Provider 02/11/22 07/08/22 Cordelia Hernandez NP [address] [place] [address] Nurse Practitioner Medical Oncology 02/14/22 08/12/24 Lana Simmons MD [address] [place] [address] Primary Oncologist Medical Oncology 02/14/22 Pamela Gaviria, VIJAY [address] [place] [address] PHCM Reproducer 06/19/23 06/28/23 Royce Gr MD [address] [place] [address] Insurance Assigned Provider 04/18/25 documented as of this encounter Additional Source Comments The information contained in this document represents components of the legal health record. It is not the complete legal health record.[facility]
--- OUTSIDE RECORDS SUMMARY | 2025-04-22 13:58 | XMS_ITS | Encounter Summary ---
Author Organization [facility] Address [address] [facility] [address] [place] [address] Phone Care Team Providers Care Director Of Critical Care Name Role Phone Everett Carter Primary Care Provider [phone] Everton Nation MD Unavailable + Sarah Reagan MD Unavailable Royce Gr MD Unavailable [phone] Stormy Valdovinos Primary Care Provider [phone] Elver Gomez MD Unavailable [phone] Royce Gr MD Unavailable Lana Simmons MD Unavailable [phone] Sarah Reagan MD Unavailable Elver Gomez MD Unavailable [phone] Cordelia Hernandez MEDICAL MICROBIOLOGIST Unavailable [phone] Lana Simmons MD Unavailable [phone] Royce Gr MD Primary Care Provider [phone] Pamela Gaviria RN Unavailable Stormy Valdovinos Primary Care Provider [phone] Royce Gr MD Unavailable [phone] Encounter Details Date Type Department Care Team (Latest Contact Info) Description 08/28/2018 Transcribe Orders [facility] [address] [address] Ange Naqvi DO [address] [place] [address] [email or web address] Screening for unspecified condition (Primary Dx) [...] st Contact Info) Description 03/25/2025 Procedure Pass [facility], Ct Scan - [address] [address] 04/24/2025 2:20 PM EST Blood Draw [facility] Phleb [address] [address] 04/24/2025 3:20 PM EST Infusion [facility] at [address] [address] Lana Simmons MD [address] [place] [address] Yisel Kincaid RN [address] [place] [address] 05/22/2025 2:10 PM EST Blood Draw [facility] [address] [address] 05/22/2025 3:20 PM EST Infusion [facility] at [address] [address] Yisel Kincaid RN [address] [place] [address] 05/25/2025 1:30 PM EST Appointment [facility], Ct Scan - [address] [address] Lana Simmons MD [address] [place] [address] [email or web address] 06/19/2025 8:20 AM EST Blood Draw [facility] Phleb [facility] [address] [place] [address] 06/19/2025 9:30 AM EST Office Visit [facility] at [address] [address] Lana Simmons MD [address] [place] [address] [email or web address] 06/19/2025 10:20 AM EST Infusion [facility] at [address] [address] documented as of this encounter Results * Chemistry Hold (08/29/2018 12:47 PM EDT) Blood 08/29/2018 12:4 7 PM EDT 08/29/2018 1:09 PM EDT Ange Hugo Thakkar[place] DO LAB BLOOD ORDERABLES Final Result Performing Organization Address City/State/[facility] Co de Phone Number [address] [address] documented in this encounter Visit Diagnoses Diagnosis Screening for unspecified condition- Primary documented in this encounter Care Teams Director Of Critical Care Relationship Specialty Start Date End Date Everett Carter PA [address] [facility] [place] [address] [address] [email or web address] PCP - General Unknown Provider Specialty 04/09/18 11/29/20 Stormy Valdovinos PA [address] [place] [address] PCP - General 11/30/20 05/08/23 Royce Gr MD [address] [place] [address] [email or web address] PCP - General Family Medicine 05/09/23 03/20/24 Stormy Valdovinos PA [address] [place] [address] PCP - General Physician Plant Quality Manager 03/21/24 Everton Nation MD [address] [place] [address] [email or web address] Insurance Assigned Provider 09/07/18 05/09/20 Sarah Reagan MD [address] [place] [address] [email or web address] LICENSE OF [facility] Primary Oncologist Hematology and Oncology 03/31/20 06/26/21 Royce Gr MD [address] [place] [address] [email or web address] Insurance Assigned Provider 05/09/20 02/12/21 Elver Gomez MD [address] [place] [address] [email or web address] Insurance Assigned Provider 02/12/21 07/10/21 Royce Gr MD [address] [place] [address] [email or web address] Insurance Assigned Provider 07/10/21 02/11/22 Lana Simmons MD [address] [place] [address] [email or web address] Primary Oncologist Medical Oncology 07/22/21 02/13/22 Sarah Reagan MD [address] [place] [address] [email or web address] LICENSE OF [facility] Historical LMR Provider Hematology and Oncology 07/22/21 05/14/22 Elver Gomez MD [address] [place] [address] Insurance Assigned Provider 02/11/22 07/08/22 Cordelia Hernandez NP [address] [place] [address] Nurse Practitioner Medical Oncology 02/14/22 08/12/24 Lana Simmons MD [address] [place] [address] Primary Oncologist Medical Oncology 02/14/22 Pamela Gaviria, RN [address] [place] [address] [facility] Multi Mission Helicopter Aircrewman 06/19/23 06/28/23 Royce Gr MD [address] [place] [address] [email or web address] Insurance Assigned Provider 04/18/25 documented as of this encounter Additional Source Comments The information contained in this document represents components of the legal health record. It is not the complete legal health record.[facility]
--- OUTSIDE RECORDS SUMMARY | 2025-04-22 13:58 | XMS_ITS | Encounter Summary ---
Author Organization [facility] Address [address] [facility] [address] [place] [address] Phone Care Team Providers Care Apartment Community Assistant Manager Name Role Phone Cordelia Hernandez QUALITY CONTROL LAB TECH Unavailable Lana Simmons MD Unavailable Royce Gr MD Primary Care Provider Pamela Gaviria RN Unavailable Stormy Valdovinos Primary Care Provider Royce Gr MD Unavailable Encounter Details Date Type Department Care Team (Late st Contact Info) Description 05/22/2023 Procedure Pass [facility], Ct Scan - [address] [address] Social History Tobacco Use Types Packs/Day Years [...] st Contact Info) Description 03/25/2025 Procedure Pass [facility], [address] [address] 04/24/2025 2:20 PM EST Blood Draw [facility] Phleb [address] [address] 04/24/2025 3:20 PM EST Infusion [facility] at [address] [address] Lana Simmons MD [address] [place] [address] Yisel Kincaid RN [address] [place] [address] 05/22/2025 2:10 PM EST Blood Draw [facility] [address] [address] 05/22/2025 3:20 PM EST Infusion [facility] at [address] [address] Yisel Kincaid RN [address] [place] [address] 05/25/2025 1:30 PM EST Appointment [facility], [address] [address] Lana Simmons MD [address] [place] [address] 06/19/2025 8:20 AM EST Blood Draw [facility] Phleb [address] [address] 06/19/2025 9:30 AM EST Office Visit [facility] at [address] [place] [address] Lana Simmons MD [address] [place] [address] [email or web address] 06/19/2025 10:20 AM EST [facility] at [address] [address] documented as of this encounter Visit Diagnoses Not on filedocumented in this encounter Care Teams Apartment Community Assistant Manager Relationship Specialty Start Date End Date Royce Gr MD [address] [place] [address] [email or web address] PCP - General Family Medicine 05/09/23 03/20/24 Stormy Valdovinos PA [address] [place] [address] PCP - General Physician Mid Level Provider 03/21/24 Cordelia Hernandez NP [address] [place] [address] [email or web address] Nurse Practitioner Medical Oncology 02/14/22 08/12/24 Lana Simmons MD [address] [place] [address] Primary Oncologist Medical Oncology 02/14/22 Pamela Gaviria, VIJAY [address] [place] [address] PHCM [employer] Delivery Driver 06/19/23 06/28/23 Royce Gr MD [address] [place] [address] [email or web address] Insurance Assigned Provider 04/18/25 documented as of this encounter Additional Source Comments The information contained in this document represents components of the legal health record. It is not the complete legal health record.[facility]
--- OUTSIDE RECORDS SUMMARY | 2025-04-22 13:58 | XMS_ITS | Encounter Summary ---
Author Organization [facility] Address [address] [facility] [address] [place] [address] Phone Care Team Providers Care Paediatric Surgeon Name Role Phone Cordelia Hernandez WASTE RECLAIMER Unavailable [phone] Lana Simmons MD Unavailable Royce Gr MD Primary Care Provider Pamela Gaviria RN Unavailable Stormy Valdovinos Primary Care Provider Royce Gr MD Unavailable Encounter Details Date Type Department Care Team (Late st Contact Info) Description 05/22/[address] [facility], Ct Scan - [address] [address] Social History Tobacco Use Types Packs/Day Years [...] st Contact Info) Description 03/25/[address] [facility], [address] [address] 04/24/2025 2:20 PM EST Blood Draw [facility] Phleb [address] [address] 04/24/2025 3:20 PM EST Infusion [facility] at [address] [address] Lana Simmons MD [address] [place] [address] Yisel Kincaid RN [address] [place] [address] 05/22/2025 2:10 PM EST Blood Draw [facility]b [address] [address] 05/22/2025 3:20 PM EST Infusion [facility] at [address] [address] Yisel Kincaid RN [address] [place] [address] 05/25/2025 1:30 PM EST Appointment [facility], [address] [address] Lana Simmons MD [address] [place] [address] 06/19/2025 8:20 AM EST Blood Draw [facility] Phleb [address] [address] 06/19/2025 9:30 AM EST Office Visit [facility] at [address] [place] [address] Lana Simmons MD [address] [place] [address] [email or web address] 06/19/2025 10:20 AM EST [facility] at [address] [address] documented as of this encounter Visit Diagnoses Not on filedocumented in this encounter Care Teams Paediatric Surgeon Relationship Specialty Start Date End Date Royce Gr MD [address] [place] [address] [email or web address] PCP - General Family Medicine 05/09/23 03/20/24 Stormy Valdovinos PA [address] [place] [address] PCP - General Physician Printing Plate Setter 03/21/24 Cordelia Hernandez NP [address] [place] [address] [email or web address] Nurse Practitioner Medical Oncology 02/14/22 08/12/24 Lana Simmons MD [address] [place] [address] Primary Oncologist Medical Oncology 02/14/22 Pamela Gaviria, VIJAY [address] [place] [address] PHCM Rag Sorter And Cutter 06/19/23 06/28/23 Royce Gr MD [address] [place] [address] [email or web address] Insurance Assigned Provider 04/18/25 documented as of this encounter Additional Source Comments The information contained in this document represents components of the legal health record. It is not the complete legal health record.[facility]
--- OUTSIDE RECORDS SUMMARY | 2025-04-22 13:58 | XMS_ITS | Encounter Summary ---
Author Organization [facility] Address [address] [facility] [address] [place] [address] Phone Care Team Providers Care Wire Mesh Gate Assembler Name Role Phone Cordelia Hernandez PARTS WASHER Unavailable [phone] Lana Simmons MD Unavailable [phone] Stormy Valdovinos Primary Care Provider [phone] Royce Gr MD Unavailable [phone] Encounter Details Date Type Department Care Team (Late st Contact Info) Description 05/14/2024 Procedure Pass [facility], Ct Scan - [address] [address] Social History Tobacco Use Types Packs/Day Years [...] 5:26 PM EST Ashwini Rowley RN * [place] Suicide Severity Rating Scale (Screener/Recent Self-Report) Question Answer Date of Assessment Author 1. Wish to be (Past 1 Month) No 05/14/2024 5:26 PM EST Ashwini Rowley RN 2. Non-Specific Active Suici jazmin Thoughts (Past 1 Month) No 05/14/2024 5:26 PM EST Ashwini Rowley, VIJAY 6. Suicidal Behavior (Lifetime) No 5:26 PM EST Ashwini Rowley RN documented as of this encounter Plan of Treatment Upcoming Encounters Date Type Department Care Team (Late st Contact Info) Description 03/25/2025 Procedure Pass [facility], Ct Scan - [facility] [address] [place] [address] 04/24/2025 2:20 PM EST Blood Draw [facility] Ph[facility]b [facility] [address] [place] [address] 04/24/2025 3:20 PM EST Infusion [facility] at [address] [address] Lana Simmons MD [address] [place] [address] Yisel Kincaid RN [address] [place] [address] 05/22/2025 2:10 PM EST Blood Draw [facility] Phleb [address] [address] 05/22/2025 3:20 PM EST Infusion [facility] at [address] [address] Yisel Kincaid RN [address] [place] [address] 05/25/2025 1:30 PM EST Appointment [facility], Ct Scan - [address] [address] Lana Simmons MD [address] [place] [address] 06/19/2025 8:20 AM EST Blood Draw [facility] Phleb [address] [address] 06/19/2025 9:30 AM EST Office Visit [facility] at [address] [address] Lana Simmons MD [address] [place] [address] 06/19/2025 10:20 AM EST Infusion [facility] at [address] [address] documented as of this encounter Visit Diagnoses Not on filedocumented in this encounter Care Teams Wire Mesh Gate Assembler Relationship Specialty Start Date End Date Stormy Valdovinos PA [address] [place] [address] PCP - General Physician Directional Bore Operator 03/21/24 Cordelia Hernandez NP [address] [place] [address] Nurse Practitioner Medical Oncology 02/14/22 08/12/24 Lana Simmons MD [address] [place] [address] [email or web address] Primary Oncologist Medical Oncology 02/14/22 Royce Gr MD [address] [place] [address] [email or web address] Insurance Assigned Provider 04/18/25 documented as of this encounter Additional Source Comments The information contained in this document represents components of the legal health record. It is not the complete legal health record.[facility]
--- OUTSIDE RECORDS SUMMARY | 2025-04-22 13:58 | XMS_ITS | Encounter Summary ---
Author Organization [facility] Address [address] [facility] [address] [place] [address] Phone Care Team Providers Care Packer Denture Name Role Phone Sarah Reagan MD Unavailable Stormy Valdovinos Primary Care Provider [phone] Elver Gomez MD Unavailable [phone] Royce Gr MD Unavailable [phone] Lana Simmons MD Unavailable Sarah Reagan MD Unavailable Elver Gomez MD Unavailable [phone] Cordelia Hernandez NP Unavailable [phone] Lana Simmons MD Unavailable Royce Gr MD Primary Care Provider [phone] Pamela Gaviria RN Unavailable Stormy Valdovinos Primary Care Provider [phone] Royce Gr MD Unavailable [phone] Encounter Details Date Type Department Care Team (Late st Contact Info) Description 06/24/2021 Procedure Pass [facility], Ct Scan - [address] [address] Social History Tobacco Use Types Packs/Day Years [...] PM EST Postem Kayley ayala RN * [place] Suicide Severity Rating Scale (Screener/Recent Self-Report) Question Answer Date of Assessment Author 1. Wish to be (Past 1 Month) No 06/24/2021 12:40 PM Kayley Soler RN 2. Non-Specific Active Suicidal Thoughts (Past 1 Month) No 06/24/2021 12:40 PM Kayley Soler RN 6. Suicidal Behavior (Lifetime) No 06/24/2021 12:40 PM Kayley Soler RN documented as of this encounter Plan of Treatment Upcoming Encounters Date Type Department Care Team (Late st Contact Info) Description 03/25/2025 Procedure Pass [facility], Ct Scan - [address] [address] 04/24/2025 2:20 PM EST Blood Draw [facility] Phleb [address] [address] 04/24/2025 3:20 PM EST Infusion [facility] at [address] [address] Lana Simmons MD [address] [place] [address] Yisel Kincaid RN [address] [place] [address] 05/22/2025 2:10 PM EST Blood Draw [facility] Phleb [address] [address] 05/22/2025 3:20 PM EST Infusion [facility] at [address] [address] Yisel Kincaid RN [address] [place] [address] 05/25/2025 1:30 PM EST Appointment [facility], Ct Scan - [address] [address] Lana Simmons MD [address] [place] [address] 06/19/2025 8:20 AM EST Blood Draw [facility] Phleb [address] [address] 06/19/2025 9:30 AM EST Office Visit [facility] at [address] [address] Lana Simmons MD [address] [place] [address] [email or web address] 06/19/2025 10:20 AM EST Infusion [facility] at [address] [address] documented as of this encounter Visit Diagnoses Not on filedocumented in this encounter Care Teams Packer Denture Relationship Specialty Start Date End Date Stormy Valdovinos PA [address] [place] [address] PCP - General 11/30/20 05/08/23 Royce Gr MD [address] [place] [address] PCP - General Family Medicine 05/09/23 03/20/24 Stormy Valdovinos PA [address] [place] [address] PCP - General Physician Licensed Practical Nurse 03/21/24 Sarah Reagan MD [address] [place] [address] [email or web address] Primary Oncologist Hematology and Oncology 03/31/20 06/26/21 Elver Gomez MD [address] [place] [address] [email or web address] Insurance Assigned Provider 02/12/21 07/10/21 Royce Gr MD [address] [place] [address] [email or web address] Insurance Assigned Provider 07/10/21 02/11/22 Lana Simmons MD [address] [place] [address] [email or web address] Primary Oncologist Medical Oncology 07/22/21 02/13/22 Sarah Reagan MD [address] [place] [address] [email or web address] Historical LMR Provider Hematology and Oncology 07/22/21 05/14/22 Elver Gomez MD [address] [place] [address] [email or web address] Insurance Assigned Provider 02/11/22 07/08/22 Cordelia Hernandez NP [address] [place] [address] [email or web address] Nurse Practitioner Medical Oncology 02/14/22 08/12/24 Lana Simmons MD [address] [place] [address] [email or web address] Primary Oncologist Medical Oncology 02/14/22 Pamela Gaviria, VIJAY [address] [place] [address] [email or web address] [facility] Railroad Engineer 06/19/23 06/28/23 Royce Gr MD [address] [place] [address] [email or web address] Insurance Assigned Provider 04/18/25 documented as of this encounter Additional Source Comments The information contained in this document represents components of the legal health record. It is not the complete legal health record.[facility]
--- OUTSIDE RECORDS SUMMARY | 2025-04-22 13:59 | XMS_ITS | Encounter Summary ---
Author Organization [facility] Address [address] [facility] [address] [place] [address] Phone Care Team Providers Care Rehabilitation Therapist Name Role Phone Everett Carter Primary Care Provider Everton Nation MD Unavailable + Saarh Reagan MD Unavailable Royce Gr MD Unavailable [phone] Stormy Valdovinos Primary Care Provider [phone] Elver Gomez MD Unavailable [phone] Royce Gr MD Unavailable Lana Simmons MD Unavailable [phone] Sarah Reagan MD Unavailable Elver Gomez MD Unavailable [phone] Cordelia Hernandez UROLOGIST MD Unavailable [phone] Lana Simmons MD Unavailable Royce Gr MD Primary Care Provider [phone] Pamela Gaviria RN Unavailable Stormy Valdovinos Primary Care Provider [phone] Royce Gr MD Unavailable [phone] Encounter Details Date Type Department Care Team (Late st Contact Info) Description 04/27/2020 Procedure Pass [facility] Endoscopy Admitting Dept Virtual Department [address] [place] [address] Social History Tobacco Use Types Packs/Day Years [...] st Contact Info) Description 03/25/2025 Procedure Pass [address] [address] 04/24/2025 2:20 PM EST Blood Draw [facility] [address] [address] 04/24/2025 3:[address] [facility] at [address] [address] Lana Simmons MD [address] [place] [address] Yisel Kincaid RN [address] [place] [address] 05/22/2025 2:10 PM EST Blood Draw [facility] [address] [address] 05/22/2025 3:20 PM EST Infusion [facility] at [address] [address] Yisel Kincaid RN [address] [place] [address] 05/25/2025 1:30 PM EST Appointment [address] [address] Lana Simmons MD [address] [place] [address] 06/19/2025 8:20 AM EST Blood Draw [facility] [address] [address] 06/19/2025 9:30 AM EST Office Visit [facility] at [address] [address] Lana Simmons MD [address] [place] [address] 06/19/2025 10:20 AM EST Infusion [facility] at [address] [address] documented as of this encounter Visit Diagnoses Not on filedocumented in this encounter Care Teams Rehabilitation Therapist Relationship Specialty Start Date End Date Everett Carter PA [address] [place] [phone] [email or web address] PCP - General Unknown Provider Specialty 04/09/18 11/29/20 Stormy Valdovinos PA [address] [place] [address] PCP - General 11/30/20 05/08/23 Royce Gr MD [address] [place] [address] [email or web address] PCP - General Family Medicine 05/09/23 03/20/24 Stormy Valdovinos PA [address] [place] [address] PCP - General Physician Diamond Mounter 03/21/24 Everton Nation MD [address] [place] [address] [email or web address] Insurance Assigned Provider 09/07/18 05/09/20 Sarah Reagan MD [address] [place] [address] [email or web address] Primary Oncologist Hematology and Oncology 03/31/20 06/26/21 Royce Gr MD [address] [place] [address] [email or web address] Insurance Assigned Provider 05/09/20 02/12/21 Elver Gomez MD [address] [place] [address] [email or web address] Insurance Assigned Provider 02/12/21 07/10/21 Royce Gr MD [address] [place] [address] [email or web address] Insurance Assigned Provider 07/10/21 02/11/22 Lana Simmons MD [address] [place] [address] [email or web address] Primary Oncologist Medical Oncology 07/22/21 02/13/22 Sarah Reagan MD [address] [place] [phone] [email or web address] Historical LMR Provider Hematology and Oncology 07/22/21 05/14/22 Elver Gomez MD [address] [place] [address] [email or web address] Insurance Assigned Provider 02/11/22 07/08/22 Cordelia Hernandez NP [address] [place] [address] [email or web address] Nurse Practitioner Medical Oncology 02/14/22 08/12/24 Lana Simmons MD [address] [place] [email or web address] Primary Oncologist Medical Oncology 02/14/22 Pamela Gaviria RN [address] [place] [address] [email or web address] PHC Pole Shaver Helper 06/19/23 06/28/23 Royce Gr MD [address] [place] [address] [email or web address] Insurance Assigned Provider 04/18/25 documented as of this encounter Additional Source Comments The information contained in this document represents components of the legal health record. It is not the complete legal health record.[facility]
--- OUTSIDE RECORDS SUMMARY | 2025-04-22 13:59 | XMS_ITS | Encounter Summary ---
Author Organization [facility] Address [address] [facility] [address] [place] [address] Phone Care Team Providers Care Audio Visual Tech Name Role Phone Cordelia Hernandez MAC DEVELOPER Unavailable [phone] Lana Simmons MD Unavailable [phone] Royce Gr MD Primary Care Provider Stormy Valdovinos Primary Care Provider [phone] Royce Gr MD Unavailable [phone] Encounter Details Date Type Department Care Team (Late st Contact Info) Description 08/11/2023 Procedure Pass [facility], Ct Scan - [address] [address] Social History Tobacco Use Types Packs/Day Years [...] 08/11/2023 10:18 AM Jenn Ayala RN * [place] Suicide Severity Rating Scale (Screener/Recent Self-Report) Question [...] st Contact Info) Description 03/25/2025 Procedure Pass [facility], Ct Scan - [address] [address] 04/24/2025 2:20 PM EST Blood Draw [facility] [address] [address] 04/24/2025 3:20 PM EST Infusion [facility] at [address] [address] Lana Simmons MD [address] [place] [address] Yisel Kincaid RN [address] [place] [address] 05/22/2025 2:10 PM EST Blood Draw [facility] [address] [address] 05/22/2025 3:20 PM EST Infusion [facility] at [address] [address] Yisel Kincaid RN [address] [place] [address] 05/25/2025 1:30 PM EST Appointment [facility], Ct Scan - [address] [address] Lana Simmons MD [address] [place] [address] [email or web address] 06/19/2025 8:20 AM EST Blood Draw [facility] [address] [place] [address] 06/19/2025 9:30 AM EST Office Visit [facility] at [address] [address] Lana Simmons MD [address] [place] [email or web address] 06/19/2025 10:20 AM EST Infusion [facility] at [address] [address] documented as of this encounter Visit Diagnoses Not on filedocumented in this encounter Care Teams Audio Visual Tech Relationship Specialty Start Date End Date Royce Gr MD [address] [place] [address] [email or web address] PCP - General Family Medicine 05/09/23 03/20/24 Stormy Valdovinos PA [address] [place] [address] PCP - General Physician Histology Manager 03/21/24 Cordelia Hernandez NP [address] [place] [address] [email or web address] Nurse Practitioner Medical Oncology 02/14/22 08/12/24 Lana Simmons MD [address] [place] [address] [email or web address] Primary Oncologist Medical Oncology 02/14/22 Royce Gr MD [address] [place] [address] [email or web address] Insurance Assigned Provider 04/18/25 documented as of this encounter Additional Source Comments The information contained in this document represents components of the legal health record. It is not the complete legal health record.[facility]
--- OUTSIDE RECORDS SUMMARY | 2025-04-22 13:59 | XMS_ITS | Encounter Summary ---
Author Organization [facility] Address [address] [place] [address] [place] [address] Phone Care Team Providers Care Necktie Centralizing Machine Operator Name Role Phone Pcp, Not Required Primary Care Provider Unavaila Everett Pham Primary Care Provider Everton Nation MD Unavailable + Sarah Reagan MD Unavailable Royce Gr MD Unavailable [phone] Stormy Valdovinos Primary Care Provider [phone] Elver Gomez MD Unavailable [phone] Royce Gr MD Unavailable [phone] Lana Simmons MD Unavailable [phone] Sarah Reagan MD Unavailable Elver Gomez MD Unavailable [phone] Cordelia Hernandez NP Unavailable [phone] Lana Simmons MD Unavailable [phone] Royce Gr MD Primary Care Provider [phone] Pamela Gaviria RN Unavailable Stormy Valdovinos Primary Care Provider [phone] Royce Gr MD Unavailable Encounter Details Date Type Department Care Team (Late st Contact Info) Description 03/26/2018 Procedure Pass [facility] [address] [place] [address] Social History Tobacco Use Types Packs/Day Years [...] st Contact Info) Description 03/25/2025 Procedure Pass [address] [address] 04/24/2025 2:20 PM EST Blood Draw [facility] Phleb [address] [address] 04/24/2025 3:20 PM EST Infusion [facility] at [address] [address] Lana Simmons MD [address] [place] [address] Yisel Kincaid RN [address] [place] [address] 05/22/2025 2:10 PM EST Blood Draw [facility] Phleb [address] [address] 05/22/2025 3:20 PM EST Infusion [facility] at [address] [address] Yisel Kincaid RN [address] [place] [address] 05/25/2025 1:30 PM EST Appointment [address] [address] Laan Simmons MD [address] [place] [address] 06/19/2025 8:20 AM EST Blood Draw [facility] [address] [place] [address] 06/19/2025 9:30 AM EST Office Visit [facility] at [address] [address] Lana Simmons MD [address] [place] [address] 06/19/2025 10:20 AM EST Infusion [facility] at [address] [address] documented as of this encounter Visit Diagnoses Not on filedocumented in this encounter Care Teams Necktie Centralizing Machine Operator Relationship Specialty Start Date End Date Pcp, Not Required [address] [place] [address] PCP - General 03/23/18 04/08/18 Everett Carter PA [address] [place] [address] [email or web address] PCP - General Unknown Provider Specialty 04/09/18 11/29/20 Stormy Valdovinos PA [address] [place] [address] PCP - General 11/30/20 05/08/23 Royce Gr MD [address] [place] [address] [email or web address] PCP - General Family Medicine 05/09/23 03/20/24 Stormy Valdovinos PA [address] [place] [address] PCP - General Physician Fabric Sourcer 03/21/24 Everton Nation MD [address] [place] [address] [email or web address] Insurance Assigned Provider 09/07/18 05/09/20 Sarah Reagan MD [address] [place] [address] [email or web address] Primary Oncologist Hematology and Oncology 03/31/20 06/26/21 Royce Gr MD [address] [place] [address] [email or web address] Insurance Assigned Provider 05/09/20 02/12/21 Elver Gomez MD [address] [place] [address] [email or web address] Insurance Assigned Provider 02/12/21 07/10/21 Royce Gr MD [address] [place] [address] [email or web address] Insurance Assigned Provider 07/10/21 02/11/22 Lana Simmons MD [address] [place] [email or web address] Primary Oncologist Medical Oncology 07/22/21 02/13/22 Sarah Reagan MD [address] [place] [phone] [email or web address] Historical LMR Provider Hematology and Oncology 07/22/21 05/14/22 Elver Gomez MD [address] [place] [address] Insurance Assigned Provider 02/11/22 07/08/22 Cordelia Hernandez NP [address] [place] [address] Nurse Practitioner Medical Oncology 02/14/22 08/12/24 Lana Simmons MD [address] [place] [address] Primary Oncologist Medical Oncology 02/14/22 Pamela Gaviria, RN [address] [place] [address] PHCM Estimator 06/19/23 06/28/23 Royce Gr MD [address] [place] [phone] Insurance Assigned Provider 04/18/25 documented as of this encounter Additional Source Comments The information contained in this document represents components of the legal health record. It is not the complete legal health record.[facility]
--- OUTSIDE RECORDS SUMMARY | 2025-04-22 13:59 | XMS_ITS | Encounter Summary ---
Author Organization [facility] Address [address] [facility] [address] [place] [address] Phone Care Team Providers Care Document Reviewer Name Role Phone Cordelia Hernandez [employer] Unavailable [phone] Lana Simmons MD Unavailable [phone] Royce Gr MD Primary Care Provider Stormy Valdovinos Primary Care Provider [phone] Royce Gr MD Unavailable [phone] Encounter Details Date Type Department Care Team (Late st Contact Info) Description 08/11/2023 Procedure Pass [facility], Ct Scan - [address] [address] Social History Tobacco Use Types Packs/Day Years [...] 08/11/2023 10:18 AM Jenn Ayala RN * [place] Suicide Severity Rating Scale (Screener/Recent Self-Report) Question [...] st Contact Info) Description 03/25/2025 Procedure Pass [facility], Ct Scan - [address] [address] 04/24/2025 2:20 PM EST Blood Draw [facility] Phleb [address] [address] 04/24/2025 3:20 PM EST Infusion [facility] at [address] [address] Lana Simmons MD [address] [place] [address] Yisel Kincaid RN [address] [place] [address] 05/22/2025 2:10 PM EST Blood Draw [facility]leb [address] [address] 05/22/2025 3:20 PM EST Infusion [facility] at [address] [address] Yisel Kincaid RN [address] [place] [address] 05/25/2025 1:30 PM EST Appointment [facility], Ct Scan - [address] [address] Lana Simmons MD [address] [place] [address] [email or web address] 06/19/2025 8:20 AM EST Blood Draw [facility] [address] [place] [address] 06/19/2025 9:30 AM EST Office Visit [facility] at [address] [address] Lana Simmons MD [address] [place] [address] [email or web address] 06/19/2025 10:20 AM EST Infusion [facility] at [address] [address] documented as of this encounter Visit Diagnoses Not on filedocumented in this encounter Care Teams Document Reviewer Relationship Specialty Start Date End Date Royce Gr MD [address] [place] [address] [email or web address] PCP - General Family Medicine 05/09/23 03/20/24 Stormy Valdovinos PA [address] [place] [address] PCP - General Physician Mixer Operator Tablets 03/21/24 Cordelia Hernandez NP [address] [place] [address] [email or web address] Nurse Practitioner Medical Oncology 02/14/22 08/12/24 Lana Simmons MD [address] [place] [email or web address] Primary Oncologist Medical Oncology 02/14/22 Royce Gr MD [address] [place] [address] [email or web address] Insurance Assigned Provider 04/18/25 documented as of this encounter Additional Source Comments The information contained in this document represents components of the legal health record. It is not the complete legal health record.[facility]
--- OUTSIDE RECORDS SUMMARY | 2025-04-22 14:00 | XMS_ITS | Clinical Summary ---
Author Organization [facility] Address [address] [facility] [address] [place] [address] Phone Care Team Providers Care Insights Manager Name Role Phone Lana Simmons MD Unavailable [phone] Stormy Valdovinos Primary Care Provider [phone] Royce Gr MD Unavailable [phone] Allergies Active Allergy Reactions Criticality Noted Date [...] Encounters Date Type Department Care Team Description 04/21/2025 [facility] RISK SCORES SYSTEM GENERATED External System Generated Encounter [address] [place] [address] Unknown, Unknown, 04/20/[address] [facility] at [address] [address] Lana Simmons MD Reschedule 04/06/2025 M[facility] RISK SCORES SYSTEM GENERATED External System Generated Encounter [address] [place] [address] Unknown, Unknown, 03/31/2025 [facility] RISK SCORES SYSTEM GENERATED External System Generated Encounter [address] [place] [address] Unknown, Unknown, 03/25/2025 3:[address] [facility] at [address] [address] Lana Simmons MD Brumbaugh, Benjamin, RN Neuroendocrine carcinoma (Primary Dx) 03/25/2025 2:30 PM EDT Office Visit [facility] at [address] [address] Lana Simmons MD Neuroendocrine carcinoma (Primary Dx); Mesenteric mass 03/25/2025 1:20 PM EDT - 03/25/2025 11:59 PM EDT Hospital Encounter [facility] [address] [address] Lana Simmons MD Discharge Disposition: Home or Self Care 03/02/2025 [facility] RISK SCORES SYSTEM GENERATED External System Generated Encounter [address] [place] [address] Unknown, UnknownMD 02/26/2025 3:[address] [facility] at [address] [address] Lana Simmons MD Romero Losada, Maritza Fonseca, VIJAY Neuroendocrine carcinoma (Primary Dx) 02/25/[address] [facility] at [address] [address] Susi Christy, keeper helper Refill 02/25/[address] [facility] at [address] [address] Lana Simmons MD Appt R/s 02/09/2025 2:30 PM EDT Office Visit [facility] [address] [place] [address] Aguilar Hu MD Palliative care encounter (Primary Dx); Cancer related pain; Use of opiates for therapeutic purposes; Neuroendocrine carcinoma 01/29/2025 Orders Only [facility] [address] [place] [address] Aguilar Hu MD 01/29/[address] [facility] at [address] [address] Susi Christy RN Medication Refill 01/28/2025 2:[address] [facility] at [address] [address] Lana Simmons MD Robertson, Carolyn Ann, RN Neuroendocrine carcinoma (Primary Dx) 01/28/2025 1:28 PM EDT - 01/28/2025 11:59 PM EDT Hospital Encounter [facility] [address] [place] [address] Lana Simmons MD Discharge Disposition: Home or Self Care from Last 3 Months Immunizations Immunization Administration [...] your housing situation today? I have lyudmila nava 11/08/2024 How many times have you move [...] st Contact Info) Description 03/25/2025 Procedure Pass [facility], Ct Scan [address] [address] 04/24/2025 2:20 PM EST Blood Draw [facility] [address] [address] 04/24/2025 3:[address] [facility] at [address] [address] Lana Simmons MD [address] [place] [address] Yisel Kincaid RN [address] [place] [address] 05/22/2025 2:10 PM EST Blood Draw [facility] [address] [address] 05/22/2025 3:[address] [facility] at [address] [address] Yisel Kincaid RN [address] [place] [address] 05/25/2025 1:30 PM EST Appointment [facility], Ct Scan [address] [address] Lana Simmons MD [address] [place] [address] [email or web address] 06/19/2025 8:20 AM EST Blood Draw [facility] [address] [place] [address] 06/19/2025 9:30 AM EST Office Visit [facility] at [address] [address] Lana Simmons MD [address] [place] [address] [email or web address] 06/19/2025 10:20 AM EST Infusion [facility] at [address] [address] Health Maintenance Due Date Last Done Comments DEPRESSION SCREENING 1984 SMOKING Hx and SMOKELESS TOBACCO SCREENING 1985 HIV ONE-TIME SCREENING (18-65 YEARS) 1990 PNEUMOCOCCAL VACCINES (50+ years) (1 of 2 - PCV) 1991 ZOSTER VACCINES (1 of 2) 1991 COLOGUARD 2017 FIT TEST 2017 FOBT 2017 SIGMOIDOSCOPY 2017 VIRTUAL COLONOSCOPY 2017 INFLUENZA VACCINE (#1) 2025 COVID-19 VACCINE ( - 2024- season) 2025 09/15/2020, 08/21/2020 BLOOD [...] PM EDT Neuroendocrine carcinoma COMPREHENSIVE METABOLIC PANEL (CMP) STAT 03/25/2025 1:20 PM EDT Neuroendocrine carcinoma CBC AND DIFFERENTIAL STAT 03/25/2025 1:20 PM EDT Neuroendocrine carcinoma CHROMOGRANIN A Routine 01/28/2025 1:28 PM EDT Neuroendocrine carcinoma COMPREHENSIVE METABOLIC PANEL (CMP) STAT 01/28/2025 1:28 PM EDT Neuroendocrine carcinoma CBC AND DIFFERENTIAL STAT 01/28/2025 1:28 PM EDT Neuroendocrine carcinoma ENDOSCOPY, COLON 04/27/2020 9:30 AM EST from Last 3 Months or Most Recently Relevant to Health Maintenance Results * (ABNORMAL) Comprehensive metabolic panel (03/25/2025 1:20 PM EDT) Only the most recent of2 resultswithin the time period is included. SODIUM 141 133 - 146 mmol/L [facility] POTASSIUM 4.9 3.3 - 5.1 mmol/L [facility] CHLORIDE 104 96 - 108 mmol/L [facility] CO2 28 21 - 35 mmol/L [facility] BUN 15 6 - 19 mg/dL [facility] CREATININE 0.90 0.5 - 1.5 mg/dL [facility] GLUCOSE 126(H) 70 - 99 mg/dL [facility] ALBUMIN 4.3 3.9 - 4.8 g/dL [facility] TOTAL PROTEIN 7.4 6.5 - 8.0 g/dL [facility] CALCIUM 9.5 8.4 - 10.3 mg/dL [facility] ALKALINE PHOSPHATASE 72 39 - 117 U/L [facility] TOTAL BILIRUBIN <0.2 0.0 - 1.2 mg/dL [facility] AST 12 0 - 37 U/L [facility] ALT 11 0 - 40 U/L [facility] GLOBULIN 3.1 1 - 4.8 g/dL [facility] EGFR 102 >59 mL/min/1.7 3m2 [facility] Comment:Estimated glomerular filtration rate calculated using the CKD-EPI refit equation. ANION GAP 14 10 - 20 mmol/L [facility] Blood 03/25/2025 1:20 PM EDT 03/25/2025 1:49 PM EDT us Lana Simmons MD LAB BLOOD BKR ORDERABLES Ayala l Result [address] [address] * Chromogranin A (03/25/2025 1:20 PM EDT) Only the most recent of2 resultswithin the time period is included. CHROMOGRANIN A 47 <93 ng/mL [facility] Comment: (NOTE) ADDITIONAL INFORMATION The testing method is a homogeneous time-resolved immunofluorescent assay manufactured by [employer] and performed on the [employer] Kryptor Compact Plus. Values obtained with different [...] MD LAB BLOOD ORDERABLES Final Re sult [facility] [address] [place] [address] * (ABNORMAL) CBC and differential (03/25/2025 1:20 PM EDT) Only the most recent of2 resultswithin the time period is included. WBC 9.78 4.00 - 11.00 K/uL [facility] RBC 4.65 4.50 - 5.90 M/uL [facility] HGB 14.1 13.5 - 17.5 g/dL [facility] HCT 43.1 41.0 - 53.0 % [facility] PLT 256 150 - 450 K/uL [facility] MCV 92.7 80.0 - 100.0 fL [facility] MCH 30.3 27.0 - 31.0 pg [facility] MCHC 32.7 32.0 - 36.0 g/dL [facility] RDW 13.0 11.5 - 14.5 % [facility] MPV 10.5 8.4 - 12.0 fL [facility] NRBC 0.00 0.00 /100 WBCs [facility] ABSOLUTE NRBC 0.00 0.00 K/uL [facility] DIFF METHOD Auto [facility] NEUTS 50.1 48.0 - 76.0 % [facility] LYMPHS 37.2 18.0 - 41.0 % [facility] MONOS 7.3 4.0 - 11.0 % [facility] EOS 3.5 0.0 - 5.0 % [facility] BASOS 0.9 0.0 - 1.5 % [facility] Granulocytes, immature (%) 1.0(H) 0.0 - 0.9 % [facility] ABSOLUTE NEUTS 4.90 1.92 - 7.60 K/uL [facility] ABSOLUTE LYMPHS 3.64 0.72 - 4.10 K/uL [facility] ABSOLUTE MONOS 0.71 0.16 - 1.10 K/uL [facility] ABSOLUTE EOS 0.34 0.00 - 0.50 K/uL [facility] ABSOLUTE BASOS 0.09 0.00 - 0.15 K/uL [facility] Granulocytes, immature 0.10(H) 0.00 - 0.09 K/uL [facility] Blood 03/25/2025 1:20 PM EDT 03/25/2025 1:49 PM EDT us Lana Simmons MD LAB BLOOD BKR ORDERABLES Ayala rasmussen Result [facility] [address] [place] [address] * ENDOSCOPY, COLON (04/27/2020 9:30 AM EST) Narrative Transcriptions Shalonda Cook MD - 04/27/2020 9:30 AM EST Patient Name: Michele Shen Attending MD:: SHALONDA COOK MD Procedure Date: 04/27/2020 9:30 AM Date of : 1970 Age: 50 Admit Type: Outpatient Gender: Male Room: [facility] 04 Referring MD: Sarah Ramsey Exam Type: [...] monitored continuously. The Olympus adult variable colonoscope [id number] #3was introduced through the anus and advanced [...] 9:30 AM Procedure Code(s): --- Professional --- 92069, Colonoscopy, flexible; diagnostic, including collection of specimen(s) by brushing or washing, when performed (separateprocedure) --- Technical --- 19541, Colonoscopy, flexible; diagnostic, including collection of specimen(s) [...] or abscess without bleeding CPT copyright 2018 [employer]. All rights reserved. The codes documented in this report are preliminary and upon insurance coder reviewmay be revised to meet current compliance requirements. Procedure Date: 04/27/2020 9:30:36 AM [address] [place] [address] [facility] PROCEDURE ORDERABLES Final Result from Last 3 Months or Most Recently Relevant to Health Maintenance Insurance [facility] [place] [place] [id number] [facility] [place] [address] [facility] Advance Directives For more information, please contact: [phone] (9AM - 5PM [facility], Sunday-Sunday) Documents on File Type Date Recorded Patient Powderer Expl anation Healthcare Proxy 03/25/2018 2:34 PM * Full Code (Latest Code Status on File) Date Activated Date Inactivated Comments 11/08/2024 4:37 PM Question Answer Comments Code Status Confirmed With: Patient Care Teams Insights Manager Relationship Specialty Start Date End Date Stormy Valdovinos PA [address] [place] [address] PCP - General Physician Processing Technologist 03/21/24 Lana Simmons MD [address] [place] [address] [email or web address] Primary Oncologist Medical Oncology 02/14/22 Royce Gr MD [address] [place] [address] [email or web address] Insurance Assigned Provider 04/18/25 Additional Source Comments The information contained in this document represents components of the legal health record. It is not the complete legal health record.[facility]
--- OUTSIDE RECORDS SUMMARY | 2025-04-22 14:00 | XMS_ITS | Encounter Summary ---
Author Organization [facility] Address [address] [facility] [address] [place] [address] Phone Care Team Providers Care Manager Highway Name Role Phone Lana Simmons MD Unavailable Stormy Valdovinos Primary Care Provider Royce Gr MD Unavailable [phone] Reason for Visit * Reason Onset Date Comments Reschedule 04/20/2025 Encounter Details Date Type Department Care Team (Late st Contact Info) Description 04/20/2025 Telephone [facility] at [facility] [address] [place] [address] Lana Simmons MD [address] [place] [address] [email or web address] Reschedule Social History Tobacco Use Types Packs/Day Years [...] AM EDT documented as of this encounter Progress Notes * Tea Mar - 04/20/2025 9:25 AM EST Pt called and LVM stating he needs to reschedule his appts on the Requesting c/b [phone] documented in this encounter Plan of Treatment Upcoming Encounters Date Type Department Care Team (Late st Contact Info) Description 03/25/2025 Procedure Pass [facility], Ct Scan [address] [address] 04/24/2025 2:20 PM EST Blood Draw [facility] [address] [address] 04/24/2025 3:20 PM EST Infusion [facility] at [address] [address] Lana Simmons MD [address] [place] [address] Yisel Kincaid RN [address] [place] [address] 05/22/2025 2:10 PM EST Blood Draw [facility] [address] [address] 05/22/2025 3:20 PM EST Infusion [facility] at [address] [address] Yisel Kincaid RN [address] [place] [address] 05/25/2025 1:30 PM EST Appointment [address] [address] Lana Simmons MD [address] [place] [address] 06/19/2025 8:20 AM EST Blood Draw [facility] [address] [address] 06/19/2025 9:30 AM EST Office Visit [facility] at [address] [address] Lana Simmons MD [address] [place] [address] 06/19/2025 10:20 AM EST Infusion [facility] at [facility] [place] [address] [place] [address] documented as of this encounter Visit Diagnoses Not on filedocumented in this encounter Care Teams Manager Highway Relationship Specialty Start Date End Date Stormy Valdovinos PA [address] [place] [address] PCP - General Physician Infection Prevention Practitioner 03/21/24 Lana Simmons MD [address] [place] [phone] [email or web address] Primary Oncologist Medical Oncology 02/14/22 Royce Gr MD [address] [place] [address] [email or web address] Insurance Assigned Provider 04/18/25 documented as of this encounter Additional Source Comments The information contained in this document represents components of the legal health record. It is not the complete legal health record.[facility]
--- OUTSIDE RECORDS SUMMARY | 2025-04-22 14:00 | XMS_ITS | Encounter Summary ---
Author Organization [facility] Address [address] [facility] [address] [place] [address] Phone Care Team Providers Care Trailhead Maintenance Worker Name Role Phone Lana Simmons MD Unavailable [phone] Stormy Valdovinos Primary Care Provider [phone] Royce Gr MD Unavailable [phone] Encounter Details Date Type Department Care Team (Late st Contact Info) Description 11/08/2024 Procedure Pass [facility], Ct Scan - [facility] [address] [place] [address] Social History Tobacco Use Types Packs/Day Years [...] 5:00 PM EDT Gen Metzger RN * [place] Suicide Severity Rating Scale (Screener/Recent Self-Report) Question [...] st Contact Info) Description 03/25/2025 Procedure Pass [address] [address] 04/24/2025 2:20 PM EST Blood Draw [facility] [address] [address] 04/24/2025 3:20 PM EST Infusion [facility] at [address] [address] Lana Simmons MD [address] [place] [address] Yisel Kincaid RN [address] [place] [address] 05/22/2025 2:10 PM EST Blood Draw [facility] [address] [address] 05/22/2025 3:20 PM EST Infusion [facility] at [address] [address] Yisel Kincaid RN [address] [place] [address] 05/25/2025 1:30 PM EST Appointment [address] [address] Lana Simmons MD [address] [place] [address] 06/19/2025 8:20 AM EST Blood Draw [facility] [address] [address] 06/19/2025 9:30 AM EST Office Visit [facility] at [address] [address] Lana Simmons MD [address] [place] [address] 06/19/2025 10:20 AM EST Infusion [facility] [address] [place] [address] documented as of this encounter Visit Diagnoses Not on filedocumented in this encounter Care Teams Trailhead Maintenance Worker Relationship Specialty Start Date End Date Stormy Valdovinos PA [address] [place] [address] PCP - General Physician Environmental Conflict Manager 03/21/24 Lana Simmons MD [address] [place] [phone] [email or web address] Primary Oncologist Medical Oncology 02/14/22 Royce Gr MD [address] [place] [address] [email or web address] Insurance Assigned Provider 04/18/25 documented as of this encounter Additional Source Comments The information contained in this document represents components of the legal health record. It is not the complete legal health record.[facility]
--- OUTSIDE RECORDS SUMMARY | 2025-04-22 14:00 | XMS_ITS | Clinical Summary ---
Author Organization [facility] it Address [address] [place] [address] Care Team Providers Care Parole Hearing Officer Name Role Phone Unavailable Primary Care Provider [...] Depression Screening 06/04/2024 COVID-19 Vaccine (1 - 2024-2 6 season) 2025 Influenza Vaccine (#1) 2025 RSV [...]
--- OUTSIDE RECORDS SUMMARY | 2025-04-22 14:00 | XMS_ITS | Encounter Summary ---
Author Organization [facility] Address [address] [place] [address] Phone Care Team Providers Care Solidworks Designer Name Role Phone Unknown, Unknown Primary Care Provider Cheli wheeler Pcp, Not Required Primary Care Provider Unavaila Everett Pham Primary Care Provider [phone] Everton Nation MD Unavailable + Sarah Reagan MD Unavailable FeiRoyce tovar MD Unavailable + Stormy Valdovinos Primary Care Provider + Elver Gomez MD Unavailable [phone] Royce Gr MD Unavailable [phone] Lana Simmons MD Unavailable [phone] Sarah Reagan MD Unavailable Elver Gomez MD Unavailable [phone] Cordelia Hernandez NP Unavailable [phone] Lana Simmons MD Unavailable [phone] Royce Gr MD Primary Care Provider +[phone] Pamela Gaviria RN Unavailable Stormy Valdovinos Primary Care Provider +- Royce Gr MD Unavailable + Encounter Details Date Type Department Care Team (Late st Contact Info) Description 03/15/2018 Procedure Pass [facility], [address] [address] Social History Tobacco Use Types Packs/Day Years [...] Encounters Date Type Department Care Team (Late Contact Info) Description 03/25/2025 Procedure Pass [facility], [address] [address] 04/24/2025 2:20 PM EST Blood Draw [facility] [address] [address] 04/24/2025 3:20 PM EST Infusion [facility] at [address] [address] Lana Simmons MD [address] [place] [address] Yisel Kincaid RN [address] [place] [address] 05/22/2025 2:10 PM EST Blood Draw [facility] [address] [address] 05/22/2025 3:20 PM EST Infusion [facility] at [address] [address] Yisel Kincaid RN [address] [place] [address] 05/25/2025 1:30 PM EST Appointment [address] [address] Lana Simmons MD [address] [place] [address] 06/19/2025 8:20 AM EST Blood Draw [facility] [address] [place] [address] 06/19/2025 9:30 AM EST Office Visit [facility] at [address] [address] Lana Simmons MD [address] [place] [phone] [email or web address] 06/19/2025 10:20 AM EST Infusion [facility] at [address] [address] documented as of this encounter Visit Diagnoses Not on filedocumented in this encounter Care Teams Solidworks Designer Relationship Specialty Start Date End Date Unknown, Unknown, PCP - General 03/15/18 03/22/18 Pcp, Not Required [address] [place] [address] PCP - General 03/23/18 04/08/18 Everett Carter PA [address] [place] [address] [email or web address] PCP - General Unknown Provider Specialty 04/09/18 11/29/20 Stormy Valdovinos PA [address] [place] [address] PCP - General 11/30/20 05/08/23 Royce Gr MD [address] [place] [address] [email or web address] PCP - General Family Medicine 05/09/23 03/20/24 Stormy Valdovinos PA [address] [place] [address] PCP - General Physician Hebrew Professor 03/21/24 Everton Nation MD [address] [place] [address] [email or web address] Insurance Assigned Provider 09/07/18 05/09/20 Sarah Reagan MD [address] [place] [phone] [email or web address] BEDS AT THE [facility] Primary Oncologist Hematology and Oncology 03/31/20 06/26/21 Royce Gr MD [address] [place] [address] [email or web address] Insurance Assigned Provider 05/09/20 02/12/21 Elver Gomez MD [address] [place] [address] [email or web address] Insurance Assigned Provider 02/12/21 07/10/21 Royce Gr MD [address] [place] [address] [email or web address] Insurance Assigned Provider 07/10/21 02/11/22 Lana Simmons MD [address] [place] [address] [email or web address] Primary Oncologist Medical Oncology 07/22/21 02/13/22 Sarah Reagan MD [address] [place] [phone] [email or web address] BEDS AT THE [facility] Historical LMR Provider Hematology and Oncology 07/22/21 05/14/22 Elver Gomez MD [address] [place] [address] Insurance Assigned Provider 02/11/22 07/08/22 Cordelia Hernandez NP [address] [place] [address] Nurse Practitioner Medical Oncology 02/14/22 08/12/24 Lana Simmons MD [address] [place] [address] Primary Oncologist Medical Oncology 02/14/22 Pamela Gaviria, VIJAY [address] [place] [address] PHCM Hollow Handle Bench Worker 06/19/23 06/28/23 Royce Gr MD [address] [place] [address] Insurance Assigned Provider 04/18/25 documented as of this encounter Additional Source Comments The information contained in this document represents components of the legal health record. It is not the complete legal health record.[facility]
--- OUTSIDE RECORDS SUMMARY | 2025-04-22 14:00 | XMS_ITS | Clinical Summary ---
Author Organization [facility] Address [address] [place] [address] Care Team Providers Care Bellhop Captain Name Role Phone Unavailable Primary Care Provider [...]
--- OUTSIDE RECORDS SUMMARY | 2025-04-22 14:00 | XMS_ITS | Data Portability ---
Author Organization [place] - [facility], Allergy Address [address] [address] Care Team Providers Care Exercise Instructor Name Role Phone EDNA QUILES Primary Care Provider [phone] ROME HAWKINS Primary Care Provider [phone] Assessment Encounter Date Assessment Date Assessment LastModified [...] ofloxacin 0.3 % ear drops 2023 024 [facility][id number], [address] [place], [address], 11:20:04 Patient TargetsNo targets recorded. Patient InstructionsNo [...] sensorine ural hearing loss of right ear 96295206831 105 Active 2019 Mixed conductiv e and sensorine ural hearing loss, unilatera l, right ear, with unrestric meron hearing on the contralat eral side; Note: Date Diagnosed : 03/10/2020 12:04 PM (H90.71) Not Available [facility] 4 03:20:59 Chronic serous otitis media of right ear 031051153 Active 2019 Chronic serous otitis media, right ear; Note: Date Diagnosed : 03/10/2020 12:47 PM (H65.21) Not Available [facility] 4 03:20:58 Tinnitus of right ear 47371781565 08 Active 2019 Tinnitus, right ear; Note: Date Diagnosed : 03/10/2020 12:04 PM (H93.11) Not Available [facility] 4 03:20:59 Disorder of right Eustachia n tube 39649692457 20565 Active 2021 Other specified disorders of Eustachia n tube, right ear; Note: Date Diagnosed : 09/21/2021 3:10 PM (H69.81) Not Available [facility] 4 03:20:59 Pain of right temporoma ndibular joint 01465614797 927459 Active 2021 Arthralgi a of right temporoma ndibular joint; Note: Date Diagnosed : 09/21/2021 3:11 PM (M26.621) Not Available [facility] 4 03:20:59 Conductiv e hearing loss 80284436 Active 2023 LUIS F HERRERA, [place] [address], [place], [address] , [place] - [facility] 4 10:50:09 Dysfuncti on of right eustachia n tube 41112937462 39917 Active 2023 KIM VELEZ MD [address] [facility],[place] [address], [place], [address] , [place] - [facility] 4 10:23:35 Dysfuncti on of eustachia n tube 75742912 Active 2023 KIM VELEZ MD [address] [facility],[place] [address], [place], [address] , [place] - [facility] 4 11:19:49 Impacted cerumen in right ear 54288632011 Active 2024 KIM VELEZ MD [address] [place] [address],[place] [address], [place], [address] , [place] - [facility] 5 13:22:59 Problem Notes None recorded. Procedures Surgical History Date Name Laterality Status Provider Name and Address Organization Details Recorded Time 5 Cerumen removal with microscope right completed KIM VELEZ MD [address] [place] [address],[address], [address], [facility] - [facility] 08/06/2024 13:23:20 4 Myringotomy w/Placement of Tube right completed KIM VELEZ MD [address] [facility],[address], [address], [facility] - [facility] 02/14/2024 10:24:04 4 Comp Audio with Tymps - 37859 & 62910 completed AURY HAMMONDS [address] [facility],[place] [address], [place], [address], [facility] - [facility] 02/06/2024 10:49:45 Imaging Results None recorded. Procedure [...] mg tablet 02/05 completed Medicati on ID: [id number] Giselle rand Name: lisinopr il Send Method: [...] Updated DateTime 08/06/2024 182.88 cm 30.5 kg/m2 560801.28 g Volodymyr Acosta [place] - [facility] 08/06/2024 12:56:14 Date Recorded Body height Body mass index (BMI) Body weight Provider Name and Address Organization Details Last Updated DateTime 02/06/2024 182.88 cm 30.5 kg/m2 060165.28 g Azalia Munoz [place] - [facility] 02/06/2024 10:31:17 Date Recorded Body height Body mass index (BMI) Body weight Provider Name and Address Organization Details Last Updated DateTime 02/14/2024 182.88 cm 30.5 kg/m2 780618.28 g Volodymyr Acosta [facility] 02/14/2024 10:03:15 Social History None recorded. Functional Status None recorded. Mental Status None recorded. Family History Nothing Reported. Medical History No medical history recorded. Past Encounters Encounter ID Performer Location Encounter Start Date Encounter Closed Date Diagnosis/Indication Diagnosis SNOMED-CT Code Diagnosis ICD10 Code Diagnosis IMO Codes Diagnosis Note [id number] MARIA DEL ROSARIO OAKLEY PA-C [facility] [address] [place] [id number] 02/06/2024 10:25:27 02/06/2024 11:41:43 Conductive hearing loss 35169658 H90.11 Audiologic al evaluation results: 02/06/2024 Right ear: Mild flat conductive hearing loss with excellent word recognitio n. Left ear: Normal hearing with excellent word recognitio n. Tympanomet ry: Right Ear:Type B Left Ear:Type A Chronic se joelle otitis media of right ear [id number] H65.21 [id number] KIM VELEZ MD [facility] [address] [place] [id number] 02/14/2024 09:58:30 02/14/2024 10:37:19 Chronic serous otitis media of right ear 911618291 H65.21 tube placed without difficulty . noted improved hearing. f/u 6months for tube check Dysfunctio n of right eustachian tube 5002667244 847093 H69.91 see above [id number] KIM VELEZ MD [facility] [address] [place] [address] 08/06/2024 12:54:12 08/06/2024 13:21:27 Chronic serous otitis media of right ear 334696946 H65.21 resolved. i removed an extruded tube and cerumen. I congratula meron him on stopping smoking. He may f/u as needed. Dysfunctio n of right eustachian tube 4832910904 769145 H69.91 see above Impacted c erumen in right ear 8075502436 052902 H61.21 Recurrent Cerumen Impactions : Ears were [...] Mckeon Member ID Guarantor Name 02/06/2024 1 [place] [facility] Michele Steffanyfettone [id number] Michele Maffettone 08/06/2024 1 [facility] - DOS ON OR AFTER 2022 - [facility] (MEDICAID REPLACEMENT - HMO) Michele Maffettone [id number] Michele Maffettone Notes Date Note Type Note [...] month now. No otorrhea. KIM VELEZ MD [address] [place] [address], [place], [address], [place] - [facility] 02/06/2024 11:33:16 02/14/2024 text/html ROS as noted in the HPI Hx of ETD and CSOM AD. Hx ot t-tube in the past. Audio last week showed CHL with a flat tymp AD. Interested in tube placement again. Prior nasal endo normal. KIM VELEZ MD [address] [place] [address], [address], [place] - [facility] 02/14/2024 13:47:37 08/06/2024 text/html ROS as noted in the HPI Hx of ETD and CSOM AD. Hx ot t-tube AD. Quit smoking since the last visit. He is still hearing well as far as he can tell. Prior nasal endo normal. KIM VELEZ MD [address] [place] [address],[place] [address], [place], [address], [place] - [facility] 08/06/2024 13:23:52
--- OUTSIDE RECORDS SUMMARY | 2025-04-22 14:00 | XMS_ITS ---
Author Organization [facility] Address [address] [facility] [address] [place] [address] Phone Care Team Providers Care Barrel Loader Name Role Phone Lana Simmons MD Unavailable Stormy Valdovinos Primary Care Provider Royce Gr MD Unavailable [phone] Active Problems Patient Care Coordination No te [...]
== END 2025-04-21 21:10 | disposition home or self-care (01) ==
PROVIDERS: Physician Assistant Medical; Emergency Provider Emergency Medicine Emergency Medical Services; PCP Physician Assistant
DX: R10.84 Generalized abdominal pain (principal); D3A.098 Benign carcinoid tumors of other sites; Z88.8 Allergy status to other drugs, medicaments and biological substances
CPT/HCPCS: 36415; 80048; 80076; 80307; 81003; 83690; 83735; 84484; 85025; 93005; 96361; 96374; 96375; 96376; 99285; J1171; J1200

== ENCOUNTER → 2025-04-21 18:06 | Outpatient (BNV) | payer MEDICAID, SELFPAY | PROVIDERS: Emergency Provider Emergency Medicine Emergency Medical Services; PCP Physician Assistant; Visit Provider Internal Medicine | DX: R07.9 Chest pain, unspecified (principal) | CPT/HCPCS: 93010 ==